=== PATIENT | male | born 1965 | race Caucasian/White ===

== ENCOUNTER 2023-02-04 22:13 | Outpatient (REF) | payer MEDICAID, SELFPAY ==
[2023-02-04 22:04] LABS: HCT 46.1 % (40.0-50.0); HGB 15.2 g/dL (13.5-17.5); MCH 28.8 pg (27.0-33.0); MCV 88 fL (80-95); MPV 10.3 fL (8.0-11.0); Platelet Count 254 10^3/uL (130-400); RBC 5.27 10^6/uL (4.36-5.78); RDW 13.2 % (11.8-14.1); RDW-SD 42.8 fL
[2023-02-04 22:17] LABS: Hemoglobin A1C 5.6 % (<5.7)
[2023-02-04 22:21] LABS: ALT 21 U/L (16-63); AST 17 U/L (15-37); Albumin 4.1 g/dL (3.4-5.0); Alkaline Phosphatase 69 U/L (46-116); Anion Gap 11.2 mmol/L (3-11); BUN 10 mg/dL (7-18); Bilirubin, Total 0.5 mg/dL (0.2-1.0); CO2 24.8 mmol/L (21.0-32.0); CREATININE 0.9 mg/dL (0.70-1.30); Calcium 9.2 mg/dL (8.5-10.1); Calculated LDL 142 mg/dL (<100); Chloride 105 mmol/L (98-107); Cholesterol 205 mg/dL (<200); Estimated GFR 100.24 (mL/min/1.73m2); Glucose 93 mg/dL (74-106); HDL Cholesterol 45 mg/dL (40-60); Potassium 4.3 mmol/L (3.5-5.1); Sodium 141 mmol/L (136-145); TSH (W/Ref FT4) 0.71 uIU/mL (0.36-3.74); Total Protein 7.2 g/dL (6.4-8.2); Triglyceride 92 mg/dL (<150)
[2023-02-04 22:29] LABS: Amylase 61 U/L (25-115); Lipase 32 U/L (16-77)
== END 2023-02-04 22:14 | disposition home or self-care (01) ==
LOC: LBN 22:13
PROVIDERS: PCP Nurse Practitioner Family; Visit Provider Nurse Practitioner Family
DX: F32.9 Major depressive disorder, single episode, unspecified (principal); F41.9 Anxiety disorder, unspecified; G89.29 Other chronic pain; J44.9 Chronic obstructive pulmonary disease, unspecified; M79.7 Fibromyalgia
CPT/HCPCS: 80053; 80061; 83690; 85027; 82150; 83036; 84443

== ENCOUNTER 2023-02-25 03:55 | Outpatient (CLI) | payer MEDICAID, SELFPAY ==
[2023-02-25] MEDS: Levalbuterol HFA 15 GM INH 4 PUFF IH (14:37)
[2023-02-25] MEDS: Inhaler, Assist Device 1 EACH MC (14:38)
--- NOTE | 2023-02-25 15:45 | W.6MWT ---
Date of service: 02/25/23 Time of Service: 12:50 6 Minute Walk Test Note: 6 Minute Walk Test Distance walked: 1300 feet Desaturations: 97% to 92% Heart rate changes: 89 to 113 bpm Recommendation: No supplemental O2 needed Chika Vaughan MD Pulmonary & Critical Care Medicine
--- NOTE | 2023-03-10 11:07 | W.PFT ---
Date of service: 03/27/23 Time of Service: 13:12 Pulmonary Function Test Result Indications: COPD Interpretation Spirometry: There is severe airflow limitation. No significant bronchodilator response. Lung Volumes: There is air trapping and hyperinflation Diffusion Capacity: Decreased diffusion Airway Pressure: Increased airways resistance Impression Severe airflow limitation with air trapping and a decreased diffusion. Clinical Correlation therefore is recommended.
== END 2023-02-25 03:56 | disposition home or self-care (01) ==
LOC: RT 03:55
PROVIDERS: PCP Nurse Practitioner Family; Visit Provider Physician Assistant Surgical
DX: J44.9 Chronic obstructive pulmonary disease, unspecified (principal)
CPT/HCPCS: 94060; 94726; 94729

== ENCOUNTER → 2023-02-28 00:14 | Outpatient (CLI) | payer MEDICAID, SELFPAY ==
[2023-02-28] MEDS: Normal Saline - Diluent 50 ML VIAL IJ (15:35)
[2023-02-28] MEDS: Barium Sulfate 2% W/V-Berry Smoothie 450 ML BTL 900 ML PO (15:36)
[2023-02-28] MEDS: Omnipaque 350 MG/ML 500 ML BTL-Imaging package 100 ML IJ (15:37)
--- NOTE | 2023-02-28 15:50 | DI.CT_ITS ---
Exam(s) CT ABDOMEN PELVIS W EXAM: CT ABDOMEN PELVIS W CLINICAL HISTORY: continued abd pain,luq,r10.12 TECHNIQUE: Imaging Protocol: Axial computed tomography images with coronal and sagittal reformatted images were created and reviewed CONTRAST MATERIAL: Intravenous: Omnipaque 350 Contrast volume:100 mL Oral: Yes COMPARISON: CT UPPER ABD WITH CONTRAST (P) from 06/02/2015 FINDINGS: ABDOMEN: Lung Bases: Mild emphysematous changes are seen in the lung bases. There is a stable 5 mm nodule in the right lower lobe. Liver: Normal density. No measurable mass. Portal, Superior Mesenteric, and Splenic Veins: Unremarkable. Gallbladder and Biliary Tract: No radiodense calculus or dilation. Pancreas: Normal density, no abnormal calcifications or inflammatory process. Spleen: Normal. Adrenals: No masses seen. Kidneys: Normal size, contour and axis. No radiodense stones or obstructive uropathy. No masses seen. Abdominal Aorta: Abdominal portion non-dilated. Atherosclerosis. There is occlusion of the left comm on iliac artery with reconstitution of the left internal and external carotid arteries distally. Bowel: No obstruction or bowel wall thickening. Appendix is unremarkable. Peritoneal Cavity: No ascites, collection or mesenteric inflammatory response. No free air. Lymph Nodes: Within normal limits. Bones: Within normal limits for the patient's age. Soft Tissues: Unremarkable. PELVIS: Bladder: There is a 2.3 x 3.7 cm diverticulum arising from the right aspect of the urinary bladder. Reproductive Organs: Mildly enlarged. Lymph Nodes: Within normal limits. Bones: Within normal limits for the patient's age. IMPRESSION: 1. Occlusion of the left common iliac artery with reconstitution of the left internal neck sternal il iac arteries distally. 2. Atherosclerosis. 3. Stable 5 mm nodule in the right lower lobe. 4. Right-sided urinary bladder diverticulum. RADIATION DOSE DELIVERED: Total DLP DATA REPOSITORY: All CT scans at this facility are submitted to the National Radiology Data Registry (NRDR) Dose Index Registry (DIR) with the [employer] (ACR). RADIATION OPTIMIZATION: All CT scans at this facility use at least one of these dose optimization te chniques: automated exposure control; mA and/or kV adjustment per patient size (includes targeted exa ms where dose is matched to clinical indication); or iterative reconstruction.
== END ==
PROVIDERS: PCP Nurse Practitioner Family; Visit Provider Nurse Practitioner Family
DX: I74.5 Embolism and thrombosis of iliac artery (principal); R91.1 Solitary pulmonary nodule; N32.3 Diverticulum of bladder
CPT/HCPCS: 74177

== ENCOUNTER 2023-03-13 01:48 | Outpatient (CLI) | payer MEDICAID, SELFPAY ==
--- NOTE | 2023-03-13 07:30 | DI.CTLCSR_ITS ---
Exam(s) CT CHEST LUNG CANCER SCREEN EXAM: CT CHEST LUNG CANCER SCREEN CLINICAL HISTORY: Screening for lung cancer,current smoker, f17.210 TECHNIQUE: Imaging Protocol: Axial computed tomography images with coronal and sagittal reformatted images were created and reviewed. Low dose screening protocol. COMPARISON: CT UPPER ABD WITH CONTRAST (P) from 06/02/2015 FINDINGS: Tracheobronchial tree: No bronchiectasis or mucus plugging.. Mediastinum and Alison: No dominant adenopathy or fluid collection. Pulmonary parenchyma: No consolidation or dominant measurable mass. Moderate to severe emphysematous changes, greater in the upper lobes. Emphysematous changes. Lung Nodules: Stable 5 millimeter nodule lateral inferior right lower lobe. 5 millimeter nodule righ t middle lobe. 3 millimeter nodule posterior right upper lobe. Pleura: No effusion. No pneumothorax. Heart: The heart is not dilated. Moderate coronary artery calcifications are seen. Aorta: Thoracic aorta non-dilated.Mild atherosclerotic changes. Upper abdomen: Unremarkable. Bones: Unremarkable for age. Soft Tissues: Unremarkable. IMPRESSION: No suspicious pulmonary nodules. Lung RADS Cat 2. Lung-RADS 1.0 CATEGORIES: Category 0 - Prior chest CT exam(s) being located for comparison. Category 1 - Annual screening in 12 months. No nodules or definitely benign nodules. Category 2 - Annual screening in 12 months. Benign appearance. Nodules with low likelihood of becomin g active cancer. Category 3 - 6-month follow-up. Probably benign. Short-term follow-up suggested. Nodules with low lik elihood of becoming active cancer. Category 4A - 3-month follow-up and CT/PET if >8 mm in size. Suspicious finding. Findings which requi re additional testing. Category 4B - Findings which require additional testing and tissue sampling. Category 4X - Category 3 or 4 nodules with additional features or imaging findings that increases the suspicion of malignancy. Modifier S- Potentially clinically significant findings (non lung cancer) RADIATION DOSE DELIVERED: Total DLP DATA REPOSITORY: All CT scans at this facility are submitted to the National Radiology Data Registry (NRDR) Dose Index Registry (DIR) with the [employer] (ACR). RADIATION OPTIMIZATION: All CT scans at this facility use at least one of these dose optimization te chniques: automated exposure control; mA and/or kV adjustment per patient size (includes targeted exa ms where dose is matched to clinical indication); or iterative reconstruction.
== END 2023-03-13 01:49 ==
PROVIDERS: PCP Nurse Practitioner Family; Visit Provider Physician Assistant Surgical
DX: F17.210 Nicotine dependence, cigarettes, uncomplicated (principal); Z12.2 Encounter for screening for malignant neoplasm of respiratory organs
CPT/HCPCS: 71271

== ENCOUNTER 2023-11-21 08:37 | Outpatient (CLI) | payer MEDICAID, SELFPAY ==
--- NOTE | 2023-11-21 07:45 | DI.CT_ITS ---
Exam(s) CT CHEST PE CTA EXAM: CT CHEST PE CTA CLINICAL HISTORY: Acute dyspnea, R06.00. TECHNIQUE: Imaging Protocol: CT angiography of the chest was performed using pulmonary embolus kristian col. Multi planar reconstructions were performed. CONTRAST MATERIAL: Intravenous: Omnipaque 350 Contrast volume: 100 cc COMPARISON: No exams were available for comparison FINDINGS: CHEST: PULMONARY ARTERIES: There are no intraluminal filling defects to suggest acute pulmonary emboli. LUNGS: Hyperinflation but no infiltrates nor pleural effusions. No evidence of pulmonary infarction. No ominous pulmonary nodules. No facet nicotine focal findings in the trachea and left mainstem br onchus. There is some mucus in the proximal right mainstem bronchus noted. There is no bronchiectas is.. MEDIASTINUM: There is no hilar nor mediastinal adenopathy. Visualized thyroid unremarkable. CARDIAC: Heart size is upper normal. There is no pericardial effusion.Caliber of the thoracic aorta is within normal limits. No evidence of aortic dissection. There is no significant shift of the inte rventricular septum. OSSEOUS: No fractures. No significant osseous lesions . IMPRESSION: 1. No evidence of acute pulmonary emboli. No evidence of pulmonary infarction.No pulmonary infiltrat es nor pleural effusions. 2. Some mucus is noted the right mainstem bronchus. There is no bronchiectasis. 3. See separate abdominal CT angiography report for significant findings. RADIATION DOSE DELIVERED: Total DLP DATA REPOSITORY: All CT scans at this facility are submitted to the National Radiology Data Registry (NRDR) Dose Index Registry (DIR) with the [employer] (ACR). RADIATION OPTIMIZATION: All CT scans at this facility use at least one of these dose optimization te chniques: automated exposure control; mA and/or kV adjustment per patient size (includes targeted exa ms where dose is matched to clinical indication); or iterative reconstruction.
--- NOTE | 2023-11-21 07:45 | DI.CT_ITS ---
Exam(s) CT ABDOMEN PELVIS CTA EXAM: CT ABDOMEN PELVIS CTA CLINICAL HISTORY: abdominal pain, iliac artery occlusion, R10.84. TECHNIQUE: Imaging Protocol: Axial computed tomography images with coronal and sagittal reformatted images were created and reviewed CONTRAST MATERIAL: Intravenous: Omnipaque 350 Contrast volume:100 ml Oral: None COMPARISON: CT CT CHEST PE CTA from 11/21/2023 FINDINGS: CTA ABDOMEN: ABDOMINAL AORTA/AORTOILIAC SEGMENTS: There is a fusiform infrarenal abdominal aortic aneurysm extending from just below the renal arteries down an to just above the bifurcation. There is abundant mural thrombus in this aneurysm. Maximum external diameter of the aneurysm is 2.6 cm. The left common iliac artery is occluded at its origin. The left external Iliac artery is reconstituted via retrograde flow in the left internal iliac artery. There is a mode rate focal stenosis at the mid aspect of the left external iliac artery. There is a focal stenosis at the origin of the left internal iliac artery. The right common iliac artery is not occluded but exhibits atherosclerotic involvement and there is a nonocclusive focal dissections vessel. There is, however, no significant stenosis at the junction o f the right common and right external iliac arteries and no significant stenosis in the right externa l iliac artery. There is moderate stenosis at the origin of the right internal iliac artery. Common femoral artery on the right side exhibits some posterior calcified plaque but no occlusion. T he proximal right SFA is patent. Left common femoral artery is a thin but patent vessel. Partially visualized proximal left SFA appears patent. There is no ascites. No obvious ischemic appearing bowel loops. LIVER: There are no focal hepatic lesions nor dilatation of intrahepatic ducts. GALLBLADDER/BILIARY: No obvious acute gallbladder pathology. CBD is not dilated. PANCREAS: Pancreas is difficult to delineate to due to the paucity of fat. SPLEEN: Spleen is not enlarged. There are no intrasplenic lesions. ADRENALS: There are no significant adrenal masses. KIDNEYS: No cysts evident. No calculi nor hydronephrosis. No solid renal masses. ABDOMINAL AORTA: The abdominal aorta is not enlarged. LYMPH NODES: There is no retroperitoneal nor para-aortic adenopathy. No obvious mesenteric masses. ABDOMINAL WALL: No evidence of significant anterior abdominal wall hernia. GI: There is no evidence of bowel obstruction, free air, nor abscess. PELVIS: LYMPH NODES: There is no intrapelvic nor inguinal adenopathy. GI: No evidence of appendicitis.No evidence of sigmoid diverticulitis. URINARY BLADDER: No calculi nor masses evident REPRODUCTIVE: Prostate size upper normal. OSSEOUS: No significant osseous lesions. IMPRESSION: 1. Fusiform infrarenal abdominal aortic aneurysm maximum external diameter 2.6 cm. 2. There is OCCLUSION OF THE LEFT COMMON ILIAC ARTERY AT ITS ORIGIN. The left external iliac artery is reconstituted by retrograde flow in the left internal iliac artery. 3. There is no occlusion of the right common iliac artery but there is significant atherosclerotic di sease in this vessel as well as nonocclusive focal dissection evident in this vessel. There is no cr itical stenosis at its junction with the right external iliac artery. 4. Celiac artery, SMA, DIANNA, and renal arteries are patent without significant stenosis evident in the se vessels. RADIATION DOSE DELIVERED: Total DLP DATA REPOSITORY: All CT scans at this facility are submitted to the National Radiology Data Registry (NRDR) Dose Index Registry (DIR) with the [employer] (ACR). RADIATION OPTIMIZATION: All CT scans at this facility use at least one of these dose optimization te chniques: automated exposure control; mA and/or kV adjustment per patient size (includes targeted exa ms where dose is matched to clinical indication); or iterative reconstruction.
[2023-11-21] MEDS: Normal Saline - Diluent 50 ML VIAL IJ (16:45)
[2023-11-21] MEDS: Omnipaque 350 MG/ML 100 ML BTL IJ (16:45)
--- NOTE | 2023-11-21 17:23 | DI.VRAD_ITS ---
PROCEDURE INFORMATION: Exam: CTA Abdomen and Pelvis With Contrast Exam date and time: 11/21/2023 4:23 PM Age: 58 years old Clinical indication: Other: Abdominal pain, iliac artery occlusion, r10.84 TECHNIQUE: Imaging protocol: Computed tomographic angiography of the abdomen and pelvis with contrast. Exam focused on the arteries. 3D rendering (Not supervised by radiologist): MIP and/or 3D reconstructed images were created by the technologist. Contrast material: 350; Contrast volume: 100 ml; Contrast route: INTRAVENOUS (IV); COMPARISON: CT ABDOMEN PELVIS W 02/28/2023 3:40 PM FINDINGS: Aorta: Redemonstrated is aneurysmal dilatation of the infrarenal abdominal aorta that measures 2.9 x 2.4 cm. There is eccentric mural thrombus especially on the right side of the aorta resulting in 50-60 % stenosis when compared to the distal portion of the aorta. No evidence of dissection. Celiac trunk and mesenteric arteries: No occlusion or significant stenosis. Renal arteries: No occlusion or significant stenosis. Right iliac arteries: Proximal common iliac artery has 50-60% stenosis. Left iliac arteries: Redemonstrated is occlusion of the common artery. Pelvic vessels reconstitute the external iliac artery. Liver: No mass. Gallbladder and biliary ducts: Unremarkable. No calcified stones. No ductal dilation. Pancreas: Unremarkable. No mass. No ductal dilation. Spleen: Unremarkable. No splenomegaly. Adrenal glands: Unremarkable. No mass. Kidneys and ureters: Unremarkable. No solid mass. No hydronephrosis. Stomach and bowel: Unremarkable. No obstruction. No mucosal thickening. Appendix: No evidence of appendicitis. Intraperitoneal space: Unremarkable. No free air. No significant fluid collection. Lymph nodes: Unremarkable. No enlarged lymph nodes. Urinary bladder: Unremarkable. No mass. Reproductive: Unremarkable as visualized. Bones/joints: No acute fracture. Soft tissues: Unremarkable. IMPRESSION: 1. Redemonstrated is mural thrombus within a small infrarenal abdominal aorta aneurysm that has moderate stenosis. 2. Redemonstrated is occlusion of the left common iliac artery. There is reconstitution of the external iliac artery by pelvic collaterals. 3. Redemonstrated is moderate stenosis of the proximal right iliac artery. Dictated and Authenticated by: Heriberto Garcia MD. Ordering:CARLYLE Shultz MD
--- NOTE | 2023-11-21 17:36 | DI.VRAD_ITS ---
PROCEDURE INFORMATION: Exam: CTA Chest With Contrast Exam date and time: 11/21/2023 4:23 PM Age: 58 years old Clinical indication: Other: Acute dyspnea TECHNIQUE: Imaging protocol: Computed tomographic angiography of the chest with contrast. Exam focused on the arteries. 3D rendering (Not supervised by radiologist): MIP and/or 3D reconstructed images were created by the technologist. Contrast material: 350; Contrast volume: 100 ml; Contrast route: INTRAVENOUS (IV); COMPARISON: CT CHEST LUNG CANCER SCREEN 03/13/2023 9:28 AM FINDINGS: Pulmonary arteries: Normal. No pulmonary emboli. Aorta: Unremarkable. No aortic aneurysm. No aortic dissection. Lungs: Moderate centrilobular emphysema. No consolidations, nodules or masses. Pleural spaces: Unremarkable. No pneumothorax. No pleural effusion. Heart: Unremarkable. No cardiomegaly. No pericardial effusion. Lymph nodes: Unremarkable. No enlarged lymph nodes. Bones/joints: Unremarkable. No acute fracture. Soft tissues: Unremarkable. IMPRESSION: 1. Examination negative for pulmonary emboli, thoracic aortic aneurysm or dissection. 2. See dedicated abdominal and pelvic CTA examination for further details. Dictated and Authenticated by: Heriberto Garcia MD. Ordering:CARLYLE Shultz MD
== END 2023-11-21 08:57 ==
LOC: DI 08:38
PROVIDERS: PCP Nurse Practitioner Family; Visit Provider Physician Assistant
DX: R06.00 Dyspnea, unspecified (principal); R10.84 Generalized abdominal pain
CPT/HCPCS: 71275; 74174; J3490

== ENCOUNTER 2024-02-17 04:30 | Outpatient (CLI) | payer MEDICAID, SELFPAY ==
[2024-02-17 12:23] LABS: HCT 48.8 % (40.0-50.0); HGB 16.1 g/dL (13.5-17.5); MCH 29.7 pg (27.0-33.0); MCV 90 fL (80-95); MPV 10.4 fL (8.0-11.0); Platelet Count 313 10^3/uL (130-400); RBC 5.43 10^6/uL (4.36-5.78); RDW 13.2 % (11.8-14.1); RDW-SD 43.3 fL; WBC 7.42 10^3/uL (4.4-10.8)
[2024-02-17 12:43] LABS: ALT 32 U/L (16-63); AST 22 U/L (15-37); Alkaline Phosphatase 85 U/L (46-116); Anion Gap 6.1 mmol/L (3-11); BUN 13 mg/dL (7-18); Bilirubin, Total 0.43 mg/dL (0.2-1.0); CO2 31.9 mmol/L (21.0-32.0); CREATININE 0.9 mg/dL (0.70-1.30); Calcium 9.3 mg/dL (8.5-10.1); Calculated LDL 71 mg/dL (<100); Chloride 105 mmol/L (98-107); Cholesterol 144 mg/dL (<200); Estimated GFR 99.62 (mL/min/1.73m2); Glucose 92 mg/dL (74-106); HDL Cholesterol 55 mg/dL (40-60); Sodium 143 mmol/L (136-145); TSH (W/Ref FT4) 1.71 uIU/mL (0.36-3.74); Total Protein 8.1 g/dL (6.4-8.2); Triglyceride 92 mg/dL (<150)
[2024-02-17 12:56] LABS: Hemoglobin A1C 5.5 % (<5.7)
== END 2024-02-17 04:31 | disposition home or self-care (01) ==
LOC: LOS 04:31
PROVIDERS: PCP Nurse Practitioner Family; Referring Provider Nurse Practitioner Family; Visit Provider Nurse Practitioner Family
DX: Z00.00 Encounter for general adult medical examination without abnormal findings (principal); F41.9 Anxiety disorder, unspecified; F32.9 Major depressive disorder, single episode, unspecified; I10 Essential (primary) hypertension; R10.9 Unspecified abdominal pain; G89.29 Other chronic pain; J44.9 Chronic obstructive pulmonary disease, unspecified; F17.210 Nicotine dependence, cigarettes, uncomplicated; M79.7 Fibromyalgia; Z12.5 Encounter for screening for malignant neoplasm of prostate
CPT/HCPCS: 36415; 80053; 80061; 84153; 85027; 83036; 84443

== ENCOUNTER 2024-04-26 05:26 | Inpatient (IN) | payer MEDICAID, SELFPAY ==
[2024-04-26] VITALS (128 sets, daily range): BP systolic 65–199; BP diastolic 50–126; PULSE 81–163; RESP 2–36; TEMP 35.1–37.4; O2SAT 67–100
--- NOTE | 2024-04-26 05:15 | RT.EKG_ITS ---
APPROVED REPORT Exam: Resting ECG Reason for Exam: Respiratory distress Patient Location: E HR:140 bpm ECG Measurements Heart Rate 140 AXIS NJ 119 P 85 QRSd 91 QRS 87 QT 297 T 71 QTc 454 Conclusion Sinus tachycardia...rate> 99 Nonspecific T abnormalities, lateral leads...T <-0.10mV, I aVL V5 V6 Normal [place] I have reviewed and interpreted ECG and agree with software generated interpretation.
--- NOTE | 2024-04-26 05:30 | DI.RAD_ITS ---
Exam(s) XR PORTABLE CHEST AP EXAM: XR PORTABLE CHEST AP CLINICAL HISTORY: SOB. TECHNIQUE: 2D digital imaging was performed. COMPARISON: CR ABD FLAT UPRIGHT PA CHEST from 04/13/2015 FINDINGS: Single AP portable view. Chest leads in place Heart size normal. The mediastinum is not widened. Bilateral hyperinflation noted. No infiltrates in the left lung. Slightly increased markings in the right lung base. Also mild blunting of the costophrenic angles which may imply small bilateral pleu ral effusions. IMPRESSION: Hyperinflation bilaterally. Possible mild infiltrate right lung base. Bilateral pleural based scarring versus small bilateral pleural effusions. DATA REPOSITORY: RADIATION DOSE DELIVERED:
[2024-04-26] MEDS: LORazepam 2 MG/ML VIAL (05:35)
[2024-04-26] MEDS: Normal Saline 1,000 ML 1000 ML IV (05:37)
[2024-04-26] MEDS: MAGNESIUM SULFATE 2 GM/50 ML BAG 300 GM (05:38)
[2024-04-26] MEDS: methylPREDNISolone SUCC 125 MG VIAL (05:38)
--- NOTE | 2024-04-26 05:44 | ED.GENADUL_ITS ---
Discharge Plan Disposition [facility] Condition: Critical Discharge Details Clinical Impression: COPD with acute exacerbation, Acute respiratory failure, Demand ischemia Primary Care Provider: Celeste Rodrigues ED Provider: Tyson Kimble Meds and New Rx's Prescriptions: No Action pregabalin [Lyrica] 25 mg capsule 25 mg PO BID Qty: 180 3RF ipratropium-albuterol 0.5 mg-3 mg(2.5 mg base)/3 mL solution for nebulization 3 ml inhalation QID PRN (Reason: wheezing) Qty: 180 12RF Airsupra 90-80 mcg/actuation HFA aerosol inhaler 2 inh inhalation ONCE Qty: 10.7 12RF Rx Instructions: as a single dose; may repeat up to 6 doses per day (12 inhalations) albuterol sulfate 90 mcg/actuation HFA aerosol inhaler 2 puff Inhalation Q6H PRN Qty: 3 4RF aspirin [Adult Aspirin Regimen] 81 mg tablet,delayed release (DR/EC) 81 mg PO DAILY Qty: 90 1RF atorvastatin 20 mg tablet 20 mg PO DAILY Qty: 90 3RF cilostazol 100 mg tablet 100 mg PO BID Qty: 180 1RF losartan 25 mg tablet 25 mg PO DAILY Qty: 90 1RF Spiriva Respimat 2.5 mcg/actuation mist 2 puff inhalation DAILY Qty: 4 2RF budesonide-formoterol [Symbicort] 160-4.5 mcg/actuation HFA aerosol inhaler 2 puff inhalation Q12H Qty: 20.4 1RF HPI General Mode of arrival: EMS . Date/Time Provider Initiated Documentation: 04/26/24 05:44 . Limitations to Documentation: other (resp distress) . Information obtained by: patient, EMS, RN notes reviewed and old records reviewed . HPI Narrative: Patient brought into ED by ambulance with respiratory distress. Patient with history of COPD. He still smokes. He is unable to provide much of a history. Per EMS it is reported that he has been having increased difficulty breathing over the last 2 to 3 days. Unknown whether he has had fever or not. Denies any type of pain. Received a DuoNeb treatment and is now on continuous albuterol neb. Did not tolerate CPAP in the field. IV established just prior to arrival, no meds given. Related Data Home Medications ?Medication ?Instructions ?Recorded ?Confirmed albuterol sulfate 90 mcg/actuation 2 puff inhalation Q6H PRN ##3 11/28/23 03/09/24 aerosol inhaler aspirin 81 mg tablet,delayed 81 mg PO DAILY #90 tabs 11/28/23 03/09/24 release (Adult Aspirin Regimen) atorvastatin 20 mg tablet 20 mg PO DAILY #90 tabs 11/28/23 03/09/24 cilostazol 100 mg tablet 100 mg PO BID #180 tabs 11/28/23 03/09/24 losartan 25 mg tablet 25 mg PO DAILY #90 tabs 11/28/23 03/09/24 ipratropium 0.5 mg-albuterol 3 mg 3 ml inhalation QID PRN wheezing 12/02/23 03/09/24 (2.5 mg base)/3 mL nebulization #180 mL soln tiotropium bromide 2.5 2 puff inhalation DAILY #4 grams 12/10/23 03/09/24 mcg/actuation mist for inhalation (Spiriva Respimat) budesonide-formoterol HFA 160 2 puff inhalation Q12H #20.4 grams 12/16/23 03/09/24 mcg-4.5 mcg/actuation aerosol inhaler (Symbicort) pregabalin 25 mg capsule (Lyrica) 25 mg PO BID #180 caps 02/10/24 03/09/24 albuterol 90 mcg-budesonide 80 2 inh inhalation ONCE #10.7 grams 03/10/24 03/10/24 mcg/actuation HFA aerosol inhaler (Airsupra) Previous Rx's ?Medication ?Instructions ?Recorded albuterol sulfate 90 mcg/actuation 2 puff inhalation Q6H PRN ##3 11/28/23 aerosol inhaler aspirin 81 mg tablet,delayed 81 mg PO DAILY #90 tabs 11/28/23 release (Adult Aspirin Regimen) atorvastatin 20 mg tablet 20 mg PO DAILY #90 tabs 11/28/23 cilostazol 100 mg tablet 100 mg PO BID #180 tabs 11/28/23 losartan 25 mg tablet 25 mg PO DAILY #90 tabs 11/28/23 ipratropium 0.5 mg-albuterol 3 mg 3 ml inhalation QID PRN wheezing 12/02/23 (2.5 mg base)/3 mL nebulization #180 mL soln tiotropium bromide 2.5 2 puff inhalation DAILY #4 grams 12/10/23 mcg/actuation mist for inhalation (Spiriva Respimat) budesonide-formoterol HFA 160 2 puff inhalation Q12H #20.4 grams 12/16/23 mcg-4.5 mcg/actuation aerosol inhaler (Symbicort) pregabalin 25 mg capsule (Lyrica) 25 mg PO BID #180 caps 02/10/24 albuterol 90 mcg-budesonide 80 2 inh inhalation ONCE #10.7 grams 03/10/24 mcg/actuation HFA aerosol inhaler (Airsupra) Allergies Allergy/AdvReac Type Severity Reaction Status Date / Time No Known Allergies Allergy Unverified 03/09/24 13:26 General Stated Complaint: SOB PEGGY: 2 Review of Systems Unobtainable due to (Unobtainable due to respiratory distress) Exam Narrative Exam Narrative: Const: Thin male in respiratory distress. Somewhat ashen and cyanotic. VS per triage. HEENT: NC/AT. Normal facial exam. Neck: Supple. Trachea midline. Lungs: Respiratory distress with minimal air movement. Cor: RRR without murmur. Tachy GI: Soft/ND/NT. Neuro: Somewhat altered. Cranial nerves II - XII grossly intact. No gross motor or sensory deficit. Ext: BLE edema R > L. Course Vital Signs Vital signs: Vital Signs Temperature 95.2 F L 04/26/24 05:24 Pulse 163 H 04/26/24 05:24 Respiratory Rate 28 H 04/26/24 05:24 Pulse Oximetry 67 L 04/26/24 05:24 Temperature 95.2 F L 04/26/24 05:24 Temperature Source Tympanic 04/26/24 05:24 Pulse 163 H 04/26/24 05:24 Respiratory Rate 28 H 04/26/24 05:24 Blood Pressure Position Sitting 04/26/24 05:24 Pulse Oximetry 67 L 04/26/24 05:24 Oxygen Delivery Method Room Air 04/26/24 05:24 Oxygen Flow Rate 0 04/26/24 05:24 Procedure Airway Management Date of Procedure: 04/26/24 Time of Procedure: 06:00 Patient Consented: Emergent Case Indication: Respiratory failure Provider that performed the procedure: Tyson Kimble Mallampati Class: Unable to Assess Sedation administered by provider performing procedure: Yes Sedation Given: Etomidate Route of Administration: IV. Etomidate dose(mg): 20.. Induction setup: BiPAP/CPAP and Delayed Sequence Induction Ultrasound: Not used Airway Type: Intubation Laryngoscopy: Edentulous. Grade: Airway Grade: 1. Airway Blades: Glidescope 3. Endotracheal Tube: Oral and 7.5mm. Secured at(cm): 24. Placement Confirmation: Cuff inflated with minimally occlusive pressure. Paralytic(indicate dose given): Rocuronium Post Induction Medication Management(indicate dose given): Managed by Requesting Provider and Propofol (mcg/kg/min) (40) Gastric Tube: Other (placed by me) Procedure Complications: Other (tube dislodged when stylet being removed) Procedure Outcome: Successful Procedure Description Note: Patient had been on BiPAP which he had been tolerating and was left on BiPAP just prior to induction. Patient given 20 of etomidate and 100 of rocuronium. He was intubated on the first attempt with use of glide scope. Unfortunately, tube was dislodged while stylette being removed. This was recognized immediately by me due to sound of air leak. Confirmed with glide scope that the tip of tube was past the vocal cords but the balloon was sitting right at the cords. Balloon deflated and attempted to advance ET tube. This was unsuccessful so stylette was replaced, ET tube passed through the cords once again, confirmation of intubation with breath sounds and end-tidal CO2. Medical Decision Making Patient presenting to ED via EMS with respiratory distress. Patient has history of COPD and continues to smoke. Per EMS people at the house where he was staying report 2 to 3 days of increasing shortness of breath. Patient was given DuoNeb en route and albuterol continuous. He did not tolerate CPAP. On arrival he is cyanotic, in distress, somewhat altered. We were able to get the BiPAP mask on. He was quite anxious with this but with 1 mg of lorazepam IV he tolerated it fairly well. Second IV was established. IV Solu-Medrol, magnesium given. Heart rate noted to be 150. Liter of saline ordered. Laboratory studies including VBG, Fluvid, portable chest x-ray obtained. Patient placed on continuous albuterol neb. Portable chest x-ray per my read showed hyperinflation but no pneumothorax or infiltrate. His EKG is sinus tachycardia with some nonspecific lateral ST changes likely rate related. Laboratory studies with normal white count and hemoglobin. VBG with a pH 7.23 and pCO2 of 58. Chemistries, kidney function normal. Liver function with mild abnormality. Initial troponin 341. Patient did well for about an hour with improvement of his work of breathing on BiPAP with continuous neb running. He actually had some increased aeration and wheezing heard. However, he began to have increased work of breathing and anxiety once again. Lung sounds were markedly diminished. Seem to be imminent respiratory failure. Had confirmed with him that intubation would be okay. With his decline elected to intubate. He was left on BiPAP. Saturations were 100%. He was given etomidate and rocuronium. BiPAP removed and patient intubated easily with a 7.5 ET tube using glide scope with MAC 3. Unfortunately, ET tube was dislodged during stylette removal. This was recognized by me almost immediately because of the abnormal sound of air leak with bagging. [place] scope reinserted and the tip of ET tube was noted to be through the cords but the balloon was above the cord. Balloon was let down but it was unable to advance the ET tube. ET tube removed and stylette replaced. Patient reintubated once again without difficulty. There was no issues removing the stylette. Breath sounds were heard though very diminished. End-tidal CO2 confirmed placement. Patient was started on propofol drip for sedation. NG tube was placed by me without difficulty. Chiu catheter placed by nursing. Postintubation chest x-ray obtained. Per my read there continues to be no pneumothorax. ET tube and NG tube in appropriate position. Repeat troponin was obtained approximately 90 minutes after the first. This is 397. I suspect this is demand, NSTEMI type II. Will continue continuous nebs through the ET tube. He remains quite tachycardic and he has bilateral lower extremity edema right much greater than left. While I suspect this is all COPD exacerbation I will obtain CTA to rule out pulmonary embolus. Discussed with hospitalist. Patient accepted to ICU for further management of COPD exacerbation, respiratory failure. Medical Records Medical records reviewed: Yes I reviewed the patient's medical records. Medical records narrative: Pulmonary notes Imaging Data Radiologic Study: Attestation: I personally reviewed and interpreted this imaging study as follows: Imaging: X-Ray My impression: Chest x-ray on arrival shows hyperinflation of lungs with no infiltrate. Postintubation chest x-ray shows no evidence pneumothorax with the ET tube and NG tube in position. Lab Data Lab results reviewed: Yes I reviewed the patient's lab results. Lab results narrative: See [facility] ECG Data Attestation: I personally reviewed and interpreted this ECG (s) as follows: Prior ECG tracings: not available for review Interpretation: See EKG/MDM Critical Care Time Critical Care Time Critical Care Time: Yes Total Critical Care Time: 90 Attestation: Upon my evaluation, this patient had a high probability of imminent or life- threatening deterioration, which required my direct attention, intervention, and personal management. I have personally provided 90 minutes of critical care time exclusive of time spent on separately billable procedures. Time includes monitoring for potential decompensation, ordering of tests and medications, review of laboratory and radiology results, discussion with consultants and documentation . Interventions were performed as documented above in procedures. [facility] All Active Problems (Updated 04/26/24 @ 08:15 by Tyson Kimble MD) Demand ischemia (Acute) Elevated troponin (Acute) COPD with acute exacerbation (Acute) Acute respiratory failure (Acute) Homeless (Acute) Bilateral tinnitus (Acute) Nicotine dependence, cigarettes, uncomplicated (Acute) Iliac artery occlusion, left (Acute) Screening for malignant neoplasm of colon declined (Acute) Low back pain (Chronic 07/11/20) MRI at [place]- mild spondylotic changes w/ no significant stenosis. A left foraminal region posterior annular fissure is present at L4-5 intervertebral disc w/ no herniation Fibromyalgia (Acute ~06/19/18) [facility] rheumatology visit in 2019 Chronic abdominal pain (Acute) CT at [place] 08/14/20 incidential occlusion of the left common iliac artery since previous study in 05/18/19 Otherwise no acute process identified. Unspecified dental caries (Acute) and gum disease Tubular adenoma (Acute 05/22/16) Depression (Acute) Anxiety (Acute) Medical History COPD (chronic obstructive pulmonary disease) Asthma NSTEMI (non-ST elevated myocardial infarction) (10/21/22) Hypertension PAD (peripheral artery disease) Per [facility] vascular Dr. Tori Diaz. ABIs demonstrate: Right mild, left moderate/severe GERD (gastroesophageal reflux disease) Surgical History History of open reduction and internal fixation (ORIF) procedure Hx of appendectomy Colonoscopy - IV Sedation (05/22/16) with polypectomy by forceps Family History Mother Heart disease Asthma Depression Father Personal history of malignant neoplasm LUNG Stroke Hyperlipidemia Social History Smoking/Tobacco Use Status: Current every day Tobacco Type: cigarettes Tobacco: How many years used: 30 Second Hand Exposure: Yes Smoking risk assessment performed?: Yes Alcohol Intake: never Drug use: Socially Substance use type: marijuana Caregiver/Support person: Yes Household members: none Housing: homeless Communication Needs: None Do you need help understanding health information?: Often Pets and animals: No Sexually active: No Do you think of yourself as: straight/heterosexual Current gender identity: male What is your relationship status?: never How often do you talk on the phone with friends or family?: three or more times per week How often do you get together with friends or relatives?: decline to answer Do you belong to any clubs or organized social groups?: no Panel score (0-1 are the most socially isolated patients): 1 What type of physical activity do you participate in: walking Duration: 15-30 minutes/day Frequency: 1-2 times per week Carole/Nondenominational: None Special carole needs: No Seatbelt use: always Drive intox or ride w/intox [id number] tank driver: No Do you feel safe in your relationship?: Yes
[2024-04-26] MEDS: Albuterol/Ipratropium 3 ML UPD VIAL (05:48)
[2024-04-26 05:50] LABS: Abs Immature Grans 0.03 10^3/uL (0.0-0.06); Absolute Basophil Count 0.03 10^3/uL (0.0-0.2); Absolute Eosinophil Count 0.04 10^3/uL (0.0-0.7); Absolute Monocyte Count 0.66 10^3/uL (0.1-0.8); Absolute Neutrophil Count 6.35 10^3/uL (1.2-6.7); Basophils % 0.4 %; Eosinophils % 0.5 %; HCT 47.4 % (40.0-50.0); Immature Grans % 0.4 %; Lymphocytes % 15.5 %; MCH 29.9 pg (27.0-33.0); MCHC 31.6 % (32.0-36.0); MCV 94 fL (80-95); MPV 9.4 fL (8.0-11.0); Monocytes % 7.8 %; Neutrophils % 75.4 %; Platelet Count 265 10^3/uL (130-400); RBC 5.02 10^6/uL (4.36-5.78); RDW-SD 44.5 fL; WBC 8.41 10^3/uL (4.4-10.8)
[2024-04-26 05:55] LABS: BE (Venous) -3 mmol/L (-2-3); HCO3 (Venous) 24 mmol/L (23-28); O2 Sat (Venous) 99 %; TCO2 (Venous) 22 mmol/L (24-29); pCO2 (Venous) 58 mmHg (41-51); pH (Venous) 7.23 (7.31-7.41); pO2 (Venous) 118 mmHg
[2024-04-26 06:09] LABS: ALT 80 U/L (16-63); AST 81 U/L (15-37); Albumin 3.9 g/dL (3.4-5.0); Alkaline Phosphatase 106 U/L (46-116); Anion Gap 8.7 mmol/L (3-11); BUN 12 mg/dL (7-18); Bilirubin, Total 0.61 mg/dL (0.2-1.0); CO2 28.3 mmol/L (21.0-32.0); CREATININE 1.1 mg/dL (0.70-1.30); Calcium 8.2 mg/dL (8.5-10.1); Chloride 106 mmol/L (98-107); Glucose 213 mg/dL (74-106); Magnesium 1.7 mg/dL (1.8-2.4); Potassium 4.4 mmol/L (3.5-5.1); Sodium 143 mmol/L (136-145); Total Protein 7.5 g/dL (6.4-8.2)
[2024-04-26 06:11] LABS: Troponin I 341 ng/L (<or=76)
--- NOTE | 2024-04-26 06:11 | DI.VRAD_ITS ---
PROCEDURE INFORMATION: Exam: XR Chest Exam date and time: 04/26/2024 5:58 AM Age: 58 years old Clinical indication: Shortness of breath; Patient HX: SOB TECHNIQUE: Imaging protocol: Radiologic exam of the chest. Views: 1 view. COMPARISON: No relevant prior studies are available for comparison. FINDINGS: Lungs: Hyperinflated lungs. Streaky bibasilar opacities. Pleural spaces: Blunting of the costophrenic angles bilaterally. Heart/Mediastinum: No cardiomegaly. Bones/joints: No acute abnormality. IMPRESSION: 1. Hyperinflated lungs. Correlate clinically for obstructive pulmonary disease. 2. Streaky bibasilar opacities, likely atelectasis or scarring. 3. Blunting of the costophrenic angles bilaterally, may be related to hyperinflated lungs. Cannot exclude small pleural effusions. Dictated and Authenticated by: Criselda Potts MD. Ordering:ISAI Mehta MD
[2024-04-26] MEDS: Etomidate 20 MG/10 ML VIAL (06:25)
[2024-04-26] MEDS: PROPOFOL 1,000 MG/100 ML BTL 14.4 MG IV (06:35)
--- NOTE | 2024-04-26 06:45 | DI.RAD_ITS ---
Exam(s) XR PORTABLE CHEST AP POST LINE EXAM: XR PORTABLE CHEST AP POST LINE CLINICAL HISTORY: intubated. TECHNIQUE: 2D digital imaging was performed. COMPARISON: CR,XR XR PORTABLE CHEST AP from 04/26/2024 FINDINGS: Single AP portable view. Patient is now intubated. Distal tip the endotracheal tube is in satisfactory position above the car [place]. There is also an NG tube in place with its distal tip beyond the field of view probably in the stomach. Heart size normal. Mediastinum is not widened. Lungs are clear. No infiltrates nor obvious pleural effusions. The increased markings seen in the right lung base the x-ray earlier same date are less evident on th is post intubation image. The possible small pleural effusions are less evident as this is a portable more supine image. IMPRESSION: ET tube in satisfactory position. No acute pulmonary findings. COPD. DATA REPOSITORY: RADIATION DOSE DELIVERED:
--- NOTE | 2024-04-26 07:00 | DI.VRAD_ITS ---
PROCEDURE INFORMATION: Exam: XR Chest Exam date and time: 04/26/2024 6:54 AM Age: 58 years old Clinical indication: Device placement; Other: Post intubation and ng; Patient HX: Intubated TECHNIQUE: Imaging protocol: Radiologic exam of the chest. Views: 1 view. COMPARISON: CR XR PORTABLE CHEST AP 04/26/2024 5:58 AM FINDINGS: Limitations: Left costophrenic angle and lung apices not imaged. Tubes, catheters and devices: Endotracheal tube terminates approximately 4.5 cm above the melani. Nasogastric tube extends below the diaphragm. Distal tip not imaged. Lungs: Hyperinflated lungs. Pleural spaces: No large pleural effusion seen. Heart/Mediastinum: No cardiomegaly. Bones/joints: No acute abnormality. IMPRESSION: Tubes and lines as above. Dictated and Authenticated by: Criselda Potts MD. Ordering:ISAI Mehta MD
--- NOTE | 2024-04-26 07:00 | DI.CT_ITS ---
Exam(s) CT CHEST PE CTA EXAM: CT CHEST PE CTA CLINICAL HISTORY: resp failure, tachy, RLE swollen. TECHNIQUE: Imaging Protocol: CT angiography of the chest was performed using pulmonary embolus kristian col. Multi planar reconstructions were performed. CONTRAST MATERIAL: Intravenous: Omnipaque 350 Contrast volume: 100 cc COMPARISON: CT CT ABDOMEN PELVIS CTA from 11/21/[address] CHEST PE CTA from 11/21/2023 FINDINGS: CHEST: Patient is intubated. Distal tip of the endotracheal tube is above the melani. PULMONARY ARTERIES: There are no intraluminal filling defects to suggest acute pulmonary emboli. LUNGS: There are COPD emphysematous changes but no confluent infiltrates nor pleural effusions.. The re are few small bilateral nodular densities which appear unchanged from 11/21/2023 CT scan.. There is also some mild scarring in the posterior basal segment of the right lower lobe which is unchanged. MEDIASTINUM: There is no hilar nor mediastinal adenopathy. CARDIAC: Heart size is normal. No pericardial effusion.Caliber of the thoracic aorta is within danna l limits. No dissection there is no significant shift of the interventricular septum. PARTIALLY VISUALIZED UPPERMOST ABDOMEN: NG tube is in the stomach. OSSEOUS: No significant osseous lesions.No fractures. IMPRESSION: 1. No evidence of acute pulmonary emboli. No evidence of pulmonary infarction.No pleural effusions. 2. COPD emphysematous changes but no infiltrates evident. 3. Stable small bilateral pulmonary nodules without significant change compared to 11/21/2023. 4. No evidence of aortic dissection nor pericardial effusion. 5. ET tube satisfactory position. NG tube is in the stomach. Report called by myself to ER provider 04/26/2024 8:45 a.m. RADIATION DOSE DELIVERED: 100.66mGy.cm Total DLP DATA REPOSITORY: All CT scans at this facility are submitted to the National Radiology Data Registry (NRDR) Dose Index Registry (DIR) with the [employer] (A[employer]). RADIATION OPTIMIZATION: All CT scans at this facility use at least one of these dose optimization te chniques: automated exposure control; mA and/or kV adjustment per patient size (includes targeted exa ms where dose is matched to clinical indication); or iterative reconstruction.
--- NOTE | 2024-04-26 07:38 | NUR.NOTE ---
Pt initially started on BiPAP, PAP 16 EPAP 8 RR18 FIO2 50 with a Continuous Albuterol Neb, Pt appeared to be responding well but suddenly became much worse, gasping and pulling off mask, unable to sit, pt unable to respond appropriately with major increased work of breathing, pt appeared to be getting very tired and appeared that he was going to further decline rapidly, decision was made by provider to intubate, pt was RSI'd and intubated and placed on a vent, PT measured to be 69 60 kg and vent settings were initially 430 TV 5 PEEP and 100 FIO2, pt is now stable, pt care turned over to CT RN without incident, SHEA
[2024-04-26 07:42] LABS: Troponin I 397 ng/L (<or=76)
[2024-04-26 07:46] LABS: COVID-19 PCR Negative (Negative); Influenza A PCR Negative (Negative); Influenza B PCR Negative (Negative); RSV PCR Negative (Negative); Source Nasopharynx
[2024-04-26] MEDS: Propofol 200 MG/20 ML VIAL 20 MG IVP ×4 (07:47→08:28)
--- NOTE | 2024-04-26 07:58 | W.PM.HP.N ---
Date of service: 04/26/24 Time of Service: 07:58 Assessment and Plan Assessment and plan (1) COPD with acute exacerbation: Status: Acute Assessment and plan: - Patient presented with known history of COPD, 2 to 3 days of shortness of breath without recent fever or change in sputum -Patient was trialed on BiPAP therapy in the emergency department but failed and was ultimately endotracheally intubated -Currently on propofol call for sedation, and fentanyl for discomfort, will continue -Appreciate respiratory therapy and management of ventilator settings -Given patient's rapid failure of BiPAP therapy in the emergency department, will recommend patient remain intubated for at least 24 hours for 4 spontaneous breathing trial -IV PPI, as needed IV Ativan -Will continue IV steroids while intubated -Every 4 hours scheduled nebulizers while intubated (2) Acute respiratory failure: Status: Acute Assessment and plan: - Secondary to COPD exacerbation as noted above (3) Elevated troponin: Status: Acute Assessment and plan: - Presumed secondary to respiratory failure as noted above -Initial troponin 341, repeat 397 which is consistent with somewhat flat troponin in the setting of severe respiratory distress -Additionally, EKG without acute findings with patient without complaints of chest pain -However, patient currently also receiving CTA chest to rule out pulmonary embolus (4) PAD (peripheral artery disease): (5) Hypertension: Assessment and plan: - Holding home antihypertensives at this time, patient's blood pressures in the low 100s systolic (6) GERD (gastroesophageal reflux disease): Assessment and plan: - Switch to IV PPI while intubated as noted above History of Present Illness History of Present Illness Chief Complaint: shortness of breath Narrative: 58-year-old male with past medical history of COPD, hyperlipidemia, anxiety presenting the emergency department via EMS for 2 to 3 days of shortness of breath. Patient was unable to give detailed history however, according to EMS and people at the home when he was being picked up he apparently had been complaining of shortness of breath over the last 2 to 3 days. It is unknown whether he had a fever, though he is able to shake send no when asked if he has had any pain. In the emergency department the patient was noted as being in significant respiratory distress with tripoding. He was given Ativan and BiPAP therapy was attempted. Initially appeared that the patient was improving. However, his respiratory status worsened and decision was made for patient to be endotracheally intubated and placed on a ventilator. Patient was also noted as being significantly tachycardic with heart rate in the 150s and improved now down to the 130s after being intubated, is normotensive blood pressures now in the 110's systolic, afebrile with a temperature of 95.2 ?F. CBC was unremarkable as well as CMP, however patient's initial troponin was 341 and repeat was 397. Patient was able to shake his head no when asked if he was experiencing any chest pain, and EKG was without any ST elevations, ST depressions or T wave inversions to suggest ND. Additionally, patient was also experiencing lower extremity edema worse on the right than the left there is a concern for potential PE for which the patient is currently receiving CT a chest PE. Which time emergency room physician paged hospitalist for admission for patient with severe COPD exacerbation currently intubated and on mechanical ventilation. Review of Systems All systems reviewed & are unremarkable except as noted in HPI and below PFSH All Active Problems (Updated 04/26/24 @ 08:15 by Tyson Kimble MD) Demand ischemia (Acute) Elevated troponin (Acute) COPD with acute exacerbation (Acute) Acute respiratory failure (Acute) Homeless (Acute) Bilateral tinnitus (Acute) Nicotine dependence, cigarettes, uncomplicated (Acute) Iliac artery occlusion, left (Acute) Screening for malignant neoplasm of colon declined (Acute) Low back pain (Chronic 07/11/20) MRI at [facility]- mild spondylotic changes w/ no significant stenosis. A left foraminal region posterior annular fissure is present at L4-5 intervertebral disc w/ no herniation Fibromyalgia (Acute ~06/19/18) [facility] rheumatology visit in 2019 Chronic abdominal pain (Acute) CT at [facility] 08/14/20 incidential occlusion of the left common iliac artery since previous study in 05/18/19 Otherwise no acute process identified. Unspecified dental caries (Acute) and gum disease Tubular adenoma (Acute 05/22/16) Depression (Acute) Anxiety (Acute) Medical History COPD (chronic obstructive pulmonary disease) Asthma NSTEMI (non-ST elevated myocardial infarction) (10/21/22) Hypertension PAD (peripheral artery disease) Per [facility] vascular Dr. Tori Diaz. ABIs demonstrate: Right mild, left moderate/severe GERD (gastroesophageal reflux disease) Surgical History History of open reduction and internal fixation (ORIF) procedure Hx of appendectomy Colonoscopy - IV Sedation (05/22/16) with polypectomy by forceps Family History Mother Heart disease Asthma Depression Father Personal history of malignant neoplasm LUNG Stroke Hyperlipidemia Social History Smoking/Tobacco Use Status: Current every day Tobacco Type: cigarettes Tobacco: How many years used: 30 Second Hand Exposure: Yes Smoking risk assessment performed?: Yes Alcohol Intake: never Drug use: Socially Substance use type: marijuana Caregiver/Support person: Yes Household members: none Housing: homeless Communication Needs: None Do you need help understanding health information?: Often Pets and animals: No Sexually active: No Do you think of yourself as: straight/heterosexual Current gender identity: male What is your relationship status?: never How often do you talk on the phone with friends or family?: three or more times per week How often do you get together with friends or relatives?: decline to answer Do you belong to any clubs or organized social groups?: no Panel score (0-1 are the most socially isolated patients): 1 What type of physical activity do you participate in: walking Duration: 15-30 minutes/day Frequency: 1-2 times per week Carole/Gnosticism: None Special carole needs: No Seatbelt use: always Drive intox or ride w/intox compressed air pile driver operator: No Do you feel safe in your relationship?: Yes Meds Allergies and Home Medications Allergies Allergy/AdvReac Type Severity Reaction Status Date / Time No Known Allergies Allergy Unverified 03/09/24 13:26 Home Medications ?Medication ?Instructions ?Recorded ?Confirmed ?Type albuterol sulfate 90 mcg/actuation 2 puff inhalation Q6H PRN ##3 11/28/23 03/09/24 Rx aerosol inhaler aspirin 81 mg tablet,delayed 81 mg PO DAILY #90 tabs 11/28/23 03/09/24 Rx release (Adult Aspirin Regimen) atorvastatin 20 mg tablet 20 mg PO DAILY #90 tabs 11/28/23 03/09/24 Rx cilostazol 100 mg tablet 100 mg PO BID #180 tabs 11/28/23 03/09/24 Rx losartan 25 mg tablet 25 mg PO DAILY #90 tabs 11/28/23 03/09/24 Rx ipratropium 0.5 mg-albuterol 3 mg 3 ml inhalation QID PRN wheezing 12/02/23 03/09/24 Rx (2.5 mg base)/3 mL nebulization #180 mL soln tiotropium bromide 2.5 2 puff inhalation DAILY #4 grams 12/10/23 03/09/24 Rx mcg/actuation mist for inhalation (Spiriva Respimat) budesonide-formoterol HFA 160 2 puff inhalation Q12H #20.4 grams 12/16/23 03/09/24 Rx mcg-4.5 mcg/actuation aerosol inhaler (Symbicort) pregabalin 25 mg capsule (Lyrica) 25 mg PO BID #180 caps 02/10/24 03/09/24 Rx albuterol 90 mcg-budesonide 80 2 inh inhalation ONCE #10.7 grams 03/10/24 03/10/24 Rx mcg/actuation HFA aerosol inhaler (Airsupra) Exam Narrative Exam Narrative: Intubated and sedated gentleman laying in bed in no acute distress, heart tachycardic, regular, rate in the 120s, lungs mechanical breath sounds heard throughout, abdomen soft, nontender, nondistended Results Labs 04/26/24 05:38 04/26/24 05:38 Labs: Laboratory Results - last 24 hr 04/26/24 04/26/24 04/26/24 05:38 05:51 07:02 WBC 8.41 RBC 5.02 Hgb 15.0 Hct 47.4 MCV 94 MCH 29.9 MCHC 31.6 L RDW 13.0 Plt Count 265 MPV 9.4 Immature Gran % 0.4 Neutrophils % 75.4 Lymphocytes % 15.5 Monocytes % 7.8 Eosinophils % 0.5 Basophils % 0.4 Nucleated RBC % 0.0 Absolute Neutrophils 6.35 Absolute Lymphocytes 1.30 Absolute Monocytes 0.66 Absolute Eosinophils 0.04 Absolute Basophils 0.03 VBG pH 7.23 L VBG pCO2 58 H VBG pO2 118 VBG HCO3 24 VBG Total CO2 22 L VBG O2 Saturation 99 VBG Base Excess -3 L Sodium 143 Potassium 4.4 Chloride 106 Carbon Dioxide 28.3 Anion Gap 8.7 BUN 12 Creatinine 1.1 Est GFR (CKD-EPI 2020) 78.30 Glucose 213 H Calcium 8.2 L Magnesium 1.7 L Total Bilirubin 0.61 AST 81 H ALT 80 H Alkaline Phosphatase 106 Troponin I 341 H* 397 H* Total Protein 7.5 Albumin 3.9 COVID-19 Source Nasopharynx SARS-CoV-2 (PCR) Negative Influenza Type A (PCR) Negative Influenza Type B (PCR) Negative RSV (PCR) Negative Last Vital Signs Temp 95.2 F L 04/26/24 05:24 Pulse 133 H 04/26/24 07:31 Resp 16 04/26/24 07:47 BP 107/73 04/26/24 07:31 Pulse Ox 99 04/26/24 07:47 Time Spent Time spent with Patient: >75 minutes Time was spent: preparing to see the patient(eg.review tests), obtaining and/or reviewing separately otained hiistory, ordering medications,tests, procedures, referring, communicating with other health med care manager, indepentently interpreting results, counseling the patient and care coordination
[2024-04-26] MEDS: Normal Saline - Diluent 50 ML VIAL IJ (08:14)
[2024-04-26] MEDS: Omnipaque 350 MG/ML 100 ML BTL 60 ML IJ (08:15)
[2024-04-26] MEDS: Normal Saline Flush 10 ML SYR IVP ×4 (08:46→21:25)
--- NOTE | 2024-04-26 09:52 | INITIAL_ITS ---
Date of service: 04/26/24 Time of Service: 09:52 Care Management Initial Assmt Initial Assessment Reason for Hospitalization: COPD with acute exacerbation Functional Status/Living Situation Patient Presentation: Stephon presented with known history of COPD, 2 to 3 days of shortness of breath without recent fever or change in sputum-Patient was trialed on BiPAP therapy in the emergency department but failed and was ultimately endotracheally intubated. He is currently on propofol for sedation. Stephon was intubated and sedated when CM went to see him today. He appeared comfortable. Town of Residence: per reports, Stephon is homeless Significant Other/Family: Local (friend Cheli is listed as contact and [employer]) Natural Supports: Friend, Cheli Smith, is the only one listed as contact and on HIPAA Employment Status: Unemployed Instrumental Activities of Daily Living (ADLs): Independent Advance Directives Advance Directives: Do you have an Advance Directive: N 01/30/23 09:20 AD On File at [facility]: N 01/30/23 09:20 Date Asked 04/26/24 04/26/24 08:39 AD Date Reviewed COLST On File at [facility] COLST Date Scanned Code Status Resuscitation Status Full Code Insurance Coverage/Financial Issues Insurance: [place] Medicaid Care Team Visit Care Team Role Provider Type Celeste Rodrigues NP Primary Care Provider NURSE PRACTITIONER Tyson Kimble MD Emergency Provider [facility] STAFF PHYSICIAN Chris Licona MD Admit Provider [facility] STAFF PHYSICIAN Attending Provider Other: Wally sees a long list of specialist including gastroenterology, neurology, rheumatology, vascular and pulmonology Discharge Potential Discharge Needs: PCP F/U Appt (PCP appt scheduled for 05/11, Pulmonolgy on 06/09, neuro on 07/22) and Other Anticipated Barriers to Discharge: None Identified Patient/Family Education Needs: Review discharge instructions, discuss Ask Me Three Plan: Wally is quite sick and his discharge plan has not been formulated as of yet. He has some scheduled appointments, as noted in his discharge needs. CM will continue to follow and work on Wally's discharge plan. Social Determinants of Health Screening Will the Patient Participate in the Screening?: Unable to obtain PFSH All Active Problems (Updated 04/26/24 @ 08:15 by Tyson Kimble MD) Demand ischemia (Acute) Elevated troponin (Acute) COPD with acute exacerbation (Acute) Acute respiratory failure (Acute) Homeless (Acute) Bilateral tinnitus (Acute) Nicotine dependence, cigarettes, uncomplicated (Acute) Iliac artery occlusion, left (Acute) Screening for malignant neoplasm of colon declined (Acute) Low back pain (Chronic 07/11/20) MRI at [place]- mild spondylotic changes w/ no significant stenosis. A left foraminal region posterior annular fissure is present at L4-5 intervertebral disc w/ no herniation Fibromyalgia (Acute ~06/19/18) [facility] rheumatology visit in 2019 Chronic abdominal pain (Acute) CT at [place] 08/14/20 incidential occlusion of the left common iliac artery since previous study in 05/18/19 Otherwise no acute process identified. Unspecified dental caries (Acute) and gum disease Tubular adenoma (Acute 05/22/16) Depression (Acute) Anxiety (Acute) Medical History COPD (chronic obstructive pulmonary disease) Asthma NSTEMI (non-ST elevated myocardial infarction) (10/21/22) Hypertension PAD (peripheral artery disease) Per [facility] vascular Dr. Tori Diaz. ABIs demonstrate: Right mild, left moderate/severe GERD (gastroesophageal reflux disease) Surgical History History of open reduction and internal fixation (ORIF) procedure Hx of appendectomy Colonoscopy - IV Sedation (05/22/16) with polypectomy by forceps Family History Mother Heart disease Asthma Depression Father Personal history of malignant neoplasm LUNG Stroke Hyperlipidemia Social History Smoking/Tobacco Use Status: Current every day Tobacco Type: cigarettes Tobacco: How many years used: 30 Second Hand Exposure: Yes Smoking risk assessment performed?: Yes Alcohol Intake: never Drug use: Socially Substance use type: marijuana Caregiver/Support person: Yes Household members: none Housing: homeless Communication Needs: None Do you need help understanding health information?: Often Pets and animals: No Sexually active: No Do you think of yourself as: straight/heterosexual Current gender identity: male What is your relationship status?: never How often do you talk on the phone with friends or family?: three or more times per week How often do you get together with friends or relatives?: decline to answer Do you belong to any clubs or organized social groups?: no Panel score (0-1 are the most socially isolated patients): 1 What type of physical activity do you participate in: walking Duration: 15-30 minutes/day Frequency: 1-2 times per week Carole/Moravian: None Special carole needs: No Seatbelt use: always Drive intox or ride w/intox superintendent drivers: No Do you feel safe in your relationship?: Yes Readmission Within the Past 30 Days Yes or No: No
[2024-04-26] MEDS: PROPOFOL 1,000 MG/100 ML BTL 18 MG IV (10:27)
[2024-04-26] MEDS: Pantoprazole 40 MG VIAL IVP (10:35)
[2024-04-26] MEDS: Enoxaparin 40 MG/0.4 ML SYR SC (10:36)
[2024-04-26] MEDS: fentaNYL 1,000 MCG in Normal Saline 80 ML 3 MCG IV_INF (11:53)
[2024-04-26 11:55] LABS: BE (Venous) -1 mmol/L (-2-3); HCO3 (Venous) 24 mmol/L (23-28); O2 Sat (Venous) 94 %; TCO2 (Venous) 22 mmol/L (24-29); pCO2 (Venous) 42 mmHg (41-51); pH (Venous) 7.37 (7.31-7.41); pO2 (Venous) 65 mmHg
[2024-04-26] MEDS: Albuterol/Ipratropium 3 ML UPD VIAL UPD ×3 (13:01→19:30)
[2024-04-26] MEDS: Budesonide/Formoterol 80/4.5 6.9 GM 60 PUFF INH IH (13:06)
[2024-04-26] MEDS: methylPREDNISolone SUCC 125 MG VIAL IVP ×2 (14:13→21:25)
[2024-04-26] MEDS: dexmedeTOMidine IN 0.9 % NACL 400 MCG/100 ML BTL IV ×2 (14:45→14:54)
--- NOTE | 2024-04-26 17:30 | RESPIRATORY ---
04/26/2024 Approx 0930 pt suctioned in-line for a small/mod amount of thick yellow secretions. Pt oral suctioned for clear thick secretions. Breath sounds cleared post sxn
[2024-04-26] MEDS: PROPOFOL 1,000 MG/100 ML BTL 3.6 MG IV (19:46)
[2024-04-26] MEDS: dexmedeTOMidine IN 0.9 % NACL 400 MCG/100 ML BTL 14.825 MCG IV (20:37)
[2024-04-26] MEDS: Normal Saline 1,000 ML 75 ML IV (22:47)
[2024-04-26 22:58] LABS: Bilirubin Small (Negative); Blood Large (Negative); Clarity Clear (Clear); Glucose Negative (Negative); Ketones Negative (Negative); Leukocyte Esterase Negative (Negative); Nitrite Negative (Negative); Specific Gravity >= 1.030 (1.005-1.025); Urobilinogen 0.2 mg/dL (Up to 0.2)
[2024-04-26 23:09] LABS: Bacteria Rare HPF (Negative); C & S Indicated? No; Casts 0-2 Hyaline LPF (Negative); Crystals Negative HPF (Negative); Epithelial Cells Rare HPF (Negative); Mucus Heavy (Negative); RBC >50 HPF (0-2); WBC 0-2 HPF (0-5)
[2024-04-27] VITALS (64 sets, daily range): BP systolic 84–195; BP diastolic 70–114; PULSE 85–126; RESP 5–26; TEMP 36.4–36.9; O2SAT 88–98
[2024-04-27] MEDS: Albuterol/Ipratropium 3 ML UPD VIAL UPD ×6 (02:30→20:05)
[2024-04-27] MEDS: dexmedeTOMidine IN 0.9 % NACL 400 MCG/100 ML BTL 14.825 MCG IV (03:30)
[2024-04-27] MEDS: PROPOFOL 1,000 MG/100 ML BTL 10.8 MG IV (05:13)
[2024-04-27] MEDS: Normal Saline Flush 10 ML SYR IVP ×4 (05:14→21:27)
[2024-04-27] MEDS: methylPREDNISolone SUCC 125 MG VIAL IVP ×2 (05:14→14:23)
[2024-04-27 05:41] LABS: BE 2 mmol/L (-2-3); HCO3 27 mmol/L (22-26); pCO2 50 mmHg (35-45); pH 7.34 (7.35-7.45); pO2 85 mmHg (80-105); sO2 97 % (95-98); tCO2 25 mmol/L (23-27)
[2024-04-27 05:43] LABS: FIO2 30 %; Site Left Radial
[2024-04-27 05:49] LABS: HCT 42.7 % (40.0-50.0); HGB 13.4 g/dL (13.5-17.5); MCH 29.6 pg (27.0-33.0); MCHC 31.4 % (32.0-36.0); MCV 94 fL (80-95); MPV 10.2 fL (8.0-11.0); Platelet Count 186 10^3/uL (130-400); RBC 4.53 10^6/uL (4.36-5.78); RDW-SD 45.1 fL; WBC 9.19 10^3/uL (4.4-10.8)
[2024-04-27 06:00] LABS: Anion Gap 3.3 mmol/L (3-11); BUN 20 mg/dL (7-18); CO2 30.7 mmol/L (21.0-32.0); CREATININE 0.9 mg/dL (0.70-1.30); Calcium 8.5 mg/dL (8.5-10.1); Chloride 107 mmol/L (98-107); Estimated GFR 99.62 (mL/min/1.73m2); Glucose 154 mg/dL (74-106); Potassium 4.8 mmol/L (3.5-5.1); Sodium 141 mmol/L (136-145)
[2024-04-27] MEDS: Enoxaparin 40 MG/0.4 ML SYR SC (07:55)
[2024-04-27] MEDS: Budesonide/Formoterol 80/4.5 6.9 GM 60 PUFF INH IH ×2 (08:00→20:13)
[2024-04-27] MEDS: Albuterol 2.5 MG/3 ML INH SOLN VIAL UPD (08:15)
--- NOTE | 2024-04-27 08:48 | PDOC.CMPRO ---
Date of service: 04/27/24 Time of Service: 08:48 Care Management Progress Note Progress Note Text Progress Note Text: Wally continues to requires ICU level care for respiratory failure secondary to COPD exacerbation, he was extubated a few hours ago and is being closely monitored for SOB. He is currently lying in bed with the HOB elevated, he is being medicated with lorazepam for anxiety and appears comfortable therefor CM did not wake him. Wally has an upcoming appt with his PCP on 05/11 and is scheduled to see Pulmonolgy on 06/09/24 and Neurology on 07/22/24. CM will meet with patient when he is less sedated. [facility] referral will be offered, when medically stable per report of homelessness. Discharge Potential Discharge Needs: PCP F/U Appt ( PCP appt scheduled for 05/11, Pulmonolgy on 06/09, neuro on 07/22) Anticipated Barriers to Discharge: Medical Status Patient/Family Education Needs: Review discharge instructions, discuss Ask Me Three Plan: Wally was extubated this morning and appeared to be resting comfortably when CM attempted to meet with him; he is currently medicated with Lorazepam for SOB and anxiety. CM will meet with him at a later time. Of note, housing related needs have been identified, community resources will be provided. Discharge plan of care to follow. Social Determinants of Health Screening Will the Patient Participate in the Screening?: Unable to obtain
[2024-04-27] MEDS: Pantoprazole 40 MG VIAL IVP (09:17)
[2024-04-27] MEDS: Normal Saline 10 ML VIAL IJ (09:17)
[2024-04-27] MEDS: Normal Saline 1,000 ML 75 ML IV ×2 (09:18→22:39)
[2024-04-27 09:23] LABS: Magnesium 2.4 mg/dL (1.8-2.4)
[2024-04-27 09:26] LABS: Troponin I 125 ng/L (<or=76)
[2024-04-27] MEDS: LORazepam 2 MG/ML VIAL 1 MG IVP (10:30)
[2024-04-27 11:09] LABS: BE (Venous) 1 mmol/L (-2-3); HCO3 (Venous) 27 mmol/L (23-28); O2 Sat (Venous) 94 %; TCO2 (Venous) 25 mmol/L (24-29); pCO2 (Venous) 53 mmHg (41-51); pH (Venous) 7.32 (7.31-7.41); pO2 (Venous) 71 mmHg
--- NOTE | 2024-04-27 12:03 | W.NUTRFU ---
Date of service: 04/27/24 Time of Service: 12:03 Nutrition Note NOTE: 58yo male intubated and npo for ~36hours at this time. Pt weight with stable recent history and current BMI wnl, although homelessness situation would certainly pose a great challenge to consistently meet nutrition need. Albumin and total protein labs wnl yesterday estimated energy needs: 1878kcals (30kcals/kg) , 75g protein (1.2g/kg), 1878ml fluid (1ml / required kcal) propofol rate of 10.8ml/hour results in 284calories per 24 hours from lipid solution. Unure if this rate with lipids alone poses risk for hypertriglyceridemia. Per ASPEN guidelines would suggest initiation of enteral feeding withing 24-48 hours of ventilation/admission to ICU to further protect against the catabolic nature of his respiratory distress/exacerbation. REcommendations- -initiate enteral feedings if care plan includes continued ventilation beyond this evening. -triglyceride lab Will monitor weight, po advancement, and interview to better assess nutritional status. Time Spent in Nutritional Counseling and Treatment: 0
--- NOTE | 2024-04-27 14:32 | W.PM.PROGNOT ---
Date of Service Date of service: 04/27/24 Time of Service: 14:32 Assessment and Plan Assessment and plan (1) Acute respiratory failure: Status: Acute Assessment and plan: - Secondary to COPD - Patient was trialed on BiPAP therapy in the emergency department, then endotracheally intubated -Successful sedation trial, extubated 04/27 AM. Oxygenation adequate even on room air, but in some respiratory distress still and CO2 elevated. =Repeat VBG pending, if no stable/improving, will trial back on BiPAP. -Continue lorazepam prn anxiety, can also try morphine to help with SOB, hopefully will allow him to tolerate BiPAP so he won't need to be reintubated. (2) COPD with acute exacerbation: Status: Acute Assessment and plan: - Patient presented with known history of COPD, 2 to 3 days of shortness of breath prior to admission, see above. - Continue IV steroids until stable taking PO. Continue nebs and restart outpatient inhalers. - smoking cessation (3) Elevated troponin: Status: Acute Assessment and plan: -Presumed secondary to respiratory failure as noted above -Initial troponin 341, repeat 397, down to 125 this morning, admission EKG reassuring, all c/w strain from acute respiratory illness. -CTA chest negative 04/26 for pulmonary embolus (4) PAD (peripheral artery disease): Assessment and plan: Resume oupatient antiplatelet agents and statin. (5) Hypertension: Assessment and plan: - resume losartan when taking po (6) GERD (gastroesophageal reflux disease): Assessment and plan: - Switched to IV PPI while intubated as noted above, oral tomorrow if he remains off ventilator (7) DVT prophylaxis: Status: Acute Assessment and plan: LMWH Subjective Subjective Patient reports: denies nausea, vomiting or fever Interval history since last seen: events: extubated this morning Denies pain, including chest pain, just feels SOB. Doesn't feel like he can lay down, feels anxious. Ativan did help after extubation. Feels a little lightheaded sitting up after extubation. He remembers taking medication for cholesterol and circulation, but wasn't taking them every day. Exam Narrative Exam Narrative: Sitting up in bed staring forward, slow to respond but then responds appropriately. heart regular in 90s, no murmur. Lungs diffusely diminished but no focal rales or wheezes. Abdomen soft, nontender, nondistended. Ext trace sierra edema ankles, feel with shiney hairless skin, thick nails, but warm, no cyanosis. Objective Last Vital Signs Temp 36.9 C 04/27/24 08:30 Pulse 92 H 04/27/24 14:12 Resp 15 04/27/24 14:12 BP 127/82 04/27/24 12:01 Pulse Ox 96 04/27/24 14:00 Laboratory Results - last 24 hr 04/26/24 04/27/24 04/27/24 22:20 05:30 08:54 WBC 9.19 RBC 4.53 Hgb 13.4 L Hct 42.7 MCV 94 MCH 29.6 MCHC 31.4 L RDW 13.0 Plt Count 186 MPV 10.2 ABG Sample Site Left Radial ABG pH 7.34 L ABG pCO2 50 H ABG pO2 85 ABG HCO3 27 H ABG Total CO2 25 ABG O2 Saturation 97 ABG Base Excess 2 VBG pH VBG pCO2 VBG pO2 VBG HCO3 VBG Total CO2 VBG O2 Saturation VBG Base Excess FiO2 30 Sodium 141 Potassium 4.8 Chloride 107 Carbon Dioxide 30.7 Anion Gap 3.3 BUN 20 H Creatinine 0.9 Est GFR (CKD-EPI 2020) 99.62 Glucose 154 H Calcium 8.5 Magnesium 2.4 Troponin I 125 H* Urine Color Yellow Urine Clarity Clear Urine pH 6.0 Ur Specific [place] >= 1.030 H Urine Protein 100 H Urine Ketones Negative Urine Blood Large H Urine Nitrite Negative Urine Bilirubin Small H Urine Urobilinogen 0.2 Ur Leukocyte Esterase Negative Urine RBC >50 H Urine WBC 0-2 Ur Epithelial Cells Rare Urine Crystals Negative Urine Bacteria Rare Urine Casts 0-2 Hyaline Urine Mucus Heavy Ur Culture Indicated? No Urine Glucose Negative 04/27/24 11:02 WBC RBC Hgb Hct MCV MCH MCHC RDW Plt Count MPV ABG Sample Site ABG pH ABG pCO2 ABG pO2 ABG HCO3 ABG Total CO2 ABG O2 Saturation ABG Base Excess VBG pH 7.32 VBG pCO2 53 H VBG pO2 71 VBG HCO3 27 VBG Total CO2 25 VBG O2 Saturation 94 VBG Base Excess 1 FiO2 Sodium Potassium Chloride Carbon Dioxide Anion Gap BUN Creatinine Est GFR (CKD-EPI 2020) Glucose Calcium Magnesium Troponin I Urine Color Urine Clarity Urine pH Ur Specific [place] Urine Protein Urine Ketones Urine Blood Urine Nitrite Urine Bilirubin Urine Urobilinogen Ur Leukocyte Esterase Urine RBC Urine WBC Ur Epithelial Cells Urine Crystals Urine Bacteria Urine Casts Urine Mucus Ur Culture Indicated? Urine Glucose Time Spent with Patient Time Spent with Patient: >50 minutes Time was spent: preparing to see the patient(eg.review tests), obtaining and/or reviewing separately otained hiistory, ordering medications,tests, procedures, referring, communicating with other health direct support professional caregiver, indepentently interpreting results, counseling the patient and care coordination
[2024-04-27] MEDS: LORazepam 2 MG/ML VIAL 0.5 MG IVP ×2 (14:46→18:06)
[2024-04-27 15:04] LABS: BE (Venous) 3 mmol/L (-2-3); HCO3 (Venous) 28 mmol/L (23-28); O2 Sat (Venous) 89 %; TCO2 (Venous) 25 mmol/L (24-29); pCO2 (Venous) 52 mmHg (41-51); pH (Venous) 7.35 (7.31-7.41); pO2 (Venous) 56 mmHg
[2024-04-27] MEDS: MORPHine 2 MG/ML SYR IVP (18:23)
[2024-04-27] MEDS: Ondansetron 4 MG/2 ML VIAL IVP (18:33)
[2024-04-27] MEDS: methylPREDNISolone SUCC 125 MG VIAL 80 MG IVP (21:27)
[2024-04-27] MEDS: Pregabalin 25 MG CAP PO (21:28)
[2024-04-27] MEDS: Cilostazol 100 MG TAB PO (21:28)
[2024-04-27 22:04] LABS: BE (Venous) 5 mmol/L (-2-3); HCO3 (Venous) 29 mmol/L (23-28); O2 Sat (Venous) 96 %; TCO2 (Venous) 26 mmol/L (24-29); pCO2 (Venous) 44 mmHg (41-51); pH (Venous) 7.44 (7.31-7.41); pO2 (Venous) 71 mmHg
[2024-04-27] MEDS: Levalbuterol 1.25 MG/3 ML UPD VIAL UPD (22:05)
[2024-04-28] VITALS (63 sets, daily range): BP systolic 121–187; BP diastolic 85–114; PULSE 72–130; RESP 4–30; TEMP 31–37.8; O2SAT 85–100
--- NOTE | 2024-04-28 | DI.CT_ITS ---
Exam(s) CT CHEST PE CTA EXAM: CT CHEST PE CTA CLINICAL HISTORY: respiratory failure, right heart strain on POCUS. TECHNIQUE: Imaging Protocol: Axial CT angiography was performed with multi-slice acquisition and mu lti-planar reconstructions as well as axial, coronal and sagittal MIP reconstructions. Computer aided detection (CAD) was utilized. CONTRAST MATERIAL: Intravenous: Omnipaque 350 Contrast volume:60 ml COMPARISON: CT CT ABDOMEN PELVIS CTA from 11/21/[address] CHEST PE CTA from 04/26/2024 FINDINGS: Exam is limited due to streak artifact from patient arm positioning as well as mild patient motion.. Pulmonary Arteries: No evidence of filling defect to suggest pulmonary emboli. Mediastinum and Alison: No dominant adenopathy or fluid collection. Pulmonary parenchyma: Emphysematous changes. Patchy infiltrates are noted at both lung bases, right greater than left. Other patchy infiltrates also seen in the superior segment of the right lower lob e and posterior right upper lobe. No dominant measurable mass. Trachea and bronchi: Patient no longer intubated. Mild bronchiectasis. Pleura: No effusion or pneumothorax. Heart: The heart is not dilated. Mild coronary artery calcifications are seen. Aorta: Thoracic aorta non-dilated. No dissection. Abdominal aorta is mildly dilated . Significan t intramural thrombus. This is only partially included on the exam. Similar to prior. Upper abdomen: Gastric distension. Bones: Unremarkable for age. Tubes, Catheters, and Lines: Patient no longer intubated. A nasogastric tube has been removed. Soft tissues: Unremarkable. IMPRESSION: No evidence of pulmonary embolism. Multifocal patchy infiltrates, greatest in the right lower lobe. RADIATION DOSE DELIVERED: Total DLP DATA REPOSITORY: All CT scans at this facility are submitted to the National Radiology Data Registry (NRDR) Dose Index Registry (DIR) with the [employer] (A[employer]). RADIATION OPTIMIZATION: All CT scans at this facility use at least one of these dose optimization te chniques: automated exposure control; mA and/or kV adjustment per patient size (includes targeted exa ms where dose is matched to clinical indication); or iterative reconstruction.
[2024-04-28] MEDS: Albuterol/Ipratropium 3 ML UPD VIAL UPD ×4 (02:10→20:25)
[2024-04-28] MEDS: methylPREDNISolone SUCC 125 MG VIAL 80 MG IVP ×3 (05:23→21:17)
[2024-04-28 06:58] LABS: ALT 55 U/L (16-63); AST 43 U/L (15-37); Albumin 2.9 g/dL (3.4-5.0); Alkaline Phosphatase 69 U/L (46-116); Anion Gap 2.2 mmol/L (3-11); BUN 20 mg/dL (7-18); Bilirubin, Total 0.32 mg/dL (0.2-1.0); CO2 36.8 mmol/L (21.0-32.0); CREATININE 0.7 mg/dL (0.70-1.30); Calcium 8.6 mg/dL (8.5-10.1); Chloride 107 mmol/L (98-107); Estimated GFR 107.47 (mL/min/1.73m2); Glucose 115 mg/dL (74-106); Potassium 4.3 mmol/L (3.5-5.1); Sodium 146 mmol/L (136-145); Total Protein 6.3 g/dL (6.4-8.2)
[2024-04-28 08:14] LABS: BE (Venous) 8 mmol/L (-2-3); HCO3 (Venous) 34 mmol/L (23-28); O2 Sat (Venous) 84 %; TCO2 (Venous) 30 mmol/L (24-29); pCO2 (Venous) 60 mmHg (41-51); pH (Venous) 7.36 (7.31-7.41); pO2 (Venous) 49 mmHg
[2024-04-28] MEDS: LORazepam 2 MG/ML VIAL 1 MG IVP ×5 (08:21→19:00)
[2024-04-28] MEDS: Normal Saline Flush 10 ML SYR IVP ×5 (08:22→21:18)
--- NOTE | 2024-04-28 08:30 | PDOC.CMPRO ---
Date of service: 04/28/24 Time of Service: 08:30 Care Management Progress Note Progress Note Text Progress Note Text: Wally continues to require ICU level care for respiratory failure secondary to COPD exacerbation. He was extubated yesterday and has not been able to tolerate being off the Bi-Pap. He is still acutely ill and not in a position to talk to CM at this time. CM will continue to follow and access patient for discharge needs when medically stable. A [facility] referral will be offered, when medically stable per report of homelessness. Discharge Potential Discharge Needs: PCP F/U Appt and Other ( Wally has an upcoming appt with his PCP on 05/11 and is scheduled to see Pulmonolgy on 06/09/24 and Neurology on 07/22/24. ) Anticipated Barriers to Discharge: Medical Status Patient/Family Education Needs: Review discharge instructions, discuss Ask Me Three Transportation: Private vehicle Plan: Wally was extubated yesterday and has not tolerate being off the Bi-pap. He continues to require ICU level care. CM will meet with him at a later time. Of note, housing related needs have been identified, community resources will be provided. Discharge plan of care to follow. Social Determinants of Health Screening Will the Patient Participate in the Screening?: Unable to obtain
[2024-04-28] MEDS: Budesonide/Formoterol 80/4.5 6.9 GM 60 PUFF INH IH ×2 (08:39→20:29)
[2024-04-28] MEDS: Tiotropium Bromide-Respimat 10 PUFF INH 2 PUFF IH (08:39)
[2024-04-28] MEDS: Metoprolol 5 MG/5 ML VIAL 2.5 MG IVP ×2 (09:30→11:36)
[2024-04-28] MEDS: Pantoprazole 40 MG VIAL IVP (09:31)
[2024-04-28] MEDS: Ondansetron 4 MG/2 ML VIAL IVP (09:31)
[2024-04-28] MEDS: MORPHine 2 MG/ML SYR IVP ×3 (09:56→16:34)
[2024-04-28] MEDS: Enoxaparin 40 MG/0.4 ML SYR SC (10:35)
--- NOTE | 2024-04-28 10:57 | PGE_ITS ---
Date of Service Date of service: 04/28/24 Time of Service: 10:57 Assessment and Plan Assessment and plan (1) Acute respiratory failure: Status: Acute Assessment and plan: - Secondary to COPD - Patient was trialed on BiPAP therapy in the emergency department, then endotracheally intubated -Successful sedation trial, extubated 04/27 AM. Oxygenation adequate even on room air since but CO2 high when not on BiPAP, back on this morning -Continue lorazepam prn anxiety, can also try morphine to help with SOB, hopefully will allow him to continue to tolerate BiPAP. -POCUS this afternoon to assess cardiac and fluid status and for focal lung findings. (2) COPD with acute exacerbation: Status: Acute Assessment and plan: - Patient presented with known history of COPD, 2 to 3 days of shortness of breath prior to admission, see above. - Continue IV steroids until stable taking PO. Continue nebs and restart outpatient inhalers. - smoking cessation (3) Elevated troponin: Status: Acute Assessment and plan: -Presumed secondary to respiratory failure as noted above -Initial troponin 341, repeat 397, down to 125 04/27, admission EKG reassuring, all c/w strain from acute respiratory illness. -CTA chest negative 04/26 for pulmonary embolus (4) PAD (peripheral artery disease): Assessment and plan: Resume oupatient antiplatelet agents and statin when able to take po. (5) Hypertension: Assessment and plan: - BP and pulse high, not taking po. Responds to metoprolol, will continue IV for now. (6) GERD (gastroesophageal reflux disease): Assessment and plan: - Switched to IV PPI while intubated as noted above, oral when he is able. (7) DVT prophylaxis: Status: Acute Assessment and plan: LMWH Subjective Subjective Patient reports: denies diarrhea, nausea, vomiting or fever Interval history since last seen: Events: Extubated 04/27 AM, back on BiPAP in afternoon, changed to CPAP overni ght as was becoming alkalotic Still feeling quite tired and short of breath and anxious. He hasn't been able to eat or drink, didn't tolerate coming off CPAP this morning. Exam Narrative Exam Narrative: Sitting up in bed staring forward, alert and oriented, responding appropriately. heart regular in 100s, no murmur. Lungs diffusely diminished but no focal rales or wheezes. Abdomen soft, nondistended, mild LLQ tenderness to deep palpation, no guarding/rebound.. Ext trace sierra edema ankles, feel with shiney hairless skin, thick nails, but warm, no cyanosis. Objective Last Vital Signs Temp 36.6 C 04/28/24 04:13 Pulse 109 H 04/28/24 10:27 Resp 19 04/28/24 09:24 BP 165/104 H 04/28/24 10:27 Pulse Ox 91 L 04/28/24 09:24 Laboratory Results - last 24 hr 04/27/24 04/27/24 04/27/24 11:02 14:55 21:55 VBG pH 7.32 7.35 7.44 H VBG pCO2 53 H 52 H 44 VBG pO2 71 56 71 VBG HCO3 27 28 29 H VBG Total CO2 25 25 26 VBG O2 Saturation 94 89 96 VBG Base Excess 1 3 5 H Sodium Potassium Chloride Carbon Dioxide Anion Gap BUN Creatinine Est GFR (CKD-EPI 2020) Glucose Calcium Total Bilirubin AST ALT Alkaline Phosphatase Total Protein Albumin 04/28/24 04/28/24 06:10 08:10 VBG pH 7.36 VBG pCO2 60 H VBG pO2 49 VBG HCO3 34 H VBG Total CO2 30 H VBG O2 Saturation 84 VBG Base Excess 8 H Sodium 146 H Potassium 4.3 Chloride 107 Carbon Dioxide 36.8 H Anion Gap 2.2 L BUN 20 H Creatinine 0.7 Est GFR (CKD-EPI 2020) 107.47 Glucose 115 H Calcium 8.6 Total Bilirubin 0.32 AST 43 H ALT 55 Alkaline Phosphatase 69 Total Protein 6.3 L Albumin 2.9 L Time Spent with Patient Time Spent with Patient: >50 minutes Time was spent: preparing to see the patient(eg.review tests), obtaining and/or reviewing separately otained hiistory, ordering medications,tests, procedures, referring, communicating with other health careers counsellor, indepentently interpreting results, counseling the patient and care coordination
[2024-04-28] MEDS: Normal Saline 1,000 ML 75 ML IV (11:03)
[2024-04-28 13:02] LABS: BE (Venous) 8 mmol/L (-2-3); HCO3 (Venous) 33 mmol/L (23-28); O2 Sat (Venous) 96 %; TCO2 (Venous) 30 mmol/L (24-29); pCO2 (Venous) 60 mmHg (41-51); pH (Venous) 7.35 (7.31-7.41); pO2 (Venous) 75 mmHg
[2024-04-28] MEDS: Normal Saline - Diluent 50 ML VIAL IJ (16:57)
[2024-04-28] MEDS: Omnipaque 350 MG/ML 100 ML BTL 60 ML IJ (16:58)
[2024-04-28 18:07] LABS: BE (Venous) 9 mmol/L (-2-3); HCO3 (Venous) 35 mmol/L (23-28); O2 Sat (Venous) 85 %; TCO2 (Venous) 32 mmol/L (24-29); pH (Venous) 7.31 (7.31-7.41); pO2 (Venous) 53 mmHg
[2024-04-28 18:08] LABS: pCO2 (Venous) 70 mmHg (41-51)
[2024-04-28 19:00] LABS: BE (Venous) 9 mmol/L (-2-3); HCO3 (Venous) 35 mmol/L (23-28); O2 Sat (Venous) 81 %; TCO2 (Venous) 31 mmol/L (24-29); pH (Venous) 7.36 (7.31-7.41); pO2 (Venous) 45 mmHg
[2024-04-28] MEDS: Nicotine 21 MG/24 HR PATCH TD (19:00)
[2024-04-28 19:11] LABS: pCO2 (Venous) 62 mmHg (41-51)
[2024-04-28] MEDS: CEFEPIME 2 GM in Normal Saline 100 ML IVPB (19:20)
[2024-04-28] MEDS: Normal Saline 10 ML VIAL IJ (19:48)
[2024-04-28] MEDS: VANCOMYCIN 1,500 MG in Normal Saline 250 ML 166.667 MG IVPB (19:48)
[2024-04-29] VITALS (40 sets, daily range): BP systolic 121–172; BP diastolic 81–127; PULSE 91–116; RESP 4–36; TEMP 36.6–37.5; O2SAT 87–95
[2024-04-29] MEDS: LORazepam 2 MG/ML VIAL 1 MG IVP (01:32)
[2024-04-29] MEDS: MORPHine 2 MG/ML SYR IVP ×7 (01:33→22:52)
[2024-04-29] MEDS: Albuterol/Ipratropium 3 ML UPD VIAL UPD ×4 (01:45→19:13)
[2024-04-29] MEDS: CEFEPIME 2 GM in Normal Saline 100 ML IVPB ×3 (04:54→20:15)
[2024-04-29] MEDS: methylPREDNISolone SUCC 125 MG VIAL 80 MG IVP ×3 (05:26→22:52)
[2024-04-29 05:48] LABS: BE (Venous) 11 mmol/L (-2-3); HCO3 (Venous) 36 mmol/L (23-28); O2 Sat (Venous) 98 %; TCO2 (Venous) 32 mmol/L (24-29); pCO2 (Venous) 55 mmHg (41-51); pH (Venous) 7.42 (7.31-7.41); pO2 (Venous) 85 mmHg
[2024-04-29 05:57] LABS: Abs Immature Grans 0.01 10^3/uL (0.0-0.06); Absolute Basophil Count 0.01 10^3/uL (0.0-0.2); Absolute Lymphocyte Count 0.39 10^3/uL (1.2-3.4); Absolute Monocyte Count 0.76 10^3/uL (0.1-0.8); Absolute Neutrophil Count 5.38 10^3/uL (1.2-6.7); Basophils % 0.2 %; HCT 40.5 % (40.0-50.0); HGB 12.6 g/dL (13.5-17.5); Immature Grans % 0.2 %; MCH 29.7 pg (27.0-33.0); MCHC 31.1 % (32.0-36.0); MCV 96 fL (80-95); MPV 10.1 fL (8.0-11.0); Monocytes % 11.6 %; Platelet Count 176 10^3/uL (130-400); RBC 4.24 10^6/uL (4.36-5.78); RDW 12.8 % (11.8-14.1); RDW-SD 45.1 fL; WBC 6.55 10^3/uL (4.4-10.8)
[2024-04-29 06:16] LABS: Anion Gap 2.7 mmol/L (3-11); BUN 22 mg/dL (7-18); CO2 36.3 mmol/L (21.0-32.0); CREATININE 0.7 mg/dL (0.70-1.30); Calcium 8.6 mg/dL (8.5-10.1); Chloride 109 mmol/L (98-107); Estimated GFR 107.47 (mL/min/1.73m2); Glucose 140 mg/dL (74-106); Potassium 4.4 mmol/L (3.5-5.1); Sodium 148 mmol/L (136-145); Vancomycin, Trough 6.9 ug/mL (10.0-20.0)
--- NOTE | 2024-04-29 07:12 | NUR.NOTE ---
Access chart to reconcile EKG orders with EKG's in [facility]. Duplicate order cancelled. Nursing Note:
[2024-04-29] MEDS: Tiotropium Bromide-Respimat 10 PUFF INH 2 PUFF IH (08:21)
[2024-04-29] MEDS: Budesonide/Formoterol 80/4.5 6.9 GM 60 PUFF INH IH ×2 (08:21→20:09)
--- NOTE | 2024-04-29 09:00 | RT.EKG_ITS ---
APPROVED REPORT Exam: Resting ECG Reason for Exam: worse chest pain Patient Location: I HR:99 bpm ECG Measurements Heart Rate 99 AXIS IN 103 P 87 QRSd 81 QRS 77 QT 353 T 83 QTc 454 Conclusion Sinus rhythm...normal P axis, V-rate 60- 99 Normal Electrocardiogram
--- NOTE | 2024-04-29 09:09 | CMPROGNOTE_ITS ---
Date of service: 04/29/24 Time of Service: 09:09 Care Management Progress Note Progress Note Text Progress Note Text: Wally is doing much better today and was able to transition of the Bipap and is currently sating 90% on 1L NC and talking on the phone with his family. He is being treated with IV steroids, IV ABX with cultures pending. Per pt, he resides in [facility] with his landlord and roommate Cheli. His daughter Franci lives in [place] and is supportive. He would like to make his HCA, if she agrees. Wally reported that he has mold in his apartment and it affects his lungs, however he doesn't have many options due to his criminal history. He wants a life line and thinks he can get one through [employer]. He is agreeable to a referral to [employer] for his community needs. CM will continue to follow. Discharge Potential Discharge Needs: PCP F/U Appt and Other (Palliative consult ordered, end of life care discussions) Anticipated Barriers to Discharge: Medical Status Patient/Family Education Needs: Review discharge instructions, discuss Ask Me Three Transportation: [facility] ( ) Plan: Wally continues to be closely treated and monitored in the ICU and may benefit from a PT consult. Discharge planning continues, anticipate patient will need SNF for STR vs. Home with services. [facility] provides his transportation. Referral was sent to [employer]. CM will follow. Social Determinants of Health Screening Will the Patient Participate in the Screening?: Unable to obtain
[2024-04-29] MEDS: VANCOMYCIN/WATER (PEG) 1.25 GM/250 ML BAG IVPB ×2 (09:15→20:09)
[2024-04-29] MEDS: Normal Saline Flush 10 ML SYR IVP ×4 (09:25→20:14)
[2024-04-29] MEDS: Pantoprazole 40 MG VIAL IVP (09:26)
[2024-04-29] MEDS: Enoxaparin 40 MG/0.4 ML SYR SC (09:28)
--- NOTE | 2024-04-29 10:40 | W.PM.PROGNOT ---
Date of Service Date of service: 04/29/24 Time of Service: 08:40 Assessment and Plan Assessment and plan (1) Acute respiratory failure: Status: Acute Assessment and plan: - Hypercarbic, secondary to COPD - Patient was trialed on BiPAP therapy in the emergency department, then endotracheally intubated -Successful sedation trial, extubated 04/27 AM. Oxygenation adequate even on room air since but CO2 high when not on BiPAP, back on overnight -Continue lorazepam prn anxiety, increase frequency of PRN morphine per palliative recommendations, BiPAP as needed. -Confirms full code, appreciate palliative care help. (2) COPD with acute exacerbation: Status: Acute Assessment and plan: - Patient presented with known history of COPD, 2 to 3 days of shortness of breath prior to admission, see above. - Continue IV steroids until stable taking PO. Continue nebs and restart outpatient inhalers. - smoking cessation (3) Ventilator associated pneumonia: Status: Acute Assessment and plan: Tempurature trending up 04/28 PM, CTA showed multifocal infiltrates. Recently intubated so covering with cefepime and vancomycin. Consider narrowing tomorrow. MRSA pcr to help guide this. (4) Elevated troponin: Status: Acute Assessment and plan: -Presumed secondary to respiratory failure as noted above -Initial troponin 341, repeat 397, down to 125 04/27, admission EKG reassuring, all c/w strain from acute respiratory illness. -CTA chest negative 04/26 for pulmonary embolus -Repeat EKG today again reassuring, repeat troponin given another chest pain episode. (5) PAD (peripheral artery disease): Assessment and plan: Resume oupatient antiplatelet agents and statin when able to take po. (6) Hypertension: Assessment and plan: - BP and pulse have been high, but improving today. Responds to metoprolol prn. Try oral meds today if he is able. (7) GERD (gastroesophageal reflux disease): Assessment and plan: - Switched to IV PPI while intubated as noted above, oral when he is able. (8) DVT prophylaxis: Status: Acute Assessment and plan: LMWH Subjective Subjective Patient reports: denies bowel movement, nausea, vomiting or fever Interval history since last seen: Events: Off BiPAP overnight, resumed in evening when again hypercarbic Given 2.5mg metoprolol x 2 for HTN CTA no PE, but sierra infiltrates, started on cefepime/vanco Feeling a little better this morning. Mouth and skin feels dry. Had chest pain this morning, which he has been getting, but a little worse. Not eating or drinking still. Exam Narrative Exam Narrative: Sitting back in bed, alert and oriented, no longer as clammy, responding appropriately. heart regular in 90s, no murmur. Lungs diffusely diminished but no focal rales or wheezes. Abdomen soft, nondistended, mild LLQ tenderness to deep palpation, no guarding/rebound.. Ext trace sierra edema ankles, feet with shiney hairless skin, thick nails, but warm, no cyanosis. Objective Last Vital Signs Temp 36.6 C 04/29/24 10:23 Pulse 98 H 04/29/24 10:01 Resp 13 04/29/24 10:01 BP 151/91 H 04/29/24 10:01 Pulse Ox 90 L 04/29/24 10:01 Laboratory Results - last 24 hr 04/28/24 04/28/24 04/28/24 12:55 18:00 18:50 WBC RBC Hgb Hct MCV MCH MCHC RDW Plt Count MPV Immature Gran % Neutrophils % Lymphocytes % Monocytes % Eosinophils % Basophils % Nucleated RBC % Absolute Neutrophils Absolute Lymphocytes Absolute Monocytes Absolute Eosinophils Absolute Basophils VBG pH 7.35 7.31 7.36 VBG pCO2 60 H 70 H* 62 H* VBG pO2 75 53 45 VBG HCO3 33 H 35 H 35 H VBG Total CO2 30 H 32 H 31 H VBG O2 Saturation 96 85 81 VBG Base Excess 8 H 9 H 9 H Sodium Potassium Chloride Carbon Dioxide Anion Gap BUN Creatinine Est GFR (CKD-EPI 2020) Glucose Calcium Vancomycin Trough 04/28/24 04/29/24 20:51 05:43 WBC 6.55 RBC 4.24 L Hgb 12.6 L Hct 40.5 MCV 96 H MCH 29.7 MCHC 31.1 L RDW 12.8 Plt Count 176 MPV 10.1 Immature Gran % 0.2 Neutrophils % 82.0 Lymphocytes % 6.0 Monocytes % 11.6 Eosinophils % 0.0 Basophils % 0.2 Nucleated RBC % 0.0 Absolute Neutrophils 5.38 Absolute Lymphocytes 0.39 L Absolute Monocytes 0.76 Absolute Eosinophils 0.00 Absolute Basophils 0.01 VBG pH 7.42 H VBG pCO2 55 H VBG pO2 85 VBG HCO3 36 H VBG Total CO2 32 H VBG O2 Saturation 98 VBG Base Excess 11 H Sodium 148 H Potassium 4.4 Chloride 109 H Carbon Dioxide 36.3 H Anion Gap 2.7 L BUN 22 H Creatinine 0.7 Est GFR (CKD-EPI 2020) 107.47 Glucose 140 H Calcium 8.6 Vancomycin Trough Cancelled 6.9 L Time Spent with Patient Time Spent with Patient: >50 minutes Time was spent: preparing to see the patient(eg.review tests), obtaining and/or reviewing separately otained hiistory, ordering medications,tests, procedures, referring, communicating with other health customer care associate, indepentently interpreting results, counseling the patient and care coordination
--- NOTE | 2024-04-29 14:45 | PCNE_ITS ---
Date of service: 04/29/24 Time of Service: 13:15 History of Present Illness Narrative: Mr. Lo is a 58 y/o M currently hospitalized at [facility] 2/2 COPD exacerbation; PMHx sig for COPD, fibromyalgia, depression and anxiety; on the phone w/daughter Franci at beginning of visit Hospital Course: presented to ED on 04/26 after 2d of worsening SOB, intubated in ED, admitted to ICU; extubated on 04/27 and put on BiPAP, this morning 04/29 he was able to come off BiPAP for the first time and is currently on NC w/1L, O2 sats ranging in low 90's dropping to high 80's w/effort/speech. EKG r/o acute cardiac concerns today, POCUS w/potential PNA, tx w/abx started. concerned w/hypercarbia and potential need for increased resp treatment (BiPAP or re- intubation) d/t his current status. - today he has been making lots of phone calls, which have been dropping his O2 levels, increasing SOB; RT following, receiving morphine 2mg IVP q3h PRN w/good effect for SOB; has not had lorazepam today d/t concerns of being too groggy - he has not gotten out of bed Wally is aware he has a serious lung condition and that it is getting worse. He feels it is his fault for smoking cigs, not stopping. he would like to stop smoking, states he will be throwing his last pack out when he gets out of hospital. he lives in [facility] w/his landlord and roommate Cheli. His bedroom has mold in it, they all smoke in home. He would like to relocate to a safer place for him. Money is tight, he lives on [address], he pays child support and this is a hardship on him. He has a daughter Chance, whom he trusts and has been checking in on him. These calls are important to him. He trusts her. She has a lot of personal/child things going on at the moment, he is concerned his care/decisions might be too much for her at current time. She lives in [place] He has requested his inhaler to help him w/breathing before visit started, breathing is getting more difficult for him, he is getting upset he has not received full treatment, he states prior treatment this morning was not complete d/t machine breaking. He is frustrated by this. he has central CP, chronically, which worsens w/worsening SOB/dyspnea, he feels this currently. He has never been a restoration/spiritual person, never believed in God. After his recent intubation he believes that God helped me out. He also feels that [facility] did right by him by giving him this treatment. Historically he is not fond of care he receives, so he is happy they did the right thing. - His preference would be to transfers to [facility] if he were to get sicker or need a higher level of care He would want to be intubated again for a trial if there was a chance he could come off, or it went like it did this time, he would not want to be kept alive on ventilator. He would want every opportunity to be kept alive, including CPR. He would want his daughter Franci to be his HCA, however bc of her own things, he would like to ask her first to ensure she feels comfortable with this. He is agreeable to follow up w/Palliative care, inpatient or outpatient or home visits; his phone number is [phone] Assessment and Plan Assessment and plan (1) Ventilator associated pneumonia: Status: Acute Assessment and plan: suspected after POCUS started on cefepime (2) COPD with acute exacerbation: Status: Acute Assessment and plan: w/intubation 04/26 to 04/27, extubated 04/27, difficulty coming off BiPAP, now on 1L NC recommend morphine orders changed to q1h PRN, in setting of delayed respiratory/inhaler therapies (3) Homeless: Status: Acute Assessment and plan: he reports today he lives in [facility] w/two roommates, one his landlord concern for home safety, demetrio w/mold (4) Nicotine dependence, cigarettes, uncomplicated: Status: Acute Assessment and plan: continue to smoke, plans for cessation (5) Fibromyalgia: Status: Acute Assessment and plan: did not address today (6) Anxiety: Status: Acute Assessment and plan: none in last day d/t concerns w/grogginess, w/good effect as needed (7) ACP (advance care planning): Status: Acute Assessment and plan: - Reviewed importance of identifying HCA in case he can't make own choices; preference for Franci however he would like to review/ask her first to ensure she okay with this role; Franci is on HIPAA - Reviewed intubation, he would want re-intubation if it could go like it did the first time, for a short time trial, he would not want to be kept alive indefinitely w/ventilation - He would want every opportunity to be kept alive, including CPR, at this time - He would want an early transfer to [facility] or tertiary care facility if he would not receive appropriate care at [facility] (8) Palliative care patient: Status: Acute Assessment and plan: PC will continue to follow Wally closely during this hospitalization and in the community if he were to be discharged sooner. Review of Systems Narrative: as per [facility] All Active Problems (Updated 04/29/24 @ 15:12 by Selam Weber NP) Palliative care patient (Acute) ACP (advance care planning) (Acute) Ventilator associated pneumonia (Acute) DVT prophylaxis (Acute) Demand ischemia (Acute) Elevated troponin (Acute) COPD with acute exacerbation (Acute) Acute respiratory failure (Acute) Homeless (Acute) Bilateral tinnitus (Acute) Nicotine dependence, cigarettes, uncomplicated (Acute) Iliac artery occlusion, left (Acute) Screening for malignant neoplasm of colon declined (Acute) Low back pain (Chronic 07/11/20) MRI at [place]- mild spondylotic changes w/ no significant stenosis. A left foraminal region posterior annular fissure is present at L4-5 intervertebral disc w/ no herniation Fibromyalgia (Acute ~06/19/18) [facility] visit in 2019 Chronic abdominal pain (Acute) CT at [place] 08/14/20 incidential occlusion of the left common iliac artery since previous study in 05/18/19 Otherwise no acute process identified. Unspecified dental caries (Acute) and gum disease Tubular adenoma (Acute 05/22/16) Depression (Acute) Anxiety (Acute) Medical History COPD (chronic obstructive pulmonary disease) Asthma NSTEMI (non-ST elevated myocardial infarction) (10/21/22) Hypertension PAD (peripheral artery disease) Per [facility] vascular Dr. Tori Diaz. ABIs demonstrate: Right mild, left moderate/severe GERD (gastroesophageal reflux disease) Surgical History History of open reduction and internal fixation (ORIF) procedure Hx of appendectomy Colonoscopy - IV Sedation (05/22/16) with polypectomy by forceps Family History Mother Heart disease Asthma Depression Father Personal history of malignant neoplasm LUNG Stroke Hyperlipidemia Social History Smoking/Tobacco Use Status: Current every day Tobacco Type: cigarettes Tobacco: How many years used: 30 Second Hand Exposure: Yes Smoking risk assessment performed?: Yes Alcohol Intake: never Drug use: Socially Substance use type: marijuana Caregiver/Support person: Yes Household members: none Housing: homeless Communication Needs: None Do you need help understanding health information?: Often Pets and animals: No Sexually active: No Do you think of yourself as: straight/heterosexual Current gender identity: male What is your relationship status?: never How often do you talk on the phone with friends or family?: three or more times per week How often do you get together with friends or relatives?: decline to answer Do you belong to any clubs or organized social groups?: no Panel score (0-1 are the most socially isolated patients): 1 What type of physical activity do you participate in: walking Duration: 15-30 minutes/day Frequency: 1-2 times per week Carole/Confucianism: None Special carole needs: No Seatbelt use: always Drive intox or ride w/intox mobile lounge driver: No Do you feel safe in your relationship?: Yes Exam Narrative Exam Narrative: General: older than stated age male, lying in ICU bed, on telephone for first 10m w/daughter Franci HEENT: normocephalic, atraumatic, hearing grossly WNL; dry MM Resp: NC in place, tachypnic, shallow, prolonged expiration, mouth breathing, lips slightly cyanotic; O2 levels range from 92% to 88% throughout visit; Psych: mood labile, frustrated w/lack of RT, cooperative, thought process normal to loose association; insight/judgment limited to fair Results Last Vital Signs Temp 97.9 F 04/29/24 10:23 Pulse 111 H 04/29/24 14:00 Resp 13 04/29/24 14:00 BP 151/91 H 04/29/24 10:01 Pulse Ox 90 L 04/29/24 14:00 Labs 04/29/24 05:43 04/29/24 05:43 Labs: Laboratory Results - last 24 hr 04/28/24 04/28/24 04/28/24 18:00 18:50 20:51 WBC RBC Hgb Hct MCV MCH MCHC RDW Plt Count MPV Immature Gran % Neutrophils % Lymphocytes % Monocytes % Eosinophils % Basophils % Nucleated RBC % Absolute Neutrophils Absolute Lymphocytes Absolute Monocytes Absolute Eosinophils Absolute Basophils VBG pH 7.31 7.36 VBG pCO2 70 H* 62 H* VBG pO2 53 45 VBG HCO3 35 H 35 H VBG Total CO2 32 H 31 H VBG O2 Saturation 85 81 VBG Base Excess 9 H 9 H Sodium Potassium Chloride Carbon Dioxide Anion Gap BUN Creatinine Est GFR (CKD-EPI 2020) Glucose Calcium Vancomycin Trough Cancelled 04/29/24 05:43 WBC 6.55 RBC 4.24 L Hgb 12.6 L Hct 40.5 MCV 96 H MCH 29.7 MCHC 31.1 L RDW 12.8 Plt Count 176 MPV 10.1 Immature Gran % 0.2 Neutrophils % 82.0 Lymphocytes % 6.0 Monocytes % 11.6 Eosinophils % 0.0 Basophils % 0.2 Nucleated RBC % 0.0 Absolute Neutrophils 5.38 Absolute Lymphocytes 0.39 L Absolute Monocytes 0.76 Absolute Eosinophils 0.00 Absolute Basophils 0.01 VBG pH 7.42 H VBG pCO2 55 H VBG pO2 85 VBG HCO3 36 H VBG Total CO2 32 H VBG O2 Saturation 98 VBG Base Excess 11 H Sodium 148 H Potassium 4.4 Chloride 109 H Carbon Dioxide 36.3 H Anion Gap 2.7 L BUN 22 H Creatinine 0.7 Est GFR (CKD-EPI 2020) 107.47 Glucose 140 H Calcium 8.6 Vancomycin Trough 6.9 L Time Spent Time Spent with Patient Time Spent(min): 120
[2024-04-29 16:02] LABS: BE (Venous) 11 mmol/L (-2-3); HCO3 (Venous) 35 mmol/L (23-28); O2 Sat (Venous) 98 %; TCO2 (Venous) 32 mmol/L (24-29); pCO2 (Venous) 51 mmHg (41-51); pH (Venous) 7.45 (7.31-7.41); pO2 (Venous) 83 mmHg
[2024-04-29 16:30] LABS: Troponin I 51 ng/L (<or=76)
[2024-04-29] MEDS: Nicotine 21 MG/24 HR PATCH TD (18:17)
[2024-04-29] MEDS: POTASSIUM CHLORIDE/D5-0.2%NACL 1,000 ML 150 MEQ IV (18:30)
[2024-04-29] MEDS: Acetaminophen 325 MG TAB PO (20:12)
[2024-04-29] MEDS: Cilostazol 100 MG TAB PO (20:12)
[2024-04-29] MEDS: Pregabalin 25 MG CAP PO (20:13)
[2024-04-29] MEDS: Levalbuterol 1.25 MG/3 ML UPD VIAL UPD ×2 (20:59→22:50)
[2024-04-30] VITALS (60 sets, daily range): BP systolic 108–187; BP diastolic 76–114; PULSE 0–162; RESP 2–26; TEMP 36.4–37.3; O2SAT 84–97
--- NOTE | 2024-04-30 | DI.US_ITS ---
Exam(s) US ABDOMEN EXAM: US ABDOMEN CLINICAL HISTORY: epigastric pain, distention. h/o AAA TECHNIQUE: Ultrasound abdomen performed using standard protocol. COMPARISON: CT CT ABDOMEN PELVIS W from 02/28/[address] CHEST PE CTA from 04/28/2024 FINDINGS: LIVER: Normal size and echogenicity. No focal liver lesions are seen. GALLBLADDER: No evidence of cholelithiasis. No evidence of wall thickening. No pericholecystic fluid identified. JOINER'S SIGN: Negative. BILIARY SYSTEM: No intrahepatic or extrahepatic biliary ductal dilation. KIDNEYS: Kidneys are symmetric in size. No evidence of renal calculi. No evidence of hydronephrosis. No renal mass or cyst identified. PANCREAS: Normal where visualized. Partially visualized. SPLEEN: Not enlarged. ABDOMINAL AORTA AND IVC: Aortic diameter measures maximally 2.6 x 2.4 cm. There is calcification and significant mural thrombus beginning just below the level of the renal arteries causing luminal narr owing to a diameter of 8 millimeters distally. ASCITES: Small amount of ascites seen at the lower border of the liver. IMPRESSION: Mild dilatation of the abdominal aorta to 2.6 cm. Significant mural thrombus narrowing the luminal d iameter distally to 8 millimeters. Small amount of ascites near liver. Liver and gallbladder are unremarkable. DATA REPOSITORY:
[2024-04-30 00:20] LABS: MRSA PCR Negative (Negative)
[2024-04-30] MEDS: Albuterol/Ipratropium 3 ML UPD VIAL UPD ×3 (01:36→14:29)
[2024-04-30] MEDS: MORPHine 2 MG/ML SYR IVP ×8 (01:37→23:32)
[2024-04-30] MEDS: guaiFENesin 600 MG TABCR PO ×2 (01:39→11:25)
[2024-04-30] MEDS: POTASSIUM CHLORIDE/D5-0.2%NACL 1,000 ML 150 MEQ IV (01:41)
[2024-04-30] MEDS: CEFEPIME 2 GM in Normal Saline 100 ML IVPB ×3 (03:48→20:46)
[2024-04-30 05:58] LABS: BE (Venous) 9 mmol/L (-2-3); HCO3 (Venous) 33 mmol/L (23-28); O2 Sat (Venous) 98 %; TCO2 (Venous) 30 mmol/L (24-29); pCO2 (Venous) 49 mmHg (41-51); pH (Venous) 7.44 (7.31-7.41); pO2 (Venous) 91 mmHg
[2024-04-30] MEDS: methylPREDNISolone SUCC 125 MG VIAL 80 MG IVP (06:01)
[2024-04-30] MEDS: Levalbuterol 1.25 MG/3 ML UPD VIAL UPD ×3 (06:01→22:45)
[2024-04-30 06:03] LABS: Abs Immature Grans 0.02 10^3/uL (0.0-0.06); Absolute Lymphocyte Count 0.25 10^3/uL (1.2-3.4); Absolute Monocyte Count 0.46 10^3/uL (0.1-0.8); Absolute Neutrophil Count 7.07 10^3/uL (1.2-6.7); HCT 37.9 % (40.0-50.0); HGB 12.6 g/dL (13.5-17.5); Immature Grans % 0.3 %; Lymphocytes % 3.2 %; MCH 30.3 pg (27.0-33.0); MCHC 33.2 % (32.0-36.0); MCV 91 fL (80-95); MPV 10.1 fL (8.0-11.0); Monocytes % 5.9 %; Neutrophils % 90.6 %; Platelet Count 178 10^3/uL (130-400); RBC 4.16 10^6/uL (4.36-5.78); RDW 12.3 % (11.8-14.1); RDW-SD 41.1 fL
[2024-04-30 06:12] LABS: Anion Gap 0.3 mmol/L (3-11); BUN 17 mg/dL (7-18); CO2 35.7 mmol/L (21.0-32.0); CREATININE 0.7 mg/dL (0.70-1.30); Calcium 8.5 mg/dL (8.5-10.1); Chloride 107 mmol/L (98-107); Estimated GFR 107.47 (mL/min/1.73m2); Glucose 155 mg/dL (74-106); Potassium 3.9 mmol/L (3.5-5.1); Sodium 143 mmol/L (136-145)
[2024-04-30] MEDS: Budesonide/Formoterol 80/4.5 6.9 GM 60 PUFF INH IH ×2 (07:53→19:45)
[2024-04-30] MEDS: Tiotropium Bromide-Respimat 10 PUFF INH 2 PUFF IH (07:54)
[2024-04-30] MEDS: Enoxaparin 40 MG/0.4 ML SYR SC (08:08)
[2024-04-30] MEDS: Pregabalin 25 MG CAP PO ×2 (08:09→20:32)
[2024-04-30] MEDS: Cilostazol 100 MG TAB PO ×2 (08:09→20:32)
[2024-04-30] MEDS: Atorvastatin 20 MG TAB 40 MG PO (08:09)
[2024-04-30] MEDS: Losartan 25 MG TAB PO (08:10)
[2024-04-30] MEDS: Aspirin E.C. 81 MG TABEC PO (08:10)
[2024-04-30] MEDS: VANCOMYCIN/WATER (PEG) 1.25 GM/250 ML BAG IVPB (08:11)
--- NOTE | 2024-04-30 08:41 | PDOC.CMPRO ---
Date of service: 04/30/24 Time of Service: 08:41 Care Management Progress Note Progress Note Text Progress Note Text: Wally continues to improve medically and will be transitioning to MS level care in the near future He is pleasant and engages in conversation and getting ready to eat his lunch. He reported left sided abdominal pain and mentioned that his doctor recently prescribed him a stool softner, CM notified RN. PT consult is ordered, awaiting recommendations. CM will continue to follow and support patient with his discharge needs. Discharge Potential Discharge Needs: PT Evaluation Anticipated Barriers to Discharge: Medical Status Patient/Family Education Needs: Review discharge instructions, discuss Ask Me Three Transportation: RCT Plan: Wally continues to be closely treated and monitored in the ICU. Anticipate discharge to SNF for STR vs. Home with services, awaiting PT recommendations. Transportation will be provided by RCT. Referral was sent to [facility] for support with community needs. CM will follow. Social Determinants of Health Screening Will the Patient Participate in the Screening?: Unable to obtain
[2024-04-30] MEDS: predniSONE 20 MG TAB 40 MG PO (09:15)
[2024-04-30] MEDS: Docusate Sodium 100 MG CAP PO (09:15)
[2024-04-30] MEDS: Normal Saline Flush 10 ML SYR IVP ×10 (09:16→20:32)
[2024-04-30] MEDS: Pantoprazole 40 MG VIAL IVP (10:02)
[2024-04-30] MEDS: LORazepam 2 MG/ML VIAL 1 MG IVP ×3 (10:30→23:31)
[2024-04-30] MEDS: DOXYCYCLINE 100 MG in Normal Saline 100 ML IVPB ×2 (11:24→21:53)
--- NOTE | 2024-04-30 14:25 | PT.INIE ---
PT Notes Visit Reasons: Acute exacerbation of COPD Inpatient Physical Therapy Evaluation Date: 04/30/24 Referring Doctor: Dr. Barrett PT Orders: PT CONSULT: respiratory failure, weakness, was intubated Precautions: fall, standard Patient Profile/Admitting Diagnosis: Patient admitted 04/26/24 after presenting to ER with shortness of breath. Diagnosed with acute respiratory failure requiring intubation; was extubated 04/27/24. Additional diagnoses of acute exacerbation of COPD and ventilator associated pneumonia. Social History/Home Situation: Patient resides in a mobile home with roommates. Has 4 CEZAR. States that he's hoping he will have a different living situation when he leaves here; primarily concerned about mold. He normally ambulates independently without device. Equipment Owned/DME: none Subjective: Wally states that he is very tired and continues to struggle with his breathing. He has not been up out of bed yet, and is nervous about doing so ,but agreeable to doing what he can. Objective: General Observation: Resting in bed in partial right sidelying. Telemetry, pulse oximetry and BP cuff in place. Chiu catheter. Supplemental O2 via nasal cannula. Edema noted in bilat foot/ankle, not extending into calf. Mental Status: A&Ox3. Pain: reports abdominal pain during transfer ROM: Right Upper Extremity: WFL Left Upper Extremity: WFL Right Lower Extremity: WFL Left Lower Extremity: WFL Strength: Upper Extremities: Shoulder motions grossly 3/5. Did not assess resisted strength due to significant shortness of breath with all movements. Lower Extremities: LE motions all 3/5 or greater. Did not assess resisted strength due to significant shortness of breath with all movements. Bed Mobility/Transfers: supine-sit: mod A x 1 sit-stand: initially mod A x 2. Second repetition CGA x 1 with cues for hand placement and bed elevated to ~22. SaO2 remains 89-93% throughout. stand-sit: CGA Gait: unable Balance: Static Sitting: fair Dynamic Sitting: fair Static Standing: poor Dynamic Standing: unable Special Tests: Mobility Limitations Standardized Measure [facility] AM-PAC 6 clicks Basic Mobility Inpatient Short Form: Raw Score: 12 CMS Score: 69% impairment Informed Consent/Education: Patient instructed in purpose of PT consult and plan of care. Treatment: Initial Evaluation (70391) Therapeutic Exercises ([id number]): Sit at EOB with SBA x 6 minutes, with intermittent need for cues for breathing Instructed in seated ankle pumps, 5x2, limited by fatigue Instructed in sit-stand 2x, with static standing x 45 seconds. Demonstrates heavy reliance on UE support to FWW, requires CGA throughout. SaO2 remains at 92% after standing. After completion of standing activities, patient requests breathing treatment. Nursing present and working toward getting RT consult. Assessment: Patient is a 58 year old male referred to physical therapy services for mobilization during acute care stay for management of acute respiratory failure requiring intubation; patient extubated 04/27/24. Patient presents with clinical signs and symptoms consistent with diagnosis. He demonstrated significant weakness and LAMA with mobility today, although was very motivated to improve and work on transfers. Requires frequent rest periods and anticipate slow gains in mobility due to his level of weakness and respiratory status. Will continue monitoring his progress for discharge recommendations; based on presentation today and low AM-PAC scores, anticipate need for SNF prior to returning to community. He currently demonstrates the following impairment level findings: 1. decreased activity tolerance 2. shortness of breath and deoxygenation with activity 3. LE weakness 4. UE weakness Impairments are contributing to the following functional limitations: 1. unable to transfer independently 2. unable to perform independent bed mobility 3. unable to ambulate 4. severe shortness of breath and LAMA with activity Patient is assessed as Moderate [id number] complexity based on the following: History: As above. Complicating factors include chronic respiratory issues, anxiety, and social factors (patient hoping to leave current living situation) Examination: functional limitations as above Presentation: evolving Decision Making: moderate complexity Goals: Goals X1 week 1. Supine-Sit : supervision 2. Sit-Supine : supervision 3. Sit-Stand : supervision 4. Stand-Sit : supervision 5. Bed-Chair : supervision with FWW 6. Chair-Bed : supervision with FWW 7. Gait : min A with FWW x 75' 8. Stairs : up and down 4 stairs with bilat rails Plan of Care/Treatment Plan: 1-2x/day, 7 days/week x 1 week. Plan of care has been reviewed with the RIGHT OF WAY SUPERVISOR providing the service under Physical Therapy direction. Initiate Physical Therapy intervention for strengthening, bed mobility, transfers, gait, stairs, balance training, use of assistive device. DISCHARGE RECOMMENDATIONS: SNF for continued rehabilitation TREATMENT CODE/TIME: 7502 -3686 (22615, [id number]) Dulce Abad PT, DPT [facility] All Active Problems (Updated 04/29/24 @ 15:12 by Selam Weber NP) Palliative care patient (Acute) ACP (advance care planning) (Acute) Ventilator associated pneumonia (Acute) DVT prophylaxis (Acute) Demand ischemia (Acute) Elevated troponin (Acute) COPD with acute exacerbation (Acute) Acute respiratory failure (Acute) Homeless (Acute) Bilateral tinnitus (Acute) Nicotine dependence, cigarettes, uncomplicated (Acute) Iliac artery occlusion, left (Acute) Screening for malignant neoplasm of colon declined (Acute) Low back pain (Chronic 07/11/20) MRI at [place]- mild spondylotic changes w/ no significant stenosis. A left foraminal region posterior annular fissure is present at L4-5 intervertebral disc w/ no herniation Fibromyalgia (Acute ~06/19/18) [facility] rheumatology visit in 2019 Chronic abdominal pain (Acute) CT at [place] 08/14/20 incidential occlusion of the left common iliac artery since previous study in 05/18/19 Otherwise no acute process identified. Unspecified dental caries (Acute) and gum disease Tubular adenoma (Acute 05/22/16) Depression (Acute) Anxiety (Acute) Medical History COPD (chronic obstructive pulmonary disease) Asthma NSTEMI (non-ST elevated myocardial infarction) (10/21/22) Hypertension PAD (peripheral artery disease) Per [facility] vascular Dr. Tori Diaz. ABIs demonstrate: Right mild, left moderate/severe GERD (gastroesophageal reflux disease) Surgical History History of open reduction and internal fixation (ORIF) procedure Hx of appendectomy Colonoscopy - IV Sedation (05/22/16) with polypectomy by forceps
--- NOTE | 2024-04-30 14:28 | W.PM.PROGNOT ---
Date of Service Date of service: 04/30/24 Time of Service: 14:28 Assessment and Plan Assessment and plan (1) Acute respiratory failure: Status: Acute Assessment and plan: - Hypercarbic, secondary to COPD - Patient was trialed on BiPAP therapy in the emergency department, then endotracheally intubated -Successful sedation trial, extubated 04/27 AM. Oxygenation adequate even on room air since but CO2 high when not on BiPAP for the following 48 hours. Since 04/29 has been stable on just 0.5-1L oxygen via NC, clearly improving. -Continue lorazepam prn anxiety, increase frequency of PRN morphine per palliative recommendations, give lower doses. -can change to floor status, get PT to help mobilize (2) COPD with acute exacerbation: Status: Acute Assessment and plan: - Patient presented with known history of COPD, 2 to 3 days of shortness of breath prior to admission, see above. - Now on oral steroids. Continue nebs and outpatient inhalers. - smoking cessation (3) Ventilator associated pneumonia: Status: Acute Assessment and plan: Tempurature trending up 04/28 PM, CTA showed multifocal infiltrates. Recently intubated so covering with cefepime and vancomycin. MRSA pcr negative, stop the vanco and add doxycycline. (4) Elevated troponin: Status: Acute Assessment and plan: -Presumed secondary to respiratory failure as noted above -Initial troponin 341, repeat 397, down to 125 04/27, admission EKG reassuring, all c/w strain from acute respiratory illness. -CTA chest negative 04/26 for pulmonary embolus -Repeat EKG today again reassuring, repeat troponin given another chest pain episode. (5) PAD (peripheral artery disease): Assessment and plan: Resume oupatient antiplatelet agents and statin now that taking. (6) Hypertension: Assessment and plan: - back on oral losartan, follow. (7) Abdominal pain: Status: Resolved Assessment and plan: This is chronic, but more today. He is on PPI for GERD. Try mylanta/lidocaine. He has had two contrast CTs, of chest. Start abdominal imaging with u/s. H/o AAA so should look at aorta as well. If pain getting worse get contrast CT. Repeat CBC/CMP and add lipase with the next set of labs. Get recent MRI from [facility]. (8) DVT prophylaxis: Status: Acute Assessment and plan: LMWH Subjective Subjective Patient reports: denies vomiting Interval history since last seen: Events: stable off BiPAP overnight Breathing is feeling better. Still feels very weak. Some cough. Had episode of chest pain yesterday, benign EKG and troponin. He is eating a little bit now. Continue to have some abdominal pain in epigastrum. This has been chronic for him, has been worked up with MRI at but he isn't sure what was found. Exam Narrative Exam Narrative: Sitting back in bed, alert and oriented, responding appropriately, slow to sit up. heart regular in 90s, no murmur. Lungs diffusely diminished but no focal rales, improved air movement, some slight end expiratory wheezes. Abdomen soft, nondistended, mild epigastric tenderness, no guarding/rebound.. Ext 1+ sierra edema ankles, feet with shiney hairless skin, but warm, no cyanosis. Objective Last Vital Signs Temp 37.1 C 04/30/24 13:14 Pulse 111 H 04/30/24 12:01 Resp 13 04/30/24 13:14 BP 130/93 H 04/30/24 12:01 Pulse Ox 90 L 04/30/24 13:14 Laboratory Results - last 24 hr 04/29/24 04/29/24 04/30/24 15:55 22:48 05:49 WBC 7.80 RBC 4.16 L Hgb 12.6 L Hct 37.9 L MCV 91 D MCH 30.3 MCHC 33.2 D RDW 12.3 Plt Count 178 MPV 10.1 Immature Gran % 0.3 Neutrophils % 90.6 Lymphocytes % 3.2 Monocytes % 5.9 Eosinophils % 0.0 Basophils % 0.0 Nucleated RBC % 0.0 Absolute Neutrophils 7.07 H Absolute Lymphocytes 0.25 L Absolute Monocytes 0.46 Absolute Eosinophils 0.00 Absolute Basophils 0.00 VBG pH 7.45 H 7.44 H VBG pCO2 51 49 VBG pO2 83 91 VBG HCO3 35 H 33 H VBG Total CO2 32 H 30 H VBG O2 Saturation 98 98 VBG Base Excess 11 H 9 H Sodium 143 Potassium 3.9 Chloride 107 Carbon Dioxide 35.7 H Anion Gap 0.3 L BUN 17 Creatinine 0.7 Est GFR (CKD-EPI 2020) 107.47 Glucose 155 H Calcium 8.5 Troponin I 51 MRSA (TEM-PCR) Negative Time Spent with Patient Time Spent with Patient: >50 minutes Time was spent: preparing to see the patient(eg.review tests), obtaining and/or reviewing separately otained hiistory, ordering medications,tests, procedures, referring, communicating with other health critical care paramedic, indepentently interpreting results, counseling the patient and care coordination
[2024-04-30] MEDS: MYLANTA 30 ML, LIDOCAINE 2% VISCOUS UD 15 ML PO (16:06)
--- NOTE | 2024-04-30 18:45 | RT.EKG_ITS ---
APPROVED REPORT Exam: Resting ECG Reason for Exam: tachycardia Patient Location: I HR:72 bpm ECG Measurements Heart Rate 72 AXIS MD 96 P 87 QRSd 83 QRS 69 QT 397 T 80 QTc 436 Conclusion Sinus rhythm...normal P axis, V-rate 60- 99 Late transition
[2024-04-30] MEDS: Metoprolol 5 MG/5 ML VIAL IVP (19:02)
[2024-04-30] MEDS: Metoprolol 5 MG/5 ML VIAL (19:08)
[2024-04-30] MEDS: Verapamil 5 MG/2 ML VIAL IVP ×2 (19:14→23:32)
--- NOTE | 2024-04-30 19:24 | W.EVENT ---
Date of service: 04/30/24 Time of Service: 19:24 Event Note: Called for tachycardia. Patient in AF on monitor, confirmed with 12 lead., rate up to 160s, BP 140-150s. Denies CP. No h/o AF. Given Lopressor 5 IV x2 without effect, then given Verapamil 5 IV with slowing of rate to 90-120s. Will check K, Mg, troponin, Verapamil 40 PO now and begin 40 tid. Check ECHO. Time Spent with Patient Time spent in critical care(minutes): 45 Time Spent Included: Coordination of care, Documenting critically ill care, Time at immediate bedside and Discussing critically ill care with other medical staff
[2024-04-30] MEDS: Verapamil 80 MG TAB 40 MG PO ×3 (19:30→23:34)
[2024-04-30 19:51] LABS: Magnesium 2.1 mg/dL (1.8-2.4); Potassium 3.6 mmol/L (3.5-5.1)
[2024-04-30 20:03] LABS: Troponin I 86 ng/L (<or=76)
[2024-04-30] MEDS: Nicotine 21 MG/24 HR PATCH TD (20:16)
[2024-04-30] MEDS: Acetaminophen 325 MG TAB PO (21:53)
[2024-05-01] VITALS (98 sets, daily range): BP systolic 92–143; BP diastolic 61–104; PULSE 56–148; RESP 2–26; TEMP 36.4; O2SAT 87–98
[2024-05-01] MEDS: Levalbuterol 1.25 MG/3 ML UPD VIAL UPD ×4 (01:54→14:28)
[2024-05-01] MEDS: dilTIAZem 125 MG in Normal Saline 100 ML IV (02:55)
[2024-05-01] MEDS: Normal Saline Flush 10 ML SYR IVP ×4 (04:25→21:07)
[2024-05-01] MEDS: CEFEPIME 2 GM in Normal Saline 100 ML IVPB ×3 (04:59→20:15)
[2024-05-01] MEDS: MORPHine 2 MG/ML SYR IVP ×5 (05:38→20:16)
[2024-05-01] MEDS: Tiotropium Bromide-Respimat 10 PUFF INH 2 PUFF IH (08:07)
[2024-05-01] MEDS: Budesonide/Formoterol 80/4.5 6.9 GM 60 PUFF INH IH ×2 (08:07→19:36)
[2024-05-01] MEDS: Albuterol/Ipratropium 3 ML UPD VIAL UPD ×2 (08:07→19:30)
[2024-05-01] MEDS: dilTIAZem 125 MG in Normal Saline 100 ML 17.5 MG IV ×2 (08:15→13:50)
[2024-05-01] MEDS: Cilostazol 100 MG TAB 50 MG PO (08:50)
[2024-05-01] MEDS: Enoxaparin 40 MG/0.4 ML SYR SC (08:50)
[2024-05-01] MEDS: Losartan 25 MG TAB PO (08:51)
[2024-05-01] MEDS: Verapamil 80 MG TAB PO ×3 (08:51→20:17)
[2024-05-01] MEDS: Pregabalin 25 MG CAP PO ×2 (08:51→20:17)
[2024-05-01] MEDS: predniSONE 20 MG TAB 40 MG PO (08:51)
[2024-05-01] MEDS: Aspirin E.C. 81 MG TABEC PO (08:52)
[2024-05-01] MEDS: Atorvastatin 20 MG TAB 40 MG PO (08:52)
[2024-05-01 09:16] LABS: Abs Immature Grans 0.06 10^3/uL (0.0-0.06); Absolute Basophil Count 0.01 10^3/uL (0.0-0.2); Absolute Eosinophil Count 0.01 10^3/uL (0.0-0.7); Absolute Lymphocyte Count 1.24 10^3/uL (1.2-3.4); Absolute Monocyte Count 0.92 10^3/uL (0.1-0.8); Basophils % 0.1 %; Eosinophils % 0.1 %; HCT 40.9 % (40.0-50.0); HGB 13.2 g/dL (13.5-17.5); Immature Grans % 0.5 %; Lymphocytes % 10.1 %; MCH 29.7 pg (27.0-33.0); MCHC 32.3 % (32.0-36.0); MCV 92 fL (80-95); MPV 9.8 fL (8.0-11.0); Monocytes % 7.5 %; Neutrophils % 81.7 %; Platelet Count 174 10^3/uL (130-400); RBC 4.45 10^6/uL (4.36-5.78); RDW 12.4 % (11.8-14.1); RDW-SD 41.8 fL
[2024-05-01 09:19] LABS: Absolute Neutrophil Count 10.05 10^3/uL (1.2-6.7)
[2024-05-01 09:34] LABS: ALT 97 U/L (16-63); AST 38 U/L (15-37); Albumin 2.5 g/dL (3.4-5.0); Alkaline Phosphatase 55 U/L (46-116); Anion Gap 0.6 mmol/L (3-11); BUN 18 mg/dL (7-18); Bilirubin, Total 0.32 mg/dL (0.2-1.0); CO2 36.4 mmol/L (21.0-32.0); CREATININE 0.7 mg/dL (0.70-1.30); Calcium 8.2 mg/dL (8.5-10.1); Chloride 108 mmol/L (98-107); Estimated GFR 107.47 (mL/min/1.73m2); Glucose 104 mg/dL (74-106); Lipase 51 U/L (<78); Magnesium 1.9 mg/dL (1.8-2.4); Potassium 3.3 mmol/L (3.5-5.1); Sodium 145 mmol/L (136-145); Total Protein 5.7 g/dL (6.4-8.2)
[2024-05-01 09:36] LABS: Troponin I 91 ng/L (<or=76)
[2024-05-01] MEDS: Potassium Chloride Liquid 20 MEQ PKT 40 MEQ PO (10:41)
[2024-05-01] MEDS: Pantoprazole 40 MG VIAL IVP (10:41)
[2024-05-01] MEDS: DOXYCYCLINE 100 MG in Normal Saline 100 ML IVPB ×2 (10:42→20:15)
[2024-05-01] MEDS: dilTIAZem 30 MG TAB PO (13:49)
[2024-05-01] MEDS: Acetaminophen 325 MG TAB PO ×2 (15:55→20:16)
--- NOTE | 2024-05-01 16:28 | W.PM.PROGNOT ---
Date of Service Date of service: 05/01/24 Time of Service: 16:28 Assessment and Plan Assessment and plan (1) Acute respiratory failure: Status: Acute Assessment and plan: - Hypercarbic, secondary to COPD - Patient was trialed on BiPAP therapy in the emergency department, then endotracheally intubated -Successful sedation trial, extubated 04/27 AM. Oxygenation adequate even on room air since but CO2 high when not on BiPAP for the following 48 hours. Since 04/29 has been stable on just 0.5-1L oxygen via NC, clearly improving. -Has lorazepam prn anxiety, increase frequency of PRN morphine per palliative recommendations, give lower doses, try to taper this. -can change back to floor status, has PT to help mobilize (2) COPD with acute exacerbation: Status: Acute Assessment and plan: - Patient presented with known history of COPD, 2 to 3 days of shortness of breath prior to admission, see above. - Now on oral steroids. Continue nebs and outpatient inhalers. - smoking cessation (3) Atrial fibrillation: Status: Chronic Assessment and plan: With RVR. Converted on dilt drip. Considered continuing dilt, but with elevated troponin with some possible CAD I will use metoprolol orally. Echo pending 05/03 (4) Ventilator associated pneumonia: Status: Acute Assessment and plan: Tempurature trending up 04/28 PM, CTA showed multifocal infiltrates. Recently intubated so covered with cefepime and vancomycin. MRSA pcr negative, stopped the vanco and add doxycycline. (5) Elevated troponin: Status: Acute Assessment and plan: -Presumed secondary to respiratory failure as noted above -Initial troponin 341, repeat 397, down to 125 04/27, admission EKG reassuring, all c/w strain from acute respiratory illness. -CTA chest negative 04/26 for pulmonary embolus -Repeat EKGs have not shown ischemia. Troponin did bump again with Afib RVR, will treand in AM. (6) PAD (peripheral artery disease): Assessment and plan: Resumed oupatient antiplatelet agents and statin. Now on apixaban so can stop ASA/platel as the don't have additional benefit to DOAC. (7) Hypertension: Assessment and plan: - back on oral losartan and now metoprolol, follow. (8) Abdominal pain: Status: Resolved Assessment and plan: This is chronic, better today. He is on PPI for GERD. Mylanta/lidocaine helped some. abdominal imaging with u/s benign. Repeat CBC/CMP and add lipase reassuring. Had recent MRI at [facility]. (9) DVT prophylaxis: Status: Acute Assessment and plan: Now apixaban Subjective Subjective Patient reports: feels better and tolerating a regular diet; denies diarrhea, nausea, vomiting or fever Interval history since last seen: 24hr: New atrial fibrillation with RVR, did not respond to metoprolol, started on diltiazem drip overnight. Converted back to sinus around 14:45 Feeling better now. A no chest pain. Eating a little more. Still some cough and shortness of breath, but slowly getting better. He didn't feel as good with heart fast. Exam Narrative Exam Narrative: Sitting up in bed, alert and oriented, more engaged, movements still slow. heart regular in 70s, no murmur. Lungs diffusely diminished but no focal rales, improved air movement, still some slight end expiratory wheezes. Abdomen soft, nondistended, mild epigastric tenderness, no guarding/rebound.. Ext 1+ sierra edema ankles, feet with shiney hairless skin, but warm, no cyanosis. Objective Last Vital Signs Temp 36.4 C L 04/30/24 20:30 Pulse 78 05/01/24 15:16 Resp 15 05/01/24 15:16 BP 122/77 05/01/24 15:16 Pulse Ox 90 L 05/01/24 15:16 Laboratory Results - last 24 hr 04/30/24 05/01/24 05/01/24 19:32 09:07 09:07 WBC 12.30 H RBC 4.45 Hgb 13.2 L Hct 40.9 MCV 92 MCH 29.7 MCHC 32.3 RDW 12.4 Plt Count 174 MPV 9.8 Immature Gran % 0.5 Neutrophils % 81.7 Lymphocytes % 10.1 Monocytes % 7.5 Eosinophils % 0.1 Basophils % 0.1 Nucleated RBC % 0.0 Absolute Neutrophils 10.05 H Absolute Lymphocytes 1.24 Absolute Monocytes 0.92 H Absolute Eosinophils 0.01 Absolute Basophils 0.01 Sodium 145 Potassium 3.6 3.3 L Chloride 108 H Carbon Dioxide 36.4 H Anion Gap 0.6 L BUN 18 Creatinine 0.7 Est GFR (CKD-EPI 2020) 107.47 Glucose 104 Calcium 8.2 L Magnesium 2.1 1.9 Total Bilirubin 0.32 AST 38 H ALT 97 H Alkaline Phosphatase 55 Troponin I 86 H* 91 H* Cancelled Total Protein 5.7 L Albumin 2.5 L Lipase 51 Time Spent with Patient Time Spent with Patient: >50 minutes Time was spent: preparing to see the patient(eg.review tests), obtaining and/or reviewing separately otained hiistory, ordering medications,tests, procedures, referring, communicating with other health customer care assistant, indepentently interpreting results, counseling the patient and care coordination
[2024-05-01] MEDS: Metoprolol 12.5 MG TAB PO ×2 (16:31→21:56)
--- NOTE | 2024-05-01 17:09 | PTTR_ITS ---
PT Notes Visit Reasons: Acute exacerbation of COPD Inpatient Physical Treatment Note Date: 05/01/24 Precautions: Fall. Standard. On continuous oxygen supplementation at 2 L/minute. Subjective: Glad about finally having gone out of bed and moving for this session. Was initially anxious at first but gained confidence later in the session. Objective: General Observation: Resting in bed with HOB at 30 degrees. Telemetry, pulse oximetry and BP cuff in place. Chiu catheter. Supplemental O2 via nasal cannula. Edema noted in bilat foot/ankle. DAughter Franci present in room throughout session. Mental Status: A&Ox3. Pain: None reported Bed Mobility/Transfers: Minimal cueing provided for use of B hands as needed for support, movement sequence, AD management, and posture to reduce fall risk and minimize pain report supine-sit: minimal assist with HOB at 30 degrees sit-stand: minimal assist with FWW stand-sit: contact guard assist bed to bedside chair: minimal assist and standby assist of another for safety using FWW Gait: Guided and assisted patient with a total of 7-8 slow, hesitant steps using the FWW with minimal assist of PT and stand by assist of Nurse. Oxygen saturation stayed above 90% throughout session. Patient reported minimal shortness of breath and fatigue after transfer but is happy that he was able to do do something more today. Balance: Static Sitting: Good Dynamic Sitting: Fair Static Standing: Fair Dynamic Standing: Poor Assessment: Oxygen saturation stayed within normal limits during today's transfer activity. Given enough time and encouragment, patient was able to complete bed mobility, transfer, and in-room ambulation without any desaturation episode. Plan of Care/Treatment Plan: 1-2x/day, 7 days/week x 1 week. Plan of care has been reviewed with the ACCOUNT REVIEW SPECIALIST providing the service under Physical Therapy direction. Initiate Physical Therapy intervention for strengthening, bed mobility, transfers, gait, stairs, balance training, use of assistive device. DISCHARGE RECOMMENDATIONS: SNF for continued rehabilitation TREATMENT CODE/TIME: 33785 x 28 minutes for 2 units (17:09-17:37).
[2024-05-01] MEDS: Docusate Sodium 100 MG CAP PO (20:17)
[2024-05-01] MEDS: Apixaban 5 MG TAB PO (20:17)
[2024-05-01] MEDS: Patch Removal 1 EACH TP (22:01)
[2024-05-01 22:39] LABS: Anion Gap 3.2 mmol/L (3-11); BUN 22 mg/dL (7-18); CO2 32.8 mmol/L (21.0-32.0); CREATININE 0.7 mg/dL (0.70-1.30); Calcium 8.4 mg/dL (8.5-10.1); Chloride 108 mmol/L (98-107); Estimated GFR 107.47 (mL/min/1.73m2); Glucose 147 mg/dL (74-106); Potassium 3.8 mmol/L (3.5-5.1); Sodium 144 mmol/L (136-145); Troponin I 74 ng/L (<or=76)
[2024-05-02] VITALS (25 sets, daily range): BP systolic 109–156; BP diastolic 69–115; PULSE 47–88; RESP 2–27; TEMP 36.4–37.3; O2SAT 90–97
[2024-05-02] MEDS: Albuterol/Ipratropium 3 ML UPD VIAL UPD ×4 (01:15→20:05)
[2024-05-02] MEDS: CEFEPIME 2 GM in Normal Saline 100 ML IVPB ×3 (04:39→20:26)
[2024-05-02 06:03] LABS: Abs Immature Grans 0.06 10^3/uL (0.0-0.06); Absolute Basophil Count 0.01 10^3/uL (0.0-0.2); Absolute Eosinophil Count 0.03 10^3/uL (0.0-0.7); Absolute Lymphocyte Count 1.02 10^3/uL (1.2-3.4); Absolute Monocyte Count 1.06 10^3/uL (0.1-0.8); Absolute Neutrophil Count 8.48 10^3/uL (1.2-6.7); Basophils % 0.1 %; Eosinophils % 0.3 %; HCT 37.6 % (40.0-50.0); HGB 12.2 g/dL (13.5-17.5); Immature Grans % 0.6 %; Lymphocytes % 9.6 %; MCH 29.8 pg (27.0-33.0); MCHC 32.4 % (32.0-36.0); MCV 92 fL (80-95); MPV 10.2 fL (8.0-11.0); Monocytes % 9.9 %; Neutrophils % 79.5 %; Platelet Count 190 10^3/uL (130-400); RDW 12.4 % (11.8-14.1); RDW-SD 41.7 fL; WBC 10.66 10^3/uL (4.4-10.8)
[2024-05-02 06:27] LABS: Anion Gap 2.3 mmol/L (3-11); BUN 21 mg/dL (7-18); CO2 31.7 mmol/L (21.0-32.0); CREATININE 0.6 mg/dL (0.70-1.30); Calcium 8.3 mg/dL (8.5-10.1); Chloride 109 mmol/L (98-107); Estimated GFR 112.59 (mL/min/1.73m2); Glucose 110 mg/dL (74-106); Potassium 3.3 mmol/L (3.5-5.1); Sodium 143 mmol/L (136-145); Troponin I 71 ng/L (<or=76)
[2024-05-02] MEDS: Nicotine 21 MG/24 HR PATCH TD (08:40)
[2024-05-02] MEDS: MORPHine 2 MG/ML SYR IVP ×2 (08:41→20:26)
[2024-05-02] MEDS: Potassium Chloride Liquid 20 MEQ PKT 40 MEQ PO (08:42)
[2024-05-02] MEDS: Pregabalin 25 MG CAP PO ×2 (08:43→19:28)
[2024-05-02] MEDS: Apixaban 5 MG TAB PO ×2 (08:43→19:28)
[2024-05-02] MEDS: predniSONE 20 MG TAB 40 MG PO (08:43)
[2024-05-02] MEDS: Losartan 25 MG TAB PO (08:43)
[2024-05-02] MEDS: Verapamil 80 MG TAB PO ×3 (08:43→19:28)
[2024-05-02] MEDS: Atorvastatin 20 MG TAB 40 MG PO (08:43)
[2024-05-02] MEDS: Normal Saline Flush 10 ML SYR IVP ×2 (08:44→19:30)
[2024-05-02] MEDS: Levalbuterol 1.25 MG/3 ML UPD VIAL UPD ×2 (09:35→12:37)
[2024-05-02] MEDS: Pantoprazole 40 MG VIAL IVP (09:44)
[2024-05-02] MEDS: DOXYCYCLINE 100 MG in Normal Saline 100 ML IVPB ×2 (09:44→21:30)
[2024-05-02] MEDS: Metoprolol 12.5 MG TAB PO ×3 (09:45→21:30)
[2024-05-02] MEDS: Tiotropium Bromide-Respimat 10 PUFF INH 2 PUFF IH (09:59)
[2024-05-02] MEDS: Budesonide/Formoterol 80/4.5 6.9 GM 60 PUFF INH IH ×2 (10:00→20:11)
--- NOTE | 2024-05-02 15:01 | PTTR_ITS ---
PT Notes Visit Reasons: Acute exacerbation of COPD Inpatient Physical Treatment Note Date: 05/02/24 Precautions: Fall. Standard. Subjective: Discharged oxygen supplementation as of today, now on room air but still feels out of breath. tends to get anxious with effort which increases tendencey to void urine. SAid that he was able to walk earlier today about 30 feet before anxiety took over and made him want to use the commode/urinal. Objective: General Observation: On bedside commode having bowel movement. Edema noted in bilat foot/ankle R more than L. Nurse mary vasquez and frined in room whne Pt came in. Patient agreeable to Pt helping out with transfer after bowel movement while he is cleaned by Nurse mary Vasquez. Mental Status: A&Ox3. Pain: Reported some disocmomfrt in hi L lateral lower chest which he said comes up from time to time Bed Mobility/Transfers: Minimal cueing provided for use of B hands as needed for support, movement sequence, AD management, and posture to reduce fall risk and minimize pain report sit-stand: standby assist with FWW stand-sit: stand by assist bedside commode to chair: standby assist using FWW Gait: Stand by assist with 4 small slow steps from edside commodeback to chair. Oxygen saturation stayed above 90% throughout session. Patient reported minimal shortness of breath and fatigue after transfer. Balance: Static Sitting: Good Dynamic Sitting: Fair Static Standing: Fair Dynamic Standing: Poor Assessment: Oxygen saturation stayed within normal limits during today's transfer activity on room air. Given enough time and encouragement, patient was able to complete bed mobility, transfer, and in-room ambulation without any desaturation episode. Plan of Care/Treatment Plan: 1-2x/day, 7 days/week x 1 week. Plan of care has been reviewed with the DEVELOPMENT ADMINISTRATOR providing the service under Physical Therapy direction. Initiate Physical Therapy intervention for strengthening, bed mobility, transfers, gait, stairs, balance training, use of assistive device. DISCHARGE RECOMMENDATIONS: SNF vs HH PT for continued rehabilitation and functional mobility training TREATMENT CODE/TIME: 78077 x 26 minutes for 2 units (15:01-15:27).
--- NOTE | 2024-05-02 15:33 | W.PM.PROGNOT ---
Date of Service Date of service: 05/02/24 Time of Service: 08:15 Assessment and Plan Assessment and plan (1) Acute respiratory failure: Status: Acute Assessment and plan: - Hypercarbic, secondary to COPD - Patient was trialed on BiPAP therapy in the emergency department, then endotracheally intubated -Successful sedation trial, extubated 04/27 AM. Oxygenation adequate even on room air since but CO2 high when not on BiPAP for the following 48 hours. Since 04/29 has been stable on just 0.5-1L oxygen via NC, clearly improving. -Has lorazepam prn anxiet and PRN morphine per palliative recommendations, given lower doses, try to limit this at this point. -Changed back to floor status 05/03, has PT to help mobilize (2) COPD with acute exacerbation: Status: Acute Assessment and plan: - Patient presented with known history of COPD, 2 to 3 days of shortness of breath prior to admission, see above. - Now on oral steroids. Continue nebs and outpatient inhalers. - smoking cessation (3) Atrial fibrillation: Status: Chronic Assessment and plan: With RVR. Converted on dilt drip. Considered continuing dilt, but with elevated troponin with some possible CAD changed to metoprolol orally. Rate well controlled currently, dameon overnight likely related to overlapping rate control meds. Echo pending 05/03 (4) Ventilator associated pneumonia: Status: Acute Assessment and plan: Tempurature trending up 04/28 PM, CTA showed multifocal infiltrates. Recently intubated so covered with cefepime and vancomycin. MRSA pcr negative, stopped the vanco and add doxycycline 04/30. Has been improving. Discontinue antibiotics after 5 days (after doses on 05/03) (5) Elevated troponin: Status: Acute Assessment and plan: -Presumed secondary to respiratory failure as noted above -Initial troponin 341, repeat 397, down to 125 04/27, admission EKG reassuring, all c/w strain from acute respiratory illness. -CTA chest negative 04/26 for pulmonary embolus -Repeat EKGs have not shown ischemia. Troponin did bump again with Afib RVR 04/30, trended down again. Echo 05/03 (6) PAD (peripheral artery disease): Assessment and plan: Resumed oupatient antiplatelet agents and statin. Now on apixaban so can stopped ASA/platel as the don't have additional benefit to DOAC. (7) Hypertension: Assessment and plan: - back on oral losartan and now metoprolol, follow. (8) Abdominal pain: Status: Resolved Assessment and plan: This is chronic, a little more tender today. He is on PPI for GERD. Mylanta/lidocaine helped some. abdominal imaging with u/s benign. Repeat CBC/CMP and lipase reassuring 05/01. Had recent MRI at [facility]. If worse, consider CT A/P, but my sense is that having BM would help. Ambulate, bowel regimen, follow. (9) DVT prophylaxis: Status: Acute Assessment and plan: Now apixaban Subjective Subjective Interval history since last seen: Events: converted back into NSR, cardizem stopped and metoprolol started orally Bradycardia as low as high 30s overnight, no symptoms Feeling a little better, but still weak and tired. Eatign a litle more. Abdomen continues to feel tight, more after eating. hasn't had BM. Exam Narrative Exam Narrative: Sitting up in bed, alert and oriented, more engaged, movements still slow. heart regular in 70s, no murmur. Lungs diffusely diminished but no focal rales, improved air movement, still some very slight end expiratory wheezes. Abdomen soft, nondistended, mild to moderated diffuse tenderness, Ext 1+ sierra edema ankles, feet with shiney hairless skin, but warm, no cyanosis. Objective Last Vital Signs Temp 36.4 C L 05/02/24 04:30 Pulse 85 05/02/24 10:05 Resp 18 05/02/24 10:05 BP 156/113 H 05/02/24 10:01 Pulse Ox 94 05/02/24 10:24 Laboratory Results - last 24 hr 05/01/24 05/02/24 22:05 05:20 WBC 10.66 RBC 4.10 L Hgb 12.2 L Hct 37.6 L MCV 92 MCH 29.8 MCHC 32.4 RDW 12.4 Plt Count 190 MPV 10.2 Immature Gran % 0.6 Neutrophils % 79.5 Lymphocytes % 9.6 Monocytes % 9.9 Eosinophils % 0.3 Basophils % 0.1 Nucleated RBC % 0.0 Absolute Neutrophils 8.48 H Absolute Lymphocytes 1.02 L Absolute Monocytes 1.06 H Absolute Eosinophils 0.03 Absolute Basophils 0.01 Sodium 144 143 Potassium 3.8 3.3 L Chloride 108 H 109 H Carbon Dioxide 32.8 H 31.7 Anion Gap 3.2 2.3 L BUN 22 H 21 H Creatinine 0.7 0.6 L Est GFR (CKD-EPI 2020) 107.47 112.59 Glucose 147 H 110 H Calcium 8.4 L 8.3 L Troponin I 74 71 Time Spent with Patient Time Spent with Patient: >50 minutes Time was spent: preparing to see the patient(eg.review tests), obtaining and/or reviewing separately otained hiistory, ordering medications,tests, procedures, referring, communicating with other health housekeeper child care, indepentently interpreting results, counseling the patient and care coordination
[2024-05-02] MEDS: Acetaminophen 325 MG TAB PO (19:30)
[2024-05-02] MEDS: Patch Removal 1 EACH TP (21:29)
[2024-05-03] VITALS (43 sets, daily range): BP systolic 128–164; BP diastolic 79–107; PULSE 52–96; RESP 2–28; TEMP 36.6–37.4; O2SAT 90–98
[2024-05-03] MEDS: Albuterol/Ipratropium 3 ML UPD VIAL UPD ×4 (02:05→19:48)
[2024-05-03] MEDS: Metoprolol 12.5 MG TAB PO ×4 (03:10→21:12)
[2024-05-03] MEDS: CEFEPIME 2 GM in Normal Saline 100 ML IVPB ×3 (03:13→19:39)
[2024-05-03 06:02] LABS: ALT 100 U/L (16-63); AST 44 U/L (15-37); Albumin 2.3 g/dL (3.4-5.0); Alkaline Phosphatase 51 U/L (46-116); Anion Gap 2.8 mmol/L (3-11); BUN 19 mg/dL (7-18); Bilirubin, Total 0.26 mg/dL (0.2-1.0); CO2 34.2 mmol/L (21.0-32.0); CREATININE 0.6 mg/dL (0.70-1.30); Calcium 8.1 mg/dL (8.5-10.1); Chloride 108 mmol/L (98-107); Estimated GFR 112.59 (mL/min/1.73m2); Glucose 93 mg/dL (74-106); Potassium 3.6 mmol/L (3.5-5.1); Sodium 145 mmol/L (136-145); Total Protein 5.3 g/dL (6.4-8.2)
[2024-05-03] MEDS: Budesonide/Formoterol 80/4.5 6.9 GM 60 PUFF INH IH ×2 (08:36→19:42)
[2024-05-03] MEDS: Tiotropium Bromide-Respimat 10 PUFF INH 2 PUFF IH (08:36)
--- NOTE | 2024-05-03 08:47 | PDOC.CMPRO ---
Date of service: 05/03/24 Time of Service: 08:47 Care Management Progress Note Progress Note Text Progress Note Text: Wally was sitting in a chair when CM met with him. He is somewhat anxious and agreeable to conversation. In the meantime, PT recommends SNF for STR vs. home with services when medically ready to discharge. Wally is planning on discharging back to his apartment in [place] when he is medically ready for discharge, and would consider SNF for STR, if absolutely necessary. New finding of a Mural Thrombus Narrowing was seen on his 04/30/24 Abdominal US. This finding requires further medical workup. Plan of care is unclear at this time, discharge planning continues. Wally states that his roommate and landlord both smoke and the place has mold and he has been trying to find alternative housing for a long time. Per pt, Dora Bautista at [facility] has tried to help him with his housing issues, but her efforts have been unsuccessful due to his criminal history. At this time, he is concerned about his compliance with the registry and asked CM to let [facility] know that he is here (Registry contact [phone] ). He is worried that he did not let them know he was admitted sooner. On admission Wally was critically ill, required ICU level care and was intubated. CM provided reassurance and contacted registry at pts request and is awaiting a return call. Discharge Potential Discharge Needs: PCP F/U Appt Anticipated Barriers to Discharge: Medical Status Patient/Family Education Needs: Review discharge instructions, discuss Ask Me Three Transportation: [facility] Plan: Wally continues to be closely treated and monitored in the ICU. New finding on Abdominal US requires further medical work up; plan of care to follow. PT recommends SNF for STR vs. Home with services, when medically ready for discharge. Transportation will be provided by [facility]. Referral was sent to [employer] for support with community needs. CM will follow. Social Determinants of Health Screening Will the Patient Participate in the Screening?: Unable to obtain
[2024-05-03] MEDS: predniSONE 20 MG TAB 40 MG PO (09:50)
[2024-05-03] MEDS: Nicotine 21 MG/24 HR PATCH TD (09:50)
[2024-05-03] MEDS: Apixaban 5 MG TAB PO ×2 (09:50→19:38)
[2024-05-03] MEDS: Pregabalin 25 MG CAP PO ×2 (09:50→19:38)
[2024-05-03] MEDS: Losartan 25 MG TAB PO (09:51)
[2024-05-03] MEDS: Pantoprazole 40 MG VIAL IVP (09:51)
[2024-05-03] MEDS: Atorvastatin 20 MG TAB 40 MG PO (09:51)
[2024-05-03] MEDS: Verapamil 80 MG TAB PO ×3 (09:51→19:39)
[2024-05-03] MEDS: Normal Saline 10 ML VIAL IJ (09:52)
[2024-05-03] MEDS: DOXYCYCLINE 100 MG in Normal Saline 100 ML IVPB ×2 (09:52→21:12)
[2024-05-03] MEDS: Normal Saline Flush 10 ML SYR IVP ×2 (09:54→19:41)
[2024-05-03] MEDS: Acetaminophen 325 MG TAB PO ×2 (10:55→18:48)
--- NOTE | 2024-05-03 11:25 | PT.INTREAT ---
PT Notes Visit Reasons: Acute exacerbation of COPD Inpatient Physical Treatment Note Date: 05/03/2024 Precautions: Fall. Standard. Subjective: Pt reports when he is anxious he has to urinate. He requested the fan and the urinal to be brought with him when he walks. Objective: General Observation: Seated in chair talking with Nurse . Edema noted in bilat foot/ankle R more than L. IV infusing and telemetry in place with saturation on RA while conversing 96% Mental Status: A&Ox3. Pain: Reported B calf tightness with ambulation which resolved when pt was cued to keep the FWW closer to his body. Bed Mobility/Transfers: Minimal cueing provided for use of B hands as needed for support, movement sequence, AD management, and posture to reduce fall risk and minimize pain report sit-stand: standby assist with FWW stand-sit: stand by assist bedside commode to chair: standby assist using FWW Gait: Stand by assist 50 feet x 2 Oxygen saturation stayed above 93% throughout session with pt using PLB techniques and use of fan.. Patient reported minimal shortness of breath but was able to continue conversing despite instruction to focus on breathing. Balance: Static Sitting: Good Dynamic Sitting: Fair Static Standing: Fair + Dynamic Standing: Fair with 1 UE support Assessment: Pt requires increased time to complete tasks at his pace to reduce anxiety. With the increase in time he was able to complete ambulation x 2 with seated rest period. Plan of Care/Treatment Plan: 1-2x/day, 7 days/week x 1 week. Plan of care has been reviewed with the PROGRAMMER NUMERICAL CONTROL providing the service under Physical Therapy direction. Initiate Physical Therapy intervention for strengthening, bed mobility, transfers, gait, stairs, balance training, use of assistive device. DISCHARGE RECOMMENDATIONS: SNF vs HH PT for continued rehabilitation and functional mobility training TREATMENT CODE/TIME: 35466 x 41 minutes for 3 units / [id number].
[2024-05-03] MEDS: Docusate Sodium 100 MG CAP PO (12:08)
--- NOTE | 2024-05-03 12:30 | W.NUTRFU ---
Date of service: 05/03/24 Time of Service: 12:30 Nutrition Note NOTE: pt weight stable. po intake has graduallly improved and taking 100% at meals. tolerating normal regular diet. As pt nutrition barriers are going to be high due to issues surrounding social determinant of health - homelessness. Community Connections and other support may be necessary. HAve offered food resources in the community and suggested community connections for support as well. Time Spent in Nutritional Counseling and Treatment: 5 min
--- NOTE | 2024-05-03 15:41 | PT.INTREAT ---
PT Notes Visit Reasons: Acute exacerbation of COPD Date: 05/03/2024 Precautions: Fall. Standard. Subjective: pt in the process of nebulizing, pt reports he would like to participate with therapy after he gets done with current nebulization, pt reports pain on the area of his diaphragm, thoracolumbar area and shoulder area. Objective: General Observation: telemetry, on active nebulization Mental Status: A&Ox3. Pain: Chest pain, back pain and shoulder pain at 5/10 Bed Mobility/Transfers: Supine to sitting: supervision sit to supine: supervision sit-stand: SBA stand-sit: SBA bedside commode to chair: SBA Gait: Stand by assist 100 feet x 2 Oxygen saturation stayed above 93% throughout session with pt using PLB techniques and use of fan. pt still able to converse despite report of difficulty breathing. Assessment: Pt able to tolerate gait distance given enough cue for PLB and rest break in between activity. pt reports he was starting to feel calf pain upon reaching the 100' berta, pain subsided after taking a seated rest break. pt education about energy conservation strategies to avoid muscle strain. Plan of Care/Treatment Plan: 1-2x/day, 7 days/week x 1 week. Plan of care has been reviewed with the FAMILY RESOURCE SPECIALIST providing the service under Physical Therapy direction. Initiate Physical Therapy intervention for strengthening, bed mobility, transfers, gait, stairs, balance training, use of assistive device. DISCHARGE RECOMMENDATIONS: SNF vs PT for continued rehabilitation and functional mobility training TREATMENT CODE/TIME: 46563b0 40mins (1:50-2:30pm)
--- NOTE | 2024-05-03 18:17 | W.PM.PROGNOT ---
Date of Service Date of service: 05/03/24 Time of Service: 18:17 Assessment and Plan Assessment and plan (1) Acute respiratory failure: Status: Acute Assessment and plan: - Hypercarbic, secondary to COPD - Patient was trialed on BiPAP therapy in the emergency department, then endotracheally intubated -Successful sedation trial, extubated 04/27 AM. Oxygenation adequate even on room air since but CO2 high when not on BiPAP for the following 48 hours. Since 04/29 has been stable on just 0.5-1L oxygen via NC, clearly improving. -Has lorazepam prn anxiet and PRN morphine per palliative recommendations, given lower doses, try to limit this at this point. -Changed back to floor status 05/03, has PT to help mobilize (2) COPD with acute exacerbation: Status: Acute Assessment and plan: - Patient presented with known history of COPD, 2 to 3 days of shortness of breath prior to admission, see above. - Now on oral steroids. Continue nebs and outpatient inhalers. - smoking cessation (3) Atrial fibrillation: Status: Chronic Assessment and plan: With RVR. Converted on dilt drip. Considered continuing dilt, but with elevated troponin with some possible CAD changed to metoprolol orally. Rate well controlled currently, dameon overnight likely related to overlapping rate control meds. Echo pending 05/0305.03.24 Echo not done today but is scheduled for tomorrow (4) Ventilator associated pneumonia: Status: Acute Assessment and plan: Tempurature trending up 04/28 PM, CTA showed multifocal infiltrates. Recently intubated so covered with cefepime and vancomycin. MRSA pcr negative, stopped the vanco and add doxycycline 04/30. Has been improving. Discontinue antibiotics after 5 days (after doses on 05/03) 05.03.24 Cefepime will be stopped today as well as doxy (5) Elevated troponin: Status: Acute Assessment and plan: -Presumed secondary to respiratory failure as noted above -Initial troponin 341, repeat 397, down to 125 04/27, admission EKG reassuring, all c/w strain from acute respiratory illness. -CTA chest negative 04/26 for pulmonary embolus -Repeat EKGs have not shown ischemia. Troponin did bump again with Afib RVR 04/30, trended down again. Echo 05/03 (6) PAD (peripheral artery disease): Assessment and plan: Resumed oupatient antiplatelet agents and statin. Now on apixaban so can stopped ASA/platel as the don't have additional benefit to DOAC. (7) Hypertension: Assessment and plan: - back on oral losartan and now metoprolol, follow. (8) Abdominal pain: Status: Resolved Assessment and plan: This is chronic, a little more tender today. He is on PPI for GERD. Mylanta/lidocaine helped some. abdominal imaging with u/s benign. Repeat CBC/CMP and lipase reassuring 05/01. Had recent MRI at [facility]. If worse, consider CT A/P, but my sense is that having BM would help. Ambulate, bowel regimen, follow. 05.03.24 abd usn as follows Exam(s) US ABDOMEN EXAM: US ABDOMEN CLINICAL HISTORY: epigastric pain, distention. h/o AAA TECHNIQUE: Ultrasound abdomen performed using standard protocol. COMPARISON: CT CT ABDOMEN PELVIS W from 02/28/[address] CHEST PE CTA from 04/28/2024 FINDINGS: LIVER: Normal size and echogenicity. No focal liver lesions are seen. GALLBLADDER: No evidence of cholelithiasis. No evidence of wall thickening. No pericholecystic fluid identified. JOINER'S SIGN: Negative. BILIARY SYSTEM: No intrahepatic or extrahepatic biliary ductal dilation. KIDNEYS: Kidneys are symmetric in size. No evidence of renal calculi. No evidence of hydronephrosis. No renal mass or cyst identified. PANCREAS: Normal where visualized. Partially visualized. SPLEEN: Not enlarged. ABDOMINAL AORTA AND IVC: Aortic diameter measures maximally 2.6 x 2.4 cm. There is calcification and significant mural thrombus beginning just below the level of the renal arteries causing luminal narrowing to a diameter of 8 millimeters distally. ASCITES: Small amount of ascites seen at the lower border of the liver. IMPRESSION: Mild dilatation of the abdominal aorta to 2.6 cm. Significant mural thrombus narrowing the luminal diameter distally to 8 millimeters. Small amount of ascites near liver. Liver and gallbladder are unremarkable. pt is on eliquis, will d/w vascular at [facility] in the AM (9) DVT prophylaxis: Status: Acute Assessment and plan: Now apixaban Subjective Subjective Interval history since last seen: Pt seen and examined this am. POC d/w pt as well as bedside nurse during icu huddle Exam Narrative Exam Narrative: Sitting up in bed, alert and oriented, more engaged, movements still slow. heart regular in 70s, no murmur. Lungs diffusely diminished but no focal rales, improved air movement, still some very slight end expiratory wheezes. Abdomen soft, nondistended, mild to moderated diffuse tenderness, Ext 1+ sierra edema ankles, feet with shiney hairless skin, but warm, no cyanosis. Objective Last Vital Signs Temp 37.4 C 05/03/24 17:09 Pulse 73 05/03/24 16:45 Resp 21 05/03/24 16:45 BP 147/87 H 05/03/24 17:09 Pulse Ox 92 05/03/24 16:45 Laboratory Results - last 24 hr 05/03/24 05:25 Sodium 145 Potassium 3.6 Chloride 108 H Carbon Dioxide 34.2 H Anion Gap 2.8 L BUN 19 H Creatinine 0.6 L Est GFR (CKD-EPI 2020) 112.59 Glucose 93 Calcium 8.1 L Total Bilirubin 0.26 AST 44 H ALT 100 H Alkaline Phosphatase 51 Total Protein 5.3 L Albumin 2.3 L Time Spent with Patient Time Spent with Patient: 35-49 minutes Time was spent: preparing to see the patient(eg.review tests), obtaining and/or reviewing separately otained hiistory, ordering medications,tests, procedures, referring, communicating with other health infant childcare provider, indepentently interpreting results, counseling the patient and care coordination
--- NOTE | 2024-05-03 18:23 | PGE_ITS ---
Date of Service Date of service: 05/21/24 Time of Service: 17:23 Objective Last Vital Signs Temp 37.4 C 05/03/24 17:09 Pulse 73 05/03/24 16:45 Resp 21 05/03/24 16:45 BP 147/87 H 05/03/24 17:09 Pulse Ox 92 05/03/24 16:45 Laboratory Results - last 24 hr 05/03/24 05:25 Sodium 145 Potassium 3.6 Chloride 108 H Carbon Dioxide 34.2 H Anion Gap 2.8 L BUN 19 H Creatinine 0.6 L Est GFR (CKD-EPI 2020) 112.59 Glucose 93 Calcium 8.1 L Total Bilirubin 0.26 AST 44 H ALT 100 H Alkaline Phosphatase 51 Total Protein 5.3 L Albumin 2.3 L Time Spent with Patient Time Spent with Patient: 35-49 minutes Time was spent: preparing to see the patient(eg.review tests), obtaining and/or reviewing separately otained hiistory, ordering medications,tests, procedures, referring, communicating with other health career development coordinator, indepentently interpreting results, counseling the patient and care coordination
[2024-05-03] MEDS: MORPHine 2 MG/ML SYR IVP (19:39)
--- NOTE | 2024-05-03 20:30 | DI.CT_ITS ---
Exam(s) CT ABDOMEN PELVIS WO EXAM: CT ABDOMEN PELVIS WO CLINICAL HISTORY: mural thrombus. TECHNIQUE: Imaging Protocol: Axial computed tomography images with coronal and sagittal reformatted images were created and reviewed. COMPARISON: CT CT ABDOMEN PELVIS W from 02/28/[address] ABDOMEN PELVIS CTA from 11/21/[address] CHEST PE CTA from 04/28/2024 FINDINGS: Lack of IV contrast limits evaluation of the arterial system and the abdominal pelvic organs. ABDOMEN: Lung Bases: There are calcified granuloma present. Emphysematous changes are seen in the lung bases. There is been improvement in the infiltrate seen in the lower lobe since 04/28/2024. Liver: Normal density. No measurable mass. Gallbladder and biliary tract: No radiodense calculus or biliary ductal dilation. Pancreas: Normal density, no abnormal calcifications or inflammatory process. Spleen: Normal. Kidneys: Normal size, contour and axis.No radiodense stones or obstructive uropathy. No masses seen. Adrenal glands: No mass is seen. Lymph nodes: Within normal limits. Abdominal Aorta: Atherosclerotic calcification is present. No aneurysmal dilatation. Mural thrombus is identified on the examination. It does appear to narrow the lumen of the aorta to 1 cm (series 7 , image 24). PELVIS: Bladder:Symmetric distention, no gross wall thickening. There is again seen a right-sided urinary smita dder diverticulum. There is a small focus of air anterior to the diverticulum which may lie within t he diverticulum. This may reflect prior instrumentation/Chiu catheter placement. Please correlate clinically. Bowel: There is stool throughout the colon suggesting constipation. There is no evidence of obstruct ion. No bowel wall thickening is present. There are no findings to suggest appendicitis. Peritoneal cavity: No ascites, collection or mesenteric inflammatory response. No free air. Reproductive organs: The prostate gland is mildly enlarged. Bones: Within normal limits. Soft Tissues: There is mild edema seen in the subcutaneous tissues. IMPRESSION: 1. Examination limited by lack of IV contrast. 2. Atherosclerotic calcification of the abdominal aorta. There is mural thrombus seen in the abdomin al aorta which appears to narrow the lumen to 1 cm (series 7, image 24). 3. Improvement in the infiltrate seen in the lower lobes since 04/28/2024. 4. Large amount of stool throughout the colon suggesting constipation. 5. Urinary bladder diverticulum. There is a small focus of air which appears to lie within the diver ticulum. This may reflect a recent Chiu catheter placement. Please correlate clinically. RADIATION DOSE DELIVERED: 297.65mGy.cm Total DLP DATA REPOSITORY: All CT scans at this facility are submitted to the National Radiology Data Registry (NRDR) Dose Index Registry (DIR) with the [employer] (ACR). RADIATION OPTIMIZATION: All CT scans at this facility use at least one of these dose optimization te chniques: automated exposure control; mA and/or kV adjustment per patient size (includes targeted exa ms where dose is matched to clinical indication); or iterative reconstruction.
--- NOTE | 2024-05-03 21:35 | DI.VRAD_ITS ---
PROCEDURE INFORMATION: Exam: CT Abdomen And Pelvis Without Contrast Exam date and time: 05/03/2024 8:25 PM Age: 58 years old Clinical indication: Other: Mural thrombus TECHNIQUE: Imaging protocol: Computed tomography of the abdomen and pelvis without contrast. Radiation optimization: All CT scans at this facility use at least one of these dose optimization techniques: automated exposure control; mA and/or kV adjustment per patient size (includes targeted exams where dose is matched to clinical indication); or iterative reconstruction. COMPARISON: CT ABDOMEN PELVIS CTA 11/21/2023 4:23 PM FINDINGS: Lungs: Linear bibasilar opacities most consistent with subsegmental atelectasis. Liver: The liver is unremarkable. Gallbladder and biliary ducts: No gallstones. Nondistended. No wall thickening. Pancreas: The pancreas is unremarkable. Spleen: No splenomegaly. No lesions. Adrenal glands: Normal. No mass. Kidneys and ureters: The kidneys are normal. Stomach and bowel: Click adrenalLarge amount of stool throughout the colon and rectum. Colonic diverticulosis without evidence of diverticulitis. Appendix: Appendix is not seen but there is no pericecal inflammatory change. Intraperitoneal space: Unremarkable. No free air. No significant fluid collection. Vasculature: Ectatic abdominal aorta with moderate diffuse atherosclerotic disease. Lymph nodes: No mesentery adenopathy. No edema. Urinary bladder: There is diffuse bladder wall thickening, this may be secondary to incomplete distension, however, cystitis can have a similar appearance. Correlate clinically. 3.3 cm cystic lesion in the right pelvis, this could represent a bladder diverticulum versus mesenteric cyst. Reproductive: Prostatomegaly. Bones/joints: No acute osseous abnormality. Soft tissues: Soft tissues are unremarkable as visualized. IMPRESSION: 1. There is diffuse bladder wall thickening, this may be secondary to incomplete distension, however, cystitis can have a similar appearance. Correlate clinically. 2. Prostatomegaly. 3. 3.3 cm cystic lesion in the right pelvis, this could represent a bladder diverticulum versus mesenteric cyst. 4. Ectatic abdominal aorta with moderate atherosclerotic disease and mural thrombus, although lack of contrast limits visibility of the vessels. Dictated and Authenticated by: Vanessa Bird MD. Orderin Bonilla Mehta MD
[2024-05-03] MEDS: HYDROmorphone 2 MG/ML SYR 0.5 MG IVP (21:57)
[2024-05-03] MEDS: Na Phosphate Enema-Adult 133 ML BTL PR (21:58)
[2024-05-03] MEDS: Polyethylene Glycol 3350 17 GM PACKET PO (21:58)
[2024-05-04] VITALS (40 sets, daily range): BP systolic 109–154; BP diastolic 66–139; PULSE 53–85; RESP 6–25; TEMP 37; O2SAT 91–99
[2024-05-04] MEDS: Albuterol/Ipratropium 3 ML UPD VIAL UPD ×4 (02:00→20:02)
[2024-05-04] MEDS: HYDROmorphone 2 MG/ML SYR 0.5 MG IVP ×3 (02:12→23:04)
[2024-05-04] MEDS: CEFEPIME 2 GM in Normal Saline 100 ML IVPB (03:11)
[2024-05-04] MEDS: Metoprolol 12.5 MG TAB PO ×4 (03:12→21:08)
[2024-05-04 06:10] LABS: Abs Immature Grans 0.13 10^3/uL (0.0-0.06); Absolute Basophil Count 0.01 10^3/uL (0.0-0.2); Absolute Eosinophil Count 0.17 10^3/uL (0.0-0.7); Absolute Lymphocyte Count 1.86 10^3/uL (1.2-3.4); Absolute Monocyte Count 1.14 10^3/uL (0.1-0.8); Absolute Neutrophil Count 7.24 10^3/uL (1.2-6.7); Basophils % 0.1 %; Eosinophils % 1.6 %; HCT 39.3 % (40.0-50.0); HGB 13.1 g/dL (13.5-17.5); Immature Grans % 1.2 %; Lymphocytes % 17.6 %; MCH 29.8 pg (27.0-33.0); MCHC 33.3 % (32.0-36.0); MCV 89 fL (80-95); MPV 10.1 fL (8.0-11.0); Monocytes % 10.8 %; Neutrophils % 68.7 %; Platelet Count 253 10^3/uL (130-400); RDW 12.2 % (11.8-14.1); RDW-SD 40.2 fL; WBC 10.55 10^3/uL (4.4-10.8)
[2024-05-04] MEDS: Docusate Sodium 100 MG CAP PO ×2 (06:37→23:04)
[2024-05-04] MEDS: Milk of Magnesia 30 ML CUP PO (06:37)
[2024-05-04] MEDS: Polyethylene Glycol 3350 17 GM PACKET PO (06:38)
[2024-05-04 06:44] LABS: ALT 104 U/L (16-63); AST 38 U/L (15-37); Albumin 2.4 g/dL (3.4-5.0); Alkaline Phosphatase 52 U/L (46-116); Anion Gap 1.1 mmol/L (3-11); BUN 16 mg/dL (7-18); Bilirubin, Total 0.43 mg/dL (0.2-1.0); CO2 33.9 mmol/L (21.0-32.0); CREATININE 0.6 mg/dL (0.70-1.30); Calcium 8.1 mg/dL (8.5-10.1); Chloride 108 mmol/L (98-107); Estimated GFR 112.59 (mL/min/1.73m2); Glucose 83 mg/dL (74-106); Potassium 3.4 mmol/L (3.5-5.1); Sodium 143 mmol/L (136-145); Total Protein 5.3 g/dL (6.4-8.2)
[2024-05-04] MEDS: Tiotropium Bromide-Respimat 10 PUFF INH 2 PUFF IH (07:54)
[2024-05-04] MEDS: Budesonide/Formoterol 80/4.5 6.9 GM 60 PUFF INH IH ×2 (07:54→19:25)
--- NOTE | 2024-05-04 08:16 | DI.US_ITS ---
APPROVED REPORT EXAM: Comprehensive 2D, Doppler, and color-flow Echocardiogram Patient Location: In-Patient Room/Bed: GKX577 Certified Veterinary Technician: Daria Felipe RDCS (AE) Indications: New onset A Fib, COPD, Smoker Other Information Study Quality: Fair. Technically limited study due to body habitus, smoker, very low imaging window. Conclusion Normal left ventricular wall thickness and chamber size. Ejection fraction is 55 to 60%. Wall motio n is normal Normal right ventricular size and function Both atria are normal in size There are no structural valvular abnormalities Trace mitral and tricuspid regurgitation Wall motion Left Ventricle Technically limited exam. Scan done from very low window do to smoking history. The overall left vent ricular systolic function appears normal. There is normal left ventricular wall thickness. There is n ormal LV segmental wall motion. There is no ventricular septal defect visualized. LVEF is 55%. Right Ventricle The right ventricle is normal size. The right ventricular systolic function is normal. Atria The left atrium size is normal. The right atrium size is normal. The interatrial septum is intact wit h no evidence for an atrial septal defect. Aortic Valve The aortic valve is normal in structure. Aortic valve is trileaflet. There is no aortic valvular sten osis. No aortic regurgitation is present. Mitral Valve The mitral valve is normal in structure. No evidence of mitral valve stenosis. Trace mitral regurgita tion. Tricuspid Valve The tricuspid valve is normal in structure. There is no tricuspid valve stenosis. Trace tricuspid reg urgitation. Unable to assess PA pressure. Pulmonic Valve The pulmonary valve is normal in structure. There is no pulmonic valvular stenosis. There is no pulmo clive valvular regurgitation. Great Vessels The aortic root is normal in size. Ascending aorta is not well visualized. Aortic arch is not well vi sualized. The IVC collapses <50% with inspiration. Pericardium There is no pericardial effusion. 2D Dimensions IVSD d PLAX 0.83 cm M: 0.6-1.2 Ao Root d 2.91 cm M: 3.1 - 3.7 LVPW d PLAX 0.80 cm M: 0.6 - 1.2 LVID d PLAX 4.94 cm M: 4.2 - 5.8 LVDs 3.53 cm M: 2.5 - 4.0 LV EF Teichholz 54.6 % FS 28.41 % LV EDV (Teich) 114.8 mL LV ESV (Teich) 52.1 mL M-Mode TAPSE 2.39 cm (M/F) >1.7 Auto EF LV EDV A4C 102.0 mL LV EDV A2C 77.8 mL LV EDV BP 87.6 mL LV ESV A4C 48.2 mL LV ESV A2C 36.0 mL LV ESV BP 40.8 mL LVEF(%) A4C 52.8 % LVEF(%) A2C 53.8 % LVEF(%) BP 53.5 % LV SV A4C 53.8 ml LV SV A2C 41.9 ml LV SV BP 46.9 ml LV CO A4C 3.5 L/min LV CO A2C 3.1 L/min LV CO BP 3.3 L/min HR A4C 65.46 BPM HR A2C 73.78 BPM LV EDV Index (BP) LV Diastology MV E' medial 0.101 (>0.07 m/s) MV E Vmax 0.74 (0.4-1.3 m/s) MV E/E' MED 7.35 (<14) MV A Vmax 0.85 (0.4-1.3 m/s) MV E' lateral 0.107 (>0.1 m/s) E/A Ratio 0.9 MV E/E' LAT 6.92 (<14) MV E' Average 0.104 m/s MV E/E'(average) 7.13 Aortic Valve AoV Vmax 1.29 m/s LVOT Vmax 0.86 m/s AoV Peak Grad 6.6 mmHg LVOT Peak Grad 3.0 mmHg AoV Area (Vmax) 1.81 cm2 LVOT VTI 0.171 m AoV VTI 0.257 m LVOT Mean Grad 1.7 mmHg AoV Mean Amrik. 0.87 m/s LVOT SV 46.34 mL AoV Mean Grad 3.5 mmHg LVOT Diam s 1.85 cm AoV Area (VTI) 1.80 cm2 AV Regurg Peak Gr. 6.61 mmHg Velocity Ratio 0.67 Mitral Valve MV DT 206 (160-240 msec) MV Vmax TIPS 0.80 m/s MV Mean Grad 1.2 (<2mmHg) MV VTI 0.257 m Pulmonary Valve PV Vmax 0.91 (0.5-1.5 m/s) RVOT Vmax 0.76 m/s PV Peak Grad 3.3 mmHg RVOT Peak Gr. 2.3 mmHg PV Mean Amrik 0.59 m/s RVOT VTI 0.164 m PV Mean Grad 1.7 mmHg RVOT Mean Gr. 1.1 mmHg Tricuspid Valve RA Pressure 8.00 mmHg TV S' 0.14 m/s
--- NOTE | 2024-05-04 08:26 | PDOC.CMPRO ---
Date of service: 05/04/24 Time of Service: 08:26 Care Management Progress Note Progress Note Text Progress Note Text: Wally is a 58 year old male who continues to be closely monitored and treated in the ICU (MS status) for respiratory failure. He is working with PT and requires further medical workup for a Mural Thrombus found by US on 04/30/24. Repeat US was done 05/03/24 and echo 05/04/24. Hospitalist is consulting with Surgical , treatment recommendations to follow. PT recommends SNF for STR vs. Home with services, when medically ready for discharge. Pt is agreeable to STR, and referrals are being sent to [facility] and [facility]. Palliative follow up is planned for tomorrow. Wally is motivated to discuss his goals of care and wants to find out as much about his prognosis as possible. His daughter Franci lives in [place], they have not seen each other for 6 years, however she did come to the hospital to see him and he feels she will be supportive. He wants to make her his HCA, but wants to ask her first. CM will continue to follow. Discharge Potential Discharge Needs: PCP F/U Appt Anticipated Barriers to Discharge: Medical Status Patient/Family Education Needs: Review discharge instructions, discuss Ask Me Three Transportation: [facility] Plan: Palliative follow up is planned for tomorrow. PT recommends SNF for STR vs. Home with services. Referrals are being sent to the [facility] and [facility]. Wally continues to be closely treated and monitored in the ICU. New finding on Abdominal US requires further medical work up; plan of care to follow. Transportation will be provided by [facility]. Referral was sent to [employer] for support with community needs. CM will follow. Social Determinants of Health Screening Will the Patient Participate in the Screening?: Unable to obtain
[2024-05-04] MEDS: Atorvastatin 20 MG TAB 40 MG PO (09:02)
[2024-05-04] MEDS: predniSONE 20 MG TAB 40 MG PO (09:02)
[2024-05-04] MEDS: Verapamil 80 MG TAB PO ×3 (09:02→19:22)
[2024-05-04] MEDS: Pregabalin 25 MG CAP PO ×2 (09:03→19:22)
[2024-05-04] MEDS: Apixaban 5 MG TAB PO ×2 (09:03→19:22)
[2024-05-04] MEDS: Nicotine 21 MG/24 HR PATCH TD (09:03)
[2024-05-04] MEDS: Losartan 25 MG TAB PO (09:03)
[2024-05-04] MEDS: Normal Saline Flush 10 ML SYR IVP ×3 (09:04→19:23)
[2024-05-04] MEDS: Pantoprazole 40 MG VIAL IVP (10:45)
[2024-05-04] MEDS: Normal Saline 10 ML VIAL IJ (10:45)
--- NOTE | 2024-05-04 11:19 | PDOC.CMDIS ---
Date of service: 05/04/24 Time of Service: 11:19 LACE Index Scoring Tool Questions: Length of Stay (in days): 7 - 13 Was the patient admitted via the E.D.?: Yes Comorbidities: Chronic Pulmonary Disease E.D. Visits: 1 Answers: Total Score: 11 Risk of Readmission: High Risk Care Management Discharge Plan Reason for Hospitalization: Respiratory Failure Discharge Plan: Discharge home with New [facility] RN/PT/ROLLER OPERATOR services. Follow up with community providers and discharge plan of care as instructions. Transportation will be provided by [facility] private vehicle. Patient/Family Education Needs: Review discharge instructions, limitations, medications and plan to follow up with community providers. Discuss ask me three. SDOH Health Related Social Needs: No Data to Display
--- NOTE | 2024-05-04 12:18 | PT.INTREAT ---
PT Notes Visit Reasons: Acute exacerbation of COPD Date: 05/04/2024 Precautions: Fall. Standard. Subjective: pt reports he has had a very busy morning including getting medication to have BM and then having ECHO performed. He reports feeling very anxious and overwhelmed. pt reports pain on the area of his diaphragm, thoracolumbar area and shoulder area. Objective: General Observation: Pt presents upright in bed holding fan to his face. Mental Status: A&Ox3. anxious, Pain: Chest pain, back pain and shoulder pain at 5/10 Bed Mobility/Transfers: Supine to sitting: independent with increased time with HOB fully elevated sit-stand: SBA stand-sit: SBA bed to commode : CGA without AD bedside commode to chair: SBA with FWW Gait: pm session Pt ambulated 100feet x x1, 30 feet x 1 with sit rest between. pt also took one stand rest during 100 feet. Assessment: Pt very anxious . pt functional mobility limited to his room in first session.Pt noted to have reduced RR to 14 while he is talking and elevated RR 20 21when at rest. Pt continues to rely on fan to ease his anxiety. pt education about energy conservation strategies to avoid muscle strain. Pt much calmer in pm session . Pt requires cues to attend to task and focus on mobility. He continues to rely on fan as a means to reduce anxiety when HR elevates with ambulation. Plan of Care/Treatment Plan: 1-2x/day, 7 days/week x 1 week. Plan of care has been reviewed with the CORPORATE AFFAIRS MANAGER providing the service under Physical Therapy direction. Initiate Physical Therapy intervention for strengthening, bed mobility, transfers, gait, stairs, balance training, use of assistive device. DISCHARGE RECOMMENDATIONS: SNF vs HH PT for continued rehabilitation and functional mobility training TREATMENT CODE/TIME: 1st session [id number] 2nd session [id number] x 2 [id number]
[2024-05-04] MEDS: MORPHine 2 MG/ML SYR IVP (13:05)
[2024-05-04] MEDS: Acetaminophen 325 MG TAB PO (13:05)
--- NOTE | 2024-05-04 17:24 | W.PM.PROGNOT ---
Date of Service Date of service: 05/04/24 Time of Service: 17:24 Assessment and Plan Assessment and plan (1) Acute respiratory failure: Status: Acute Assessment and plan: - Hypercarbic, secondary to COPD - Patient was trialed on BiPAP therapy in the emergency department, then endotracheally intubated -Successful sedation trial, extubated 04/27 AM. Oxygenation adequate even on room air since but CO2 high when not on BiPAP for the following 48 hours. Since 04/29 has been stable on just 0.5-1L oxygen via NC, clearly improving. -Has lorazepam prn anxiet and PRN morphine per palliative recommendations, given lower doses, try to limit this at this point. -Changed back to floor status 05/03, has PT to help mobilize 05.04.24 Pt continues to improve to the point that it is possible that he can dc in am. CW albuterol/ipratropium/budesonide/formoterol/xopenex/prednisone/tiotropium (2) COPD with acute exacerbation: Status: Acute Assessment and plan: - Patient presented with known history of COPD, 2 to 3 days of shortness of breath prior to admission, see above. - Now on oral steroids. Continue nebs and outpatient inhalers. - smoking cessation as above (3) Atrial fibrillation: Status: Chronic Assessment and plan: With RVR. Converted on dilt drip. Considered continuing dilt, but with elevated troponin with some possible CAD changed to metoprolol orally. Rate well controlled currently, dameon overnight likely related to overlapping rate control meds. Echo pending 05/0305.03.24 Echo not done today but is scheduled for tomorrow 05.04.24 Echo as below Conclusion Normal left ventricular wall thickness and chamber size. Ejection fraction is 55 to 60%. Wall motion is normal Normal right ventricular size and function Both atria are normal in size There are no structural valvular abnormalities Trace mitral and tricuspid regurgitation (4) Ventilator associated pneumonia: Status: Acute Assessment and plan: Tempurature trending up 04/28 PM, CTA showed multifocal infiltrates. Recently intubated so covered with cefepime and vancomycin. MRSA pcr negative, stopped the vanco and add doxycycline 04/30. Has been improving. Discontinue antibiotics after 5 days (after doses on 05/03) 05.03.24 Cefepime will be stopped today as well as doxy (5) Elevated troponin: Status: Acute Assessment and plan: -Presumed secondary to respiratory failure as noted above -Initial troponin 341, repeat 397, down to 125 04/27, admission EKG reassuring, all c/w strain from acute respiratory illness. -CTA chest negative 04/26 for pulmonary embolus -Repeat EKGs have not shown ischemia. Troponin did bump again with Afib RVR 04/30, trended down again. Echo 05/03 (6) PAD (peripheral artery disease): Assessment and plan: Resumed oupatient antiplatelet agents and statin. Now on apixaban so can stopped ASA/platel as the don't have additional benefit to DOAC. (7) Hypertension: Assessment and plan: - back on oral losartan and now metoprolol, follow. (8) Abdominal pain: Status: Resolved Assessment and plan: This is chronic, a little more tender today. He is on PPI for GERD. Mylanta/lidocaine helped some. abdominal imaging with u/s benign. Repeat CBC/CMP and lipase reassuring 05/01. Had recent MRI at [facility]. If worse, consider CT A/P, but my sense is that having BM would help. Ambulate, bowel regimen, follow. 05.03.24 abd usn as follows Exam(s) US ABDOMEN EXAM: US ABDOMEN CLINICAL HISTORY: epigastric pain, distention. h/o AAA TECHNIQUE: Ultrasound abdomen performed using standard protocol. COMPARISON: CT CT ABDOMEN PELVIS W from 02/28/[address] CHEST PE CTA from 04/28/2024 FINDINGS: LIVER: Normal size and echogenicity. No focal liver lesions are seen. GALLBLADDER: No evidence of cholelithiasis. No evidence of wall thickening. No pericholecystic fluid identified. JOINER'S SIGN: Negative. BILIARY SYSTEM: No intrahepatic or extrahepatic biliary ductal dilation. KIDNEYS: Kidneys are symmetric in size. No evidence of renal calculi. No evidence of hydronephrosis. No renal mass or cyst identified. PANCREAS: Normal where visualized. Partially visualized. SPLEEN: Not enlarged. ABDOMINAL AORTA AND IVC: Aortic diameter measures maximally 2.6 x 2.4 cm. There is calcification and significant mural thrombus beginning just below the level of the renal arteries causing luminal narrowing to a diameter of 8 millimeters distally. ASCITES: Small amount of ascites seen at the lower border of the liver. IMPRESSION: Mild dilatation of the abdominal aorta to 2.6 cm. Significant mural thrombus narrowing the luminal diameter distally to 8 millimeters. Small amount of ascites near liver. Liver and gallbladder are unremarkable. pt is on eliquis, will d/w vascular at [facility] in the AM see subjective, no interventions recommended by Vascular (9) DVT prophylaxis: Status: Acute Assessment and plan: Now apixaban (10) Lytic bone lesion of hip: Status: Acute Assessment and plan: exact etiology is unknown and will place ct reading below IMPRESSION: 1. There is diffuse bladder wall thickening, this may be secondary to incomplete distension, however, cystitis can have a similar appearance. Correlate clinically. 2. Prostatomegaly. 3. 3.3 cm cystic lesion in the right pelvis, this could represent a bladder diverticulum versus mesenteric cyst. 4. Ectatic abdominal aorta with moderate atherosclerotic disease and mural thrombus, although lack of contrast limits visibility of the vessels. Will d/w pt and radiology in am Subjective Subjective Interval history since last seen: Pt seen and examined in the AM. No new complaints noted. I did discuss with vascular surgery in [facility] who did not recommend any interventions at this time and recommend following up as an outpatient. Still with some abdominal pain Exam Narrative Exam Narrative: Sitting up in bed, alert and oriented, more engaged, movements still slow. heart regular in 70s, no murmur. Lungs diffusely diminished but no focal rales, improved air movement, still some very slight end expiratory wheezes. Abdomen soft, nondistended, mild to moderated diffuse tenderness, Ext 1+ sierra edema ankles, feet with shiney hairless skin, but warm, no cyanosis. Objective Last Vital Signs Temp 37.0 C 05/04/24 09:30 Pulse 72 05/04/24 13:59 Resp 16 05/04/24 13:59 BP 135/66 05/04/24 13:09 Pulse Ox 96 05/04/24 13:59 Laboratory Results - last 24 hr 05/04/24 05:26 WBC 10.55 RBC 4.40 Hgb 13.1 L Hct 39.3 L MCV 89 MCH 29.8 MCHC 33.3 RDW 12.2 Plt Count 253 MPV 10.1 Immature Gran % 1.2 Neutrophils % 68.7 Lymphocytes % 17.6 Monocytes % 10.8 Eosinophils % 1.6 Basophils % 0.1 Nucleated RBC % 0.0 Absolute Neutrophils 7.24 H Absolute Lymphocytes 1.86 Absolute Monocytes 1.14 H Absolute Eosinophils 0.17 Absolute Basophils 0.01 Sodium 143 Potassium 3.4 L Chloride 108 H Carbon Dioxide 33.9 H Anion Gap 1.1 L BUN 16 Creatinine 0.6 L Est GFR (CKD-EPI 2020) 112.59 Glucose 83 Calcium 8.1 L Total Bilirubin 0.43 AST 38 H ALT 104 H Alkaline Phosphatase 52 Total Protein 5.3 L Albumin 2.4 L Time Spent with Patient Time Spent with Patient: 25-34 minutes Time was spent: preparing to see the patient(eg.review tests), obtaining and/or reviewing separately otained hiistory, ordering medications,tests, procedures, referring, communicating with other health floor care technician, indepentently interpreting results, counseling the patient and care coordination
[2024-05-04] MEDS: guaiFENesin 600 MG TABCR PO (19:22)
[2024-05-05] VITALS (18 sets, daily range): BP systolic 104–131; BP diastolic 63–83; PULSE 55–112; RESP 9–23; TEMP 37–37.5; O2SAT 91–100
[2024-05-05] MEDS: Albuterol/Ipratropium 3 ML UPD VIAL UPD ×3 (02:00→15:34)
[2024-05-05] MEDS: Metoprolol 12.5 MG TAB PO ×3 (03:19→16:43)
[2024-05-05] MEDS: HYDROmorphone 2 MG/ML SYR 0.5 MG IVP ×3 (03:20→14:56)
[2024-05-05 06:02] LABS: Abs Immature Grans 0.12 10^3/uL (0.0-0.06); Absolute Basophil Count 0.01 10^3/uL (0.0-0.2); Absolute Eosinophil Count 0.25 10^3/uL (0.0-0.7); Absolute Monocyte Count 1.19 10^3/uL (0.1-0.8); Basophils % 0.1 %; Eosinophils % 2.3 %; HCT 40.5 % (40.0-50.0); HGB 13.3 g/dL (13.5-17.5); Immature Grans % 1.1 %; Lymphocytes % 19.2 %; MCH 29.4 pg (27.0-33.0); MCHC 32.8 % (32.0-36.0); MCV 90 fL (80-95); MPV 9.9 fL (8.0-11.0); Monocytes % 10.9 %; Neutrophils % 66.4 %; Platelet Count 283 10^3/uL (130-400); RBC 4.52 10^6/uL (4.36-5.78); RDW 12.2 % (11.8-14.1); RDW-SD 39.8 fL; WBC 10.96 10^3/uL (4.4-10.8)
[2024-05-05 06:15] LABS: Absolute Neutrophil Count 7.28 10^3/uL (1.2-6.7)
[2024-05-05 06:20] LABS: ALT 96 U/L (16-63); AST 30 U/L (15-37); Albumin 2.4 g/dL (3.4-5.0); Alkaline Phosphatase 52 U/L (46-116); Anion Gap 0.5 mmol/L (3-11); BUN 15 mg/dL (7-18); Bilirubin, Total 0.35 mg/dL (0.2-1.0); CO2 34.5 mmol/L (21.0-32.0); CREATININE 0.6 mg/dL (0.70-1.30); Calcium 8.2 mg/dL (8.5-10.1); Chloride 108 mmol/L (98-107); Estimated GFR 112.59 (mL/min/1.73m2); Glucose 81 mg/dL (74-106); Potassium 3.6 mmol/L (3.5-5.1); Sodium 143 mmol/L (136-145); Total Protein 5.3 g/dL (6.4-8.2)
[2024-05-05] MEDS: Tiotropium Bromide-Respimat 10 PUFF INH 2 PUFF IH (08:04)
[2024-05-05] MEDS: Budesonide/Formoterol 80/4.5 6.9 GM 60 PUFF INH IH (08:04)
[2024-05-05] MEDS: Normal Saline Flush 10 ML SYR IVP ×2 (08:44→14:56)
[2024-05-05] MEDS: Nicotine 21 MG/24 HR PATCH TD (08:44)
[2024-05-05] MEDS: Pantoprazole 40 MG TABCR PO (08:44)
[2024-05-05] MEDS: Losartan 25 MG TAB PO (08:45)
[2024-05-05] MEDS: Atorvastatin 20 MG TAB 40 MG PO (08:45)
[2024-05-05] MEDS: Pregabalin 25 MG CAP PO (08:45)
[2024-05-05] MEDS: predniSONE 20 MG TAB 40 MG PO (08:45)
[2024-05-05] MEDS: Apixaban 5 MG TAB PO ×2 (08:45→17:48)
[2024-05-05] MEDS: Verapamil 80 MG TAB PO (08:45)
--- NOTE | 2024-05-05 12:56 | PT.INTREAT ---
PT Notes Visit Reasons: Acute exacerbation of COPD Inpatient Physical Treatment Note Date: 05/05/24 Precautions: Fall. Standard. Activity as tolerated. Subjective: Still gasps for air eventhough his oxygen saturation has been consistently above 90% on room air. Understands the im,protance of corredt breathing techniques to inimize anxiety. Objective: General Observation: Sitting on bedside chair Mental Status: A&Ox3. Pain: None reported Bed Mobility/Transfers: Minimal cueing provided for use of B hands as needed for support, movement sequence, AD management, and posture to reduce fall risk and minimize pain report sit-stand: independent with FWW stand-sit: independent with FWW Gait: 150 feet + 150 using FWW. Irma slow. Anxiety high but with encouragement is able to complete task. SaO2 on tele remained above 90% throughout. Stairs: Up and down 3 x 4-inch steps and 2 x 6-inch steps while holding onto b rails for support with SaO2 above 90% consistently. Balance: Static Sitting: Good Dynamic Sitting: Fair Static Standing: Fair Dynamic Standing: Poor Assessment: Oxygen saturation stayed within normal limits during today's session. Given enough time and encouragement, patient was able to complete bed mobility, transfer, and hallway ambulation without any desaturation episode. Plan of Care/Treatment Plan: Continue with HH PT for functional safety training and energy conservation at D/C destination. DISCHARGE RECOMMENDATIONS: HH PT for continued rehabilitation and functional mobility training TREATMENT CODE/TIME: 32801 x 31 minutes for 2 units (11:39-12:10).
--- NOTE | 2024-05-05 13:49 | DSE_ITS ---
Date of service: 05/05/24 Time of Service: 13:49 DS: Diagnosis Discharge Diagnosis (1) Acute respiratory failure: Status: Acute (2) COPD with acute exacerbation: Status: Acute (3) Atrial fibrillation: Status: Chronic (4) Ventilator associated pneumonia: Status: Acute (5) Elevated troponin: Status: Acute (6) PAD (peripheral artery disease): (7) Hypertension: (8) Abdominal pain: Status: Resolved (9) DVT prophylaxis: Status: Acute (10) Lytic bone lesion of hip: Status: Acute Discharge Plan Disposition Patient Disposition: Home Condition: Good Discharge Details Reason For Visit: Acute exacerbation of COPD Admit Date/Time: 04/26/24 07:58 Admit Provider: Danny Barrett Attending Provider: Danny Barrett [facility] Course: This is a 58-year-old gentleman who was admitted on 26 April for respiratory failure requiring intubation. Patient was originally admitted to the ICU but was eventually extubated and continue improved in regards to his respiratory status. While he was here he was also diagnosed with atrial fibrillation as well as a lytic bone lesion versus possible bladder diverticulum. While he was in the house he is also noted to have an aortic aneurysm and a mural thrombus. I did discuss the mural thrombus and aneurysm with vascular surgery at [facility] who recommended outpatient follow-up only. I have attached his echo results as well as the CT and abdominal ultrasounds below for convenience. At the time of discharge she will go home with Eliquis as well as metoprolol and his other home medications. I have recommended follow-up with his primary care physician as well as with Dr. Martinez of the urology service. Patient is discharged in good health. I also had a discussion of over 15 minutes with Mr. Poole in regards to smoking cessation. echo result Conclusion Normal left ventricular wall thickness and chamber size. Ejection fraction is 55 to 60%. Wall motion is normal Normal right ventricular size and function Both atria are normal in size There are no structural valvular abnormalities Trace mitral and tricuspid regurgitation CT without contrast 1. Examination limited by lack of IV contrast. 2. Atherosclerotic calcification of the abdominal aorta. There is mural thrombus seen in the abdominal aorta which appears to narrow the lumen to 1 cm (series 7, image 24). 3. Improvement in the infiltrate seen in the lower lobes since 04/28/2024. 4. Large amount of stool throughout the colon suggesting constipation. 5. Urinary bladder diverticulum. There is a small focus of air which appears to lie within the diverticulum. This may reflect a recent Chiu catheter placement. Please correlate clinically. IMPRESSION: 1. There is diffuse bladder wall thickening, this may be secondary to incomplete distension, however, cystitis can have a similar appearance. Correlate clinically. 2. Prostatomegaly. 3. 3.3 cm cystic lesion in the right pelvis, this could represent a bladder diverticulum versus mesenteric cyst. 4. Ectatic abdominal aorta with moderate atherosclerotic disease and mural thrombus, although lack of contrast limits visibility of the vessels. abdominal usn IMPRESSION: Mild dilatation of the abdominal aorta to 2.6 cm. Significant mural thrombus narrowing the luminal diameter distally to 8 millimeters. Small amount of ascites near liver. Liver and gallbladder are unremarkable. Home Meds and New Rx's Prescriptions: New Eliquis 5 mg Tablet 5 mg PO BID Qty: 60 0RF metoprolol tartrate 25 mg tablet 25 mg PO DAILY Qty: 30 0RF Continued pregabalin [Lyrica] 25 mg capsule 25 mg PO BID Qty: 180 3RF ipratropium-albuterol 0.5 mg-3 mg(2.5 mg base)/3 mL solution for nebulization 3 ml inhalation QID PRN (Reason: wheezing) Qty: 180 12RF Airsupra 90-80 mcg/actuation HFA aerosol inhaler 2 inh inhalation ONCE Qty: 10.7 12RF Rx Instructions: as a single dose; may repeat up to 6 doses per day (12 inhalations) albuterol sulfate 90 mcg/actuation HFA aerosol inhaler 2 puff Inhalation Q6H PRN Qty: 3 4RF aspirin [Adult Aspirin Regimen] 81 mg tablet,delayed release (DR/EC) 81 mg PO DAILY Qty: 90 1RF atorvastatin 20 mg tablet 20 mg PO DAILY Qty: 90 3RF cilostazol 100 mg tablet 100 mg PO BID Qty: 180 1RF losartan 25 mg tablet 25 mg PO DAILY Qty: 90 1RF Spiriva Respimat 2.5 mcg/actuation mist 2 puff inhalation DAILY Qty: 4 2RF budesonide-formoterol [Symbicort] 160-4.5 mcg/actuation HFA aerosol inhaler 2 puff inhalation Q12H Qty: 20.4 1RF Discharge Instructions Referrals: Davonte Mratinez MD [ [facility] STAFF PHYSICIAN] - (follow up in 2-4 weeks) Celeste Rodrigues NP [Primary Care Provider] - (follow up in 5-7 days) Activity:: Activity as Tolerated Equipment/Supplies:: No Equipment Needed Diet:: As Tolerated Discharge Orders Discharge Orders: Discharge Order (Routine); Ordered 05/05/24 Ordered By: Tyson Crystal DS: Summary Summary Time spent discussing smoking cessation with patient: more than 10 minutes Time Spent with Patient providing and/or coordinating discharge services: Greater than 30 minutes Status at Discharge Functional status at discharge: independent ambulation Overall status at discharge: patient is back to baseline Mental Status: mental status grossly normal Speech and Movement: speech and movement normal Mood: congruent mood Affect: normal affect Quality:SDOH Health Related Social Needs: No Data to Display Exam Narrative Exam Narrative: Sitting up in bed, alert and oriented, more engaged, movements still slow. heart regular in 70s, no murmur. Lungs diffusely diminished but no focal rales, improved air movement, still some very slight end expiratory wheezes. Abdomen soft, nondistended, mild to moderated diffuse tenderness, Ext 1+ sierra edema ankles, feet with shiney hairless skin, but warm, no cyanosis. Psych Mental Status: mental status grossly normal Speech and Movement: speech and movement normal Mood: congruent mood Affect: normal affect DS: Data Vitals/I&O Vitals and I&O: Vital Signs Temperature 37.0 C 05/05/24 03:17 Temperature Source Temporal Artery Scan 05/04/24 09:30 Pulse 90 05/05/24 11:47 Pulse 85 05/05/24 11:47 Respiratory Rate 17 05/05/24 11:47 Respiratory Effort Short of Breath, Labored, Accessory Muscle Use, Tripod, Incrsd Work of Breathing 04/26/24 07:35 Respiratory Depth Deep 04/26/24 07:35 Respiratory Pattern Tachypnea 04/26/24 07:35 Blood Pressure 127/83 05/05/24 11:47 Blood Pressure Mean 96 05/05/24 11:47 Blood Pressure Position Supine 04/26/24 09:30 Pulse Oximetry 93 05/05/24 11:47 Respiratory End-tidal CO2 51 04/27/24 09:02 Oxygen Delivery Method Room Air 05/05/24 07:50 Oxygen Flow Rate 0 05/05/24 07:50 Fraction of Inspired Oxygen (FIO2) 28 04/30/24 22:54 Pain Level 0 05/05/24 04:20 Comment Patient is resting quietly and comfortably with eyes closed while lying in left lateral position in bed at this time. 04/28/24 17:02 Intake & Output 05/04/24 05/05/24 05/05/24 23:59 11:59 23:59 Intake Total 260 / 1050 740 / 740 Output Total 525 / 1675 950 / 950 Balance -265 / -625 -210 / -210 Weight 52.4 kg Intake: IV 40 / 180 40 / 40 Oral 220 / 870 700 / 700 Output: Urine 525 / 1675 950 / 950 Other: Urine Color Yellow Yellow Urine Appearance Clear Clear Urine Odor None Normal Data Completed and Pending Labs on day of discharge: Labs from last 24 hours 05/05/24 05:29 WBC 10.96 H RBC 4.52 Hgb 13.3 L Hct 40.5 MCV 90 MCH 29.4 MCHC 32.8 RDW 12.2 Plt Count 283 MPV 9.9 Immature Gran % 1.1 Neutrophils % 66.4 Lymphocytes % 19.2 Monocytes % 10.9 Eosinophils % 2.3 Basophils % 0.1 Nucleated RBC % 0.0 Absolute Neutrophils 7.28 H Absolute Lymphocytes 2.10 Absolute Monocytes 1.19 H Absolute Eosinophils 0.25 Absolute Basophils 0.01 Sodium 143 Potassium 3.6 Chloride 108 H Carbon Dioxide 34.5 H Anion Gap 0.5 L BUN 15 Creatinine 0.6 L Est GFR (CKD-EPI 2020) 112.59 Glucose 81 Calcium 8.2 L Total Bilirubin 0.35 AST 30 ALT 96 H Alkaline Phosphatase 52 Total Protein 5.3 L Albumin 2.4 L PFSH All Active Problems (Updated 05/04/24 @ 17:32 by Tyson Crystal MD) Lytic bone lesion of hip (Acute) Atrial fibrillation (Chronic) Palliative care patient (Acute) ACP (advance care planning) (Acute) Ventilator associated pneumonia (Acute) DVT prophylaxis (Acute) Demand ischemia (Acute) Elevated troponin (Acute) COPD with acute exacerbation (Acute) Acute respiratory failure (Acute) Homeless (Acute) Bilateral tinnitus (Acute) Nicotine dependence, cigarettes, uncomplicated (Acute) Iliac artery occlusion, left (Acute) Screening for malignant neoplasm of colon declined (Acute) Low back pain (Chronic 07/11/20) MRI at [facility]- mild spondylotic changes w/ no significant stenosis. A left foraminal region posterior annular fissure is present at L4-5 intervertebral disc w/ no herniation Fibromyalgia (Acute ~06/19/18) [facility] rheumatology visit in 2019 Chronic abdominal pain (Acute) CT at [facility] 08/14/20 incidential occlusion of the left common iliac artery since previous study in 05/18/19 Otherwise no acute process identified. Unspecified dental caries (Acute) and gum disease Tubular adenoma (Acute 05/22/16) Depression (Acute) Anxiety (Acute) Medical History COPD (chronic obstructive pulmonary disease) Asthma NSTEMI (non-ST elevated myocardial infarction) (10/21/22) Hypertension PAD (peripheral artery disease) Per [facility] [place] vascular Dr. Tori Diza. ABIs demonstrate: Right mild, left moderate/severe GERD (gastroesophageal reflux disease) Surgical History History of open reduction and internal fixation (ORIF) procedure Hx of appendectomy Colonoscopy - IV Sedation (05/22/16) with polypectomy by forceps Family History Mother Heart disease Asthma Depression Father Personal history of malignant neoplasm LUNG Stroke Hyperlipidemia Social History Smoking/Tobacco Use Status: Current every day Tobacco Type: cigarettes Tobacco: How many years used: 30 Second Hand Exposure: Yes Smoking risk assessment performed?: Yes Alcohol Intake: never Drug use: Socially Substance use type: marijuana Caregiver/Support person: Yes Household members: none Housing: homeless Communication Needs: None Do you need help understanding health information?: Often Pets and animals: No Sexually active: No Do you think of yourself as: straight/heterosexual Current gender identity: male What is your relationship status?: never How often do you talk on the phone with friends or family?: three or more times per week How often do you get together with friends or relatives?: decline to answer Do you belong to any clubs or organized social groups?: no Panel score (0-1 are the most socially isolated patients): 1 What type of physical activity do you participate in: walking Duration: 15-30 minutes/day Frequency: 1-2 times per week Carole/Mandaeism: None Special carole needs: No Seatbelt use: always Drive intox or ride w/intox refrigerated company driver: No Do you feel safe in your relationship?: Yes Time Spent with Patient Time Spent with Patient: 45-69 minutes Time was spent: preparing to see the patient(eg.review tests), obtaining and/or reviewing separately otained hiistory, ordering medications,tests, procedures, referring, communicating with other health nursing care attendant, indepentently interpreting results, counseling the patient and care coordination
--- NOTE | 2024-05-05 16:36 | PCPN_ITS ---
Date of service: 05/05/24 Time of Service: 14:00 Assessment and Plan Assessment and plan (1) COPD with acute exacerbation: Status: Acute Assessment and plan: w/intubation 04/26 to 04/27, extubated 04/27, difficulty coming off BiPAP, weaned down off oxygen now on RA dyspnic w/limited speech, increases anxiety nebs w/good effect recommend morphine concentrate 5mg PO q4h PRN for dyspnea on discharge need for review of his COPD, typical progression and where he is in this timeline. (2) Nicotine dependence, cigarettes, uncomplicated: Status: Acute Assessment and plan: continue to smoke, plans for cessation in home lives in home w/smokers (3) Anxiety: Status: Acute Assessment and plan: uncontrolled was getting lorazepam PRN in hospital w/good effect consider outpatient pending f/u requesting assistance w/connection to specialist, f/u w/PCP 05/11 (4) ACP (advance care planning): Status: Acute Assessment and plan: reviewed CODE status, full code remains; trial of interventions, would not want to be kept alive indefinitely on machines if no chance of coming off reviewed HCA preferences and purpose; would want daughter Robert Poole reviewed AD, completing his preferences as reviewed for him to look at once he returns home and consider completing formally in home. - LST as long as: able to care for self, be aware/conscious of surroundings, live w/o incapacitating pain his goals are to continue to grow his relationship with Franci and be part of her life 45m spent w/ACP (5) Palliative care patient: Status: Acute Assessment and plan: PC will continue to follow Wally in the community, HV to be scheduled recommend PCP consider reviewing COPD or ACP at f/u Wally does best with slow, direct communication. He needs redirection, but is comfortable with being brought back to topic. He is anxious, and needs reassurance. Subjective Subjective Interval history since last seen: Wally remains hospitalized 2/2 COPD exacerbation, in the ICU, plans for discharge home today - today's visit specifically to review ACP documents Continues to get worsening SOB easily, demetrio w/prolonged speaking. He is on room air now He is anxious, nervous and worried at his baseline. He is worried about returning home, his roommates all smoke and there is mold. he wishes he could move to a safer place and rely less on roommates Cheli and Lennox, who have a lot on their plate at the moment. He is aware that he could have been discharged to a short term rehab, however he did not feel like this would be helpful for him to plan for a longer term plan. - he would like to be connected for mental health supports in the community, to help him think about mind and body connection He has pain in abdomen/chest, demetrio w/worsening dyspnea and anxiety. So far his medications in hospital have been helping to relief the pain. - He has been constipated, he is aware that he needs to continue bowel regimen at home. He would like to review ACP documents, specifically AD today. He is grateful for the care he has received at [facility], it helped him change his perspective of care in this hospital PCP f/u 05/11 - Celeste Ravi Exam Narrative Exam Narrative: General: older than stated age male, sitting in chair at bedside in ICU; initial visit talking to CM then phone w/friend HEENT: normocephalic, atraumatic, hearing grossly WNL; Resp: room air; tachypnic, shallow, prolonged expiration, mouth breathing, accessory muscle use Psych: mood labile, cooperative, thought process normal to loose association; tangential, anxious, insight/judgment limited to fair Objective Last Vital Signs Temp 98.6 F 05/05/24 03:17 Pulse 95 H 05/05/24 15:43 Resp 19 05/05/24 15:43 BP 127/83 05/05/24 12:10 Pulse Ox 92 05/05/24 15:34 Laboratory Results - last 24 hr 05/05/24 05:29 WBC 10.96 H RBC 4.52 Hgb 13.3 L Hct 40.5 MCV 90 MCH 29.4 MCHC 32.8 RDW 12.2 Plt Count 283 MPV 9.9 Immature Gran % 1.1 Neutrophils % 66.4 Lymphocytes % 19.2 Monocytes % 10.9 Eosinophils % 2.3 Basophils % 0.1 Nucleated RBC % 0.0 Absolute Neutrophils 7.28 H Absolute Lymphocytes 2.10 Absolute Monocytes 1.19 H Absolute Eosinophils 0.25 Absolute Basophils 0.01 Sodium 143 Potassium 3.6 Chloride 108 H Carbon Dioxide 34.5 H Anion Gap 0.5 L BUN 15 Creatinine 0.6 L Est GFR (CKD-EPI 2020) 112.59 Glucose 81 Calcium 8.2 L Total Bilirubin 0.35 AST 30 ALT 96 H Alkaline Phosphatase 52 Total Protein 5.3 L Albumin 2.4 L
--- NOTE | 2024-05-05 16:50 | CMDISCH_ITS ---
Date of service: 05/05/24 Time of Service: 16:50 LACE Index Scoring Tool Questions: Length of Stay (in days): 7 - 13 Was the patient admitted via the E.D.?: Yes Comorbidities: Chronic Pulmonary Disease E.D. Visits: 1 Answers: Total Score: 11 Risk of Readmission: High Risk Care Management Discharge Plan Reason for Hospitalization: COPD exacerbation - required intubation Discharge Plan: Wally is discharged home this evening with new orders for HH PT, RN and [employer]. He will f/u with his PCP, and continue to be followed by Palliative Care. Wally will transport home in a private vehicle with a friend and continue per his plan of care. Community connections referral was sent today, and Wally has already spoken with them. Patient/Family Education Needs: Review of discharge instructions, activity, limitations and discuss ask me 3. Services Needed at Discharge: Home Health Care Services and Physical Therapy (RN) [facility] Health Related Social Needs: No Data to Display
--- NOTE | 2024-05-05 17:21 | PDOC.HHF2F_ITS ---
Home Health Referral Home Health Orders Clinical synopsis of why skilled professionals are needed: end stage copd Medical diagnosis necessitation home health referral: end stage copd Registered Nurse: Check all that apply Assess for exacerbation of medical condition, instruct patient/caregivers on signs and symptoms to report for early detection: Ordered Physical Therapist: Check all that apply Increase strength & endurance for safe mobility at home: Ordered To design/establish home maintenance program: Ordered Fall reduction therapy program for patient with history of frequent falls: Ordered Home safety evaluation and teaching/gait training including stair management (if applicable): Ordered Better Breathing Program: Ordered Manager Department: Assist with community resources: Ordered Assist with nursing home care planning: Ordered Encounter Date and Reason: I certify that a FTF encounter for this patient was performed on May 05 and that such encounter was related to the primary reason the patient requires home health services. The encounter was conducted in the following manner: * By me as the certifying physician, REVERSAL PRINT INSPECTOR, PA or * By an inpatient physician, REVERSAL PRINT INSPECTOR or PA during an inpatient stay who communicated findings to me, Certification And Authentication I certify that I composed the above information based on my clinical judgment relating to this patient's medical condition and, if applicable, clinical findings communicated to me by the NPP or inpatient physician who performed the FTF encounter. Name of Provider that will be monitoring home health services: Tyson Crystal
--- NOTE | 2024-06-23 14:24 | W.POCUS ---
Pocus Exam Limited Cardiac Exam DATE OF EXAM: 04/28/24 TIME OF EXAM: 15:07 PROVIDER THAT PERFORMED THE STUDY: David Drake IS THIS A REPEAT EXAM DURING THIS ENCOUNTER: no REASON FOR EXAM: Dyspnea VISUALIZED STRUCTURES: four chambers, left atrium, left ventricle, LVOT, right atrium, right ventricle, aortic valve, mitral valve and IVC VIEW OBTAINED: Apical 4-Chamber, Parasternal long-axis, Parasternal short-axis and Subxiphoid PERTINENT FINDINGS/IMPRESSION: IVC inspiratory collapsability (DECREASED) DIFFERENTIAL DIAGNOSES: chf, pe Exam complete Limited Thoracic Lung Exam DATE OF EXAM: 04/28/24 TIME OF EXAM: 15:07 PROVIDER THAT PERFORMED THE STUDY: David Drake IS THIS A REPEAT EXAM DURING THIS ENCOUNTER: No REASON FOR EXAM: Acute Respiratory Distress Syndrome and Hypoxia VISUALIZED STRUCTURES: right anterior, left anterior, right lateral and left lateral PERTINENT FINDINGS/IMPRESSION: B-lines/left side and Pneumonia Exam complete
== END 2024-05-05 18:00 | disposition home or self-care (01) | DRG 208 ==
LOC: ER 08:15 → ICU 08:39
PROVIDERS: Family Medicine; General Practice; Hospitalist; Student in an Organized Health Care Education/Training Program; Admitting Provider Family Medicine; Emergency Provider Emergency Medicine; PCP Nurse Practitioner Family; Visit Provider Family Medicine
DX: J44.1 Chronic obstructive pulmonary disease with (acute) exacerbation (principal); J96.02 Acute respiratory failure with hypercapnia; I24.89 Other forms of acute ischemic heart disease; Z59.00 Homelessness unspecified; J95.851 Ventilator associated pneumonia; I74.5 Embolism and thrombosis of iliac artery; I74.09 Other arterial embolism and thrombosis of abdominal aorta; I73.9 Peripheral vascular disease, unspecified; I10 Essential (primary) hypertension; K21.9 Gastro-esophageal reflux disease without esophagitis; F17.210 Nicotine dependence, cigarettes, uncomplicated; M79.7 Fibromyalgia; R10.84 Generalized abdominal pain; F41.9 Anxiety disorder, unspecified; I48.91 Unspecified atrial fibrillation; M89.8X5 Other specified disorders of bone, thigh; Z79.899 Other long term (current) drug therapy; M47.816 Spondylosis without myelopathy or radiculopathy, lumbar region; F32.A Depression, unspecified; I25.2 Old myocardial infarction; I71.40 Abdominal aortic aneurysm, without rupture, unspecified; Z78.1 Physical restraint status
CPT/HCPCS: 00123; 31500; 36415; 51702; 71045; 71275; 76604; 80048; 80053; 82805; 83690; 85027; 87040; 87637; 87641; 93005; 93308; 94640; 96361; 96365; 96366; 96375; 97110; 97162; 97530; 99291; J1650; 74176; 76700; 80202; 81003; 81015; 83735; 84132; 84484; 85025; 93010; 93306; 94002; 94003; 94660; 94664; 94667; 94668; 99223; 99232; 99233; 99239; J0692; J1171; J2060; J2270; J2405; J2470; J2704; J2919; J3010; J3370; J3372; J3475; J3490; J7512; J7613; J7614; J7620

== ENCOUNTER 2024-05-26 15:36 | Emergency (ER) | payer MEDICAID, SELFPAY ==
[2024-05-26] VITALS (39 sets, daily range): BP systolic 92–131; BP diastolic 55–76; PULSE 93–117; RESP 12–25; TEMP 36.9–37; O2SAT 1–99
--- NOTE | 2024-05-26 15:30 | RT.EKG_ITS ---
APPROVED REPORT Exam: Resting ECG Reason for Exam: SOB Patient Location: E HR:110 bpm ECG Measurements Heart Rate 110 AXIS WI 112 P 87 QRSd 85 QRS 77 QT 337 T 78 QTc 457 Conclusion Sinus tachycardia...rate> 99 Right atrial enlargement...P>0.25mV 2 lds or<-0.24mV aVR/aVL No STEMI
--- NOTE | 2024-05-26 15:30 | DI.RAD_ITS ---
Exam(s) XR PORTABLE CHEST AP EXAM: XR PORTABLE CHEST AP CLINICAL HISTORY: SOB. TECHNIQUE: 2D digital imaging was performed. COMPARISON: CR,XR XR PORTABLE CHEST AP POST LINE from 04/26/2024 FINDINGS: Single AP portable view. I note that this patient was intubated on prior images of 04/26/2024. There presently chest leads in place Heart size is upper normal. The mediastinum is not widened. Lungs are clear. No infiltrates nor obvious pleural effusions. Hyperinflation/COPD emphysematous changes again noted. IMPRESSION: No acute pulmonary findings on this single AP portable view of the chest.COPD emphysematous changes a gain evident. DATA REPOSITORY: RADIATION DOSE DELIVERED:
--- NOTE | 2024-05-26 15:41 | ED.GENADUL_ITS ---
Discharge Plan Disposition Patient Disposition: Home Condition: Stable Discharge Details Clinical Impression: COPD with acute exacerbation, Influenza A, Right lower lobe consolidation Primary Care Provider: Celeste Rodrigues ED Provider: Jennifer Blank Home Meds and New Rx's Prescriptions: New doxycycline hyclate 100 mg tablet 100 mg PO BID 10 Days Qty: 20 0RF prednisone 50 mg tablet 50 mg PO DAILY 5 Days Qty: 5 0RF Rx Instructions: Take 1 tablet daily for the next 5 days oseltamivir [Tamiflu] 75 mg capsule 75 mg PO BID 5 Days Qty: 10 0RF Continued pregabalin [Lyrica] 25 mg capsule 25 mg PO BID Qty: 180 3RF ipratropium-albuterol 0.5 mg-3 mg(2.5 mg base)/3 mL solution for nebulization 3 ml inhalation QID PRN (Reason: wheezing) Qty: 180 12RF albuterol sulfate [Ventolin HFA] 90 mcg/actuation HFA aerosol inhaler 2 puff inhalation Q6H PRN (Reason: shortness of breath or wheezing) Qty: 8.5 3RF sertraline 25 mg tablet 25 mg PO DAILY Qty: 90 3RF aspirin [Adult Aspirin Regimen] 81 mg tablet,delayed release (DR/EC) 81 mg PO DAILY Qty: 90 1RF atorvastatin 20 mg tablet 20 mg PO DAILY Qty: 90 3RF cilostazol 100 mg tablet 100 mg PO BID Qty: 180 1RF losartan 25 mg tablet 25 mg PO DAILY Qty: 90 1RF Spiriva Respimat 2.5 mcg/actuation mist 2 puff inhalation DAILY Qty: 4 2RF budesonide-formoterol [Symbicort] 160-4.5 mcg/actuation HFA aerosol inhaler 2 puff inhalation Q12H Qty: 20.4 1RF Tums 300 mg (750 mg) tablet,chewable 300 mg PO BID PRN (Reason: dyspepsia) Qty: 90 1RF Eliquis 5 mg Tablet 5 mg PO BID Qty: 60 0RF metoprolol tartrate 25 mg tablet 25 mg PO DAILY Qty: 30 0RF morphine concentrate 20 mg/mL syringe 20 mg sublingual Q6H PRNQty: 15 0RF Rx Instructions: 5mg po q8 hr sob 20mg po q8 hr pain Discharge Instructions Instructions: COPD Exacerbation, Adult ED, Pneumonia, Adult ED, Flu, Adult ED Additional Instructions: Please take the prednisone daily for the next 5 days, take the Tamiflu twice a day for the next 5 days. Take the doxycycline twice a day for the next 10 days. You are testing positive for flu A, you also have a infiltrate in right lower lobe which could be early pneumonia. Please continue to use your inhalers as previously prescribed. Follow up with primary care provider in 3-5 days. Return to ED sooner if any worsening or concerns. Thank you for allowing us to care for you today. Referrals: Celeste Rodrigues NP [Primary Care Provider] - 3 days HPI General Mode of arrival: EMS . Date/Time Provider Initiated Documentation: 05/26/24 15:39 . Limitations to Documentation: no limitations . Information obtained by: patient, EMS, RN notes reviewed and old records reviewed . HPI Narrative: 58 year old male presents to the ER via EMS with cc of SOB, fever x 1 week. Dx with Influenza 1 week ago. Was seen at [facility] today and had a documented fever of 104, Sat 88 % RA, with tachypneia, was given Tylenol and 500 ml NS [employer]. Upon arrival pt is tri-podding,with prolonged expiration period feels warm to the touch. Lung sounds diminished bilaterally. Reports mid epigastric pain and abdominal pain which patient states is chronic. Patient has a hx of COPD, NSTEMI, PAD, GERD, Current every day smoker. Had a neb at home [employer] which reportedly helped. 92-93 % on 4L nc. Related Data Home Medications ?Medication ?Instructions ?Recorded ?Confirmed aspirin 81 mg tablet,delayed 81 mg PO DAILY #90 tabs 11/28/23 05/26/24 release (Adult Aspirin Regimen) atorvastatin 20 mg tablet 20 mg PO DAILY #90 tabs 11/28/23 05/26/24 cilostazol 100 mg tablet 100 mg PO BID #180 tabs 11/28/23 05/26/24 losartan 25 mg tablet 25 mg PO DAILY #90 tabs 11/28/23 05/26/24 ipratropium 0.5 mg-albuterol 3 mg 3 ml inhalation QID PRN wheezing 12/02/23 05/26/24 (2.5 mg base)/3 mL nebulization #180 mL soln tiotropium bromide 2.5 2 puff inhalation DAILY #4 grams 12/10/23 05/26/24 mcg/actuation mist for inhalation (Spiriva Respimat) budesonide-formoterol HFA 160 2 puff inhalation Q12H #20.4 grams 12/16/23 05/26/24 mcg-4.5 mcg/actuation aerosol inhaler (Symbicort) pregabalin 25 mg capsule (Lyrica) 25 mg PO BID #180 caps 02/10/24 05/26/24 apixaban 5 mg tablet (Eliquis) 5 mg PO BID #60 tabs 05/05/24 05/26/24 metoprolol tartrate 25 mg tablet 25 mg PO DAILY #30 tabs 05/05/24 05/26/24 morphine concentrate 20 mg/mL oral 20 mg sublingual Q6H PRN #15 mL 05/05/24 05/26/24 syringe (FOR ORAL USE ONLY) albuterol sulfate 90 mcg/actuation 2 puff inhalation Q6H PRN 05/11/24 05/26/24 aerosol inhaler (Ventolin HFA) shortness of breath or wheezing #8.5 grams sertraline 25 mg tablet 25 mg PO DAILY #90 tabs 05/11/24 05/26/24 calcium carbonate (Tums) 300 mg PO BID PRN dyspepsia #90 05/20/24 05/26/24 tabs doxycycline hyclate 100 mg tablet 100 mg PO BID 10 days #20 tabs 05/26/24 oseltamivir 75 mg capsule (Tamiflu) 75 mg PO BID 5 days #10 caps 05/26/24 prednisone 50 mg tablet 50 mg PO DAILY Inflammation 5 days 05/26/24 #5 tabs Previous Rx's ?Medication ?Instructions ?Recorded aspirin 81 mg tablet,delayed 81 mg PO DAILY #90 tabs 11/28/23 release (Adult Aspirin Regimen) atorvastatin 20 mg tablet 20 mg PO DAILY #90 tabs 11/28/23 cilostazol 100 mg tablet 100 mg PO BID #180 tabs 11/28/23 losartan 25 mg tablet 25 mg PO DAILY #90 tabs 11/28/23 ipratropium 0.5 mg-albuterol 3 mg 3 ml inhalation QID PRN wheezing 12/02/23 (2.5 mg base)/3 mL nebulization #180 mL soln tiotropium bromide 2.5 2 puff inhalation DAILY #4 grams 12/10/23 mcg/actuation mist for inhalation (Spiriva Respimat) budesonide-formoterol HFA 160 2 puff inhalation Q12H #20.4 grams 12/16/23 mcg-4.5 mcg/actuation aerosol inhaler (Symbicort) pregabalin 25 mg capsule (Lyrica) 25 mg PO BID #180 caps 02/10/24 apixaban 5 mg tablet (Eliquis) 5 mg PO BID #60 tabs 05/05/24 metoprolol tartrate 25 mg tablet 25 mg PO DAILY #30 tabs 05/05/24 morphine concentrate 20 mg/mL oral 20 mg sublingual Q6H PRN #15 mL 05/05/24 syringe (FOR ORAL USE ONLY) albuterol sulfate 90 mcg/actuation 2 puff inhalation Q6H PRN 05/11/24 aerosol inhaler (Ventolin HFA) shortness of breath or wheezing #8.5 grams sertraline 25 mg tablet 25 mg PO DAILY #90 tabs 05/11/24 calcium carbonate (Tums) 300 mg PO BID PRN dyspepsia #90 05/20/24 tabs doxycycline hyclate 100 mg tablet 100 mg PO BID 10 days #20 tabs 05/26/24 oseltamivir 75 mg capsule (Tamiflu) 75 mg PO BID 5 days #10 caps 05/26/24 prednisone 50 mg tablet 50 mg PO DAILY Inflammation 5 days 05/26/24 #5 tabs Allergies Allergy/AdvReac Type Severity Reaction Status Date / Time No Known Allergies Allergy Unverified 05/26/24 15:42 General PEGGY: 2 Review of Systems All systems reviewed & are unremarkable except as noted in HPI and below Constitutional Constitutional: Reports as per HPI and Reports difficulty sleeping Cardiovascular Cardiovascular: Reports dyspnea and Reports dyspnea on exertion Respiratory Respiratory: Reports as per HPI, Reports cough, Reports pain with cough, Reports dyspnea and Reports dyspnea on exertion Exam Narrative Exam Narrative: Constitutional: Alert and oriented x3. Appears stated age. Very thin body habitus. Appears acute on chronically ill Head: Normocephalic, no trauma. Eyes: Pupils PERRL, Red reflex noted, EOM's intact. Eyelids symmetrical without lesions, discharge, or swelling. ENT: Bilateral TM's WNL, External ear normal to inspection, no mastoid TTP, swelling, or erythema, Nasal turbinates WNL, no nasal discharge. Normal dentition, Posterior pharynx WNL, no exudate. Chest: RRR, Normal S1, S2, distal pulses intact. Resp: Lungs diminished to auscultation, prolonged expiratory phase, tripodding initially Abdomen: Soft, non-distended, Normoactive bowel sounds all 4 quads. Musculoskeletal: Normal gait, Moves all 4 extremities without difficulty. Skin: No suspicious rashes or lesions. Capillary refill less than 2 sec. Neurologic: Cranial nerves II-XII intact. Alert and oriented x 3. Motor: No deficits noted. Sensory: Intact bilaterally all 4 extremities. Hematologic/Lymphatic: No ecchymosis, no lymphadenopathy. Course Lab/Test Results Lab/Test Results: 05/26/24 15:30 Blood Blood Culture - Pending 05/26/24 15:30 Blood Blood Culture - Pending Medical Decision Making 58 year old male presents to the ER via EMS with cc of SOB, fever x 1 week. Dx with Influenza 1 week ago. Was seen at [facility] and had a documented fever of 104, Sat 88 % RA, with tachypneia, was given Tylenol and 500 ml NS [employer]. Upon arrival pt is tri-podding,with prolonged expiration period feels warm to the touch. Lung sounds diminished bilaterally. Reports mid epigastric pain and abdominal pain which patient states is chronic. Patient has a hx of COPD, NSTEMI, PAD, GERD, Current every day smoker. Had a neb at home [employer] which reportedly helped. 92-93 % on 4L nc. Decreased O2 to 1.5 L n/c at this time patient is satting 97%, will continue to monitor. VBG within normal limits, pH is 7.47, pCO2 35, pO2 92 bicarb 25 CO2 23 O2 sat 98% lactate is 1.3. No leukocytosis. Remainder of the labs are pending at this time. Patient states he quit smoking after his last admission. Blood Pressure is 107/ 59 MAP 75 at this time, O2 sat 93% on 1.5 L. Heart rate 103. D-dimer elevated at 1219, CT chest ordered to rule out PE, sodium 135 glucose 119 calcium 8.3 which initial troponin 18, albumin 3.0 urinalysis is within normal limits. Positive for flu. Will give Tamiflu. Pending CT results. Informed by ED staff toxicologist that patient has been on since before CAT scan this time he is 95% in the good pleth. Ordered Tamiflu, will send home with dose of Prednisone and close follow up with PCP. Spoke with Dr. Chinchilla radiologist regarding chest CT, no PE, CT results and read noted below. Will attempt a ambulatory trial. He has been on room air for the last hour satting 90% or above. Patient discharged with a ride, O2 sat 91 to 94% on room air with exertion. Patient reports some increased shortness of breath and anxiety. He was discharged home with prescription for prednisone, Tamiflu, doxycycline for possible early pneumonia.. This text was generated using IntelligentMDxation system, please disregard any oddities of phrase or misspellings. Medical Records Medical records reviewed: Yes I reviewed the patient's medical records. Imaging Data Radiologic Study: Imaging: CT Scan Radiologist's impression: IMPRESSION: 1. No evidence of acute pulmonary emboli. No evidence of pulmonary infarction.No pleural effusions. 2. There is persistent-slightly increased infiltrate in the posterior basal segment of the right lower lobe which will require follow-up to rule out neoplasm. There is no associated pleural effusion although there is a nearby small 0.7 cm calcified nodular density in the lateral basal segment of the right lower lobe, unchanged from previous. 3. Minimally increasing infiltrate also evident in the left lower lobe. No left pleural effusion. No evidence of aortic dissection nor pericardial effusion. Heart size is normal. Report called by myself to ER provider 05/26/2024 at 5:56 p.m. Lab Data Lab results reviewed: Yes I reviewed the patient's lab results. Labs: 05/26/24 16:45 Blood Blood Culture - Pending 05/26/24 15:45 Blood Blood Culture - Pending Laboratory Tests Range/Units 05/26/24 05/26/24 05/26/24 15:45 17:00 17:02 WBC (4.4-10.8) 10^3/uL 5.63 RBC (4.36-5.78) 10^6/uL 3.96 L Hgb (13.5-17.5) g/dL 11.6 L Hct (40.0-50.0) % 35.0 L MCV (80-95) fL 88 MCH (27.0-33.0) pg 29.3 MCHC (32.0-36.0) % 33.1 RDW (11.8-14.1) % 12.6 Plt Count (130-400) 10^3/uL 251 MPV (8.0-11.0) fL 9.1 Immature Gran % % 0.4 Neutrophils % % 83.6 Lymphocytes % % 6.0 Monocytes % % 9.8 Eosinophils % % 0.0 Basophils % % 0.2 Nucleated RBC % (0.0-0.3) % 0.0 Absolute Neutrophils (1.2-6.7) 10^3/uL 4.71 Absolute Lymphocytes (1.2-3.4) 10^3/uL 0.34 L Absolute Monocytes (0.1-0.8) 10^3/uL 0.55 Absolute Eosinophils (0.0-0.7) 10^3/uL 0.00 Absolute Basophils (0.0-0.2) 10^3/uL 0.01 PT (9.1-11.1) sec 12.7 H INR (0.9-1.1) 1.3 H APTT (20.6-30.2) sec 32.2 H D-Dimer (<500) ng/mlFEU 1219 H VBG pH (7.31-7.41) 7.47 H VBG pCO2 (41-51) mmHg 35 L VBG pO2 mmHg 92 VBG HCO3 (23-28) mmol/L 25 VBG Total CO2 (24-29) mmol/L 23 L VBG O2 Saturation % 98 VBG Base Excess (-2-3) mmol/L 1 VBG Lactate (<or=2.0) mmol/L 1.3 Sodium (136-145) mmol/L 135 L Potassium (3.5-5.1) mmol/L 3.7 Chloride (98-107) mmol/L 100 Carbon Dioxide (21.0-32.0) mmol/L 24.5 Anion Gap (3-11) mmol/L 10.5 BUN (7-18) mg/dL 15 Creatinine (0.70-1.30) mg/dL 1.0 Est GFR (CKD-EPI 2020) (mL/min/1.73m2) 87.78 Glucose (74-106) mg/dL 119 H Calcium (8.5-10.1) mg/dL 8.3 L Magnesium (1.8-2.4) mg/dL 1.8 Total Bilirubin (0.2-1.0) mg/dL 0.33 AST (15-37) U/L 34 ALT (16-63) U/L 35 Alkaline Phosphatase (46-116) U/L 72 Troponin I (<or=76) ng/L 18 17 NT-Pro-B Natriuret Pep (<300) pg/mL 178 Total Protein (6.4-8.2) g/dL 6.5 Albumin (3.4-5.0) g/dL 3.0 L Urine Color (Yellow) Yellow Urine Clarity (Clear) Clear Urine pH (5-8) 6.0 Ur Specific [place] (1.005-1.025) 1.025 Urine Protein (Neg-Trace) mg/dL Trace Urine Ketones (Negative) mg/dL Negative Urine Blood (Negative) Negative Urine Nitrite (Negative) Negative Urine Bilirubin (Negative) Negative Urine Urobilinogen (Up to 0.2) mg/dL 0.2 Ur Leukocyte Esterase (Negative) Negative Urine Glucose (Negative) mg/dL Negative Range/Units 05/26/24 18:30 WBC (4.4-10.8) 10^3/uL RBC (4.36-5.78) 10^6/uL Hgb (13.5-17.5) g/dL Hct (40.0-50.0) % MCV (80-95) fL MCH (27.0-33.0) pg MCHC (32.0-36.0) % RDW (11.8-14.1) % Plt Count (130-400) 10^3/uL MPV (8.0-11.0) fL Immature Gran % % Neutrophils % % Lymphocytes % % Monocytes % % Eosinophils % % Basophils % % Nucleated RBC % (0.0-0.3) % Absolute Neutrophils (1.2-6.7) 10^3/uL Absolute Lymphocytes (1.2-3.4) 10^3/uL Absolute Monocytes (0.1-0.8) 10^3/uL Absolute Eosinophils (0.0-0.7) 10^3/uL Absolute Basophils (0.0-0.2) 10^3/uL PT (9.1-11.1) sec INR (0.9-1.1) APTT (20.6-30.2) sec D-Dimer (<500) ng/mlFEU VBG pH (7.31-7.41) VBG pCO2 (41-51) mmHg VBG pO2 mmHg VBG HCO3 (23-28) mmol/L VBG Total CO2 (24-29) mmol/L VBG O2 Saturation % VBG Base Excess (-2-3) mmol/L VBG Lactate (<or=2.0) mmol/L Sodium (136-145) mmol/L Potassium (3.5-5.1) mmol/L Chloride (98-107) mmol/L Carbon Dioxide (21.0-32.0) mmol/L Anion Gap (3-11) mmol/L BUN (7-18) mg/dL Creatinine (0.70-1.30) mg/dL Est GFR (CKD-EPI 2020) (mL/min/1.73m2) Glucose (74-106) mg/dL Calcium (8.5-10.1) mg/dL Magnesium (1.8-2.4) mg/dL Total Bilirubin (0.2-1.0) mg/dL AST (15-37) U/L ALT (16-63) U/L Alkaline Phosphatase (46-116) U/L Troponin I (<or=76) ng/L Cancelled NT-Pro-B Natriuret Pep (<300) pg/mL Total Protein (6.4-8.2) g/dL Albumin (3.4-5.0) g/dL Urine Color (Yellow) Urine Clarity (Clear) Urine pH (5-8) Ur Specific [place] (1.005-1.025) Urine Protein (Neg-Trace) mg/dL Urine Ketones (Negative) mg/dL Urine Blood (Negative) Urine Nitrite (Negative) Urine Bilirubin (Negative) Urine Urobilinogen (Up to 0.2) mg/dL Ur Leukocyte Esterase (Negative) Urine Glucose (Negative) mg/dL Quality:SDOH Health Related Social Needs: No Data to Display PFSH All Active Problems (Updated 05/26/24 @ 18:12 by Jennifer Blank NP) Right lower lobe consolidation (Acute) Influenza A (Acute) COPD with acute exacerbation (Acute) Influenza A (Acute) Hypertension (Chronic) Lytic bone lesion of hip (Acute) Atrial fibrillation (Chronic) Palliative care patient (Acute) Demand ischemia (Acute) COPD with acute exacerbation (Acute) Acute respiratory failure (Acute) Homeless (Acute) Bilateral tinnitus (Acute) Nicotine dependence, cigarettes, uncomplicated (Acute) Iliac artery occlusion, left (Acute) Screening for malignant neoplasm of colon declined (Acute) Low back pain (Chronic 07/11/20) MRI at [place]- mild spondylotic changes w/ no significant stenosis. A left foraminal region posterior annular fissure is present at L4-5 intervertebral disc w/ no herniation Fibromyalgia (Acute ~06/19/18) [facility] rheumatology visit in 2019 Chronic abdominal pain (Acute) CT at [place] 08/14/20 incidential occlusion of the left common iliac artery since previous study in 05/18/19 Otherwise no acute process identified. Unspecified dental caries (Acute) and gum disease Tubular adenoma (Acute 05/22/16) Depression (Acute) Anxiety (Acute) Medical History COPD (chronic obstructive pulmonary disease) Asthma NSTEMI (non-ST elevated myocardial infarction) (10/21/22) Hypertension PAD (peripheral artery disease) Per [facility] vascular Dr. Tori Diaz. ABIs demonstrate: Right mild, left moderate/severe GERD (gastroesophageal reflux disease) Surgical History History of open reduction and internal fixation (ORIF) procedure Hx of appendectomy Colonoscopy - IV Sedation (05/22/16) with polypectomy by forceps Family History Mother Heart disease Asthma Depression Father Personal history of malignant neoplasm LUNG Stroke Hyperlipidemia Social History Smoking/Tobacco Use Status: Former Tobacco Use Quit Date: 04/26/24 Tobacco: How many years used: 30 Second Hand Exposure: Yes Smoking risk assessment performed?: Yes Alcohol Intake: never Substance use type: does not use Caregiver/Support person: Yes Household members: none Housing: house Communication Needs: None Do you need help understanding health information?: Often Pets and animals: No Sexually active: No Do you think of yourself as: straight/heterosexual Current gender identity: male What is your relationship status?: never How often do you talk on the phone with friends or family?: three or more times per week How often do you get together with friends or relatives?: decline to answer Do you belong to any clubs or organized social groups?: no Panel score (0-1 are the most socially isolated patients): 1 What type of physical activity do you participate in: walking Duration: 15-30 minutes/day Frequency: 1-2 times per week Carole/Buddhism: None Special carole needs: No Seatbelt use: always Drive intox or ride w/intox shuttle truck driver: No Do you feel safe at home: Yes Do you feel safe in your relationship?: Yes
[2024-05-26] MEDS: Albuterol/Ipratropium 3 ML UPD VIAL UPD (15:55)
[2024-05-26] MEDS: methylPREDNISolone SUCC 125 MG VIAL IVP (15:55)
[2024-05-26 15:56] LABS: BE (Venous) 1 mmol/L (-2-3); HCO3 (Venous) 25 mmol/L (23-28); O2 Sat (Venous) 98 %; TCO2 (Venous) 23 mmol/L (24-29); pCO2 (Venous) 35 mmHg (41-51); pH (Venous) 7.47 (7.31-7.41); pO2 (Venous) 92 mmHg
[2024-05-26 15:57] LABS: Lactate 1.3 mmol/L (<or=2.0)
[2024-05-26 16:01] LABS: Abs Immature Grans 0.02 10^3/uL (0.0-0.06); Absolute Basophil Count 0.01 10^3/uL (0.0-0.2); Absolute Lymphocyte Count 0.34 10^3/uL (1.2-3.4); Absolute Monocyte Count 0.55 10^3/uL (0.1-0.8); Absolute Neutrophil Count 4.71 10^3/uL (1.2-6.7); Basophils % 0.2 %; HGB 11.6 g/dL (13.5-17.5); Immature Grans % 0.4 %; MCH 29.3 pg (27.0-33.0); MCHC 33.1 % (32.0-36.0); MCV 88 fL (80-95); MPV 9.1 fL (8.0-11.0); Monocytes % 9.8 %; Neutrophils % 83.6 %; Platelet Count 251 10^3/uL (130-400); RBC 3.96 10^6/uL (4.36-5.78); RDW 12.6 % (11.8-14.1); RDW-SD 41.3 fL; WBC 5.63 10^3/uL (4.4-10.8)
[2024-05-26 16:19] LABS: INR 1.3 (0.9-1.1); PTT Activated 32.2 sec (20.6-30.2); Prothrombin Time 12.7 sec (9.1-11.1)
[2024-05-26 16:27] LABS: D-Dimer 1219 ng/mlFEU (<500)
--- NOTE | 2024-05-26 16:30 | DI.CT_ITS ---
Exam(s) CT CHEST PE CTA EXAM: CT CHEST PE CTA CLINICAL HISTORY: Elevated dimer. Shortness of breath TECHNIQUE: Imaging Protocol: CT angiography of the chest was performed using pulmonary embolus kristian col. Multi planar reconstructions were performed. CONTRAST MATERIAL: Intravenous: Omnipaque 350 Contrast volume: 65 cc COMPARISON: CT CT CHEST PE CTA from 04/28/2024 FINDINGS: CHEST: PULMONARY ARTERIES: There are no intraluminal filling defects to suggest acute pulmonary emboli. LUNGS: There is COPD emphysematous changes again noted in both lung salgado. There is persistent infi ltrate in the right lower lobe posterior basal segment which appears slightly more confluent than pre vious but again not associated with a pleural effusion. In addition, there is an unchanged 7 mm nodu lar density in the lateral basal segment of the right lower lobe, unchanged. Also some increased mar kings are noted in the medial basal segment of the right lower lobe, unchanged. There are no signifi cant findings in the superior segment of the right lower lobe nor significant focal findings in the r ight upper lobe and right middle lobe. In the opposite-left lung there are no findings in the left u pper lobe and lingular segment. No findings in superior segment left lower lobe. However, there is some mild increased subpleural infiltrate in the lateral aspect of the left lower lobe. There is per sistent subpleural infiltrate in the posterior basal segment of the left lower lobe. No pleural effu rajani on either side. MEDIASTINUM: There is no hilar nor mediastinal adenopathy. Visualized thyroid unremarkable. CARDIAC: Heart size is normal. There is no pericardial effusion.Caliber of the thoracic aorta is wit hin normal limits. No evidence of aortic dissection. There is no significant shift of the interventr icular septum. PARTIALLY VISUALIZED UPPERMOST ABDOMEN: Patient is cachectic. No adrenal masses evident. OSSEOUS: No significant osseous lesions.No fractures. IMPRESSION: 1. No evidence of acute pulmonary emboli. No evidence of pulmonary infarction.No pleural effusions. 2. There is persistent-slightly increased infiltrate in the posterior basal segment of the right lowe r lobe which will require follow-up to rule out neoplasm. There is no associated pleural effusion al though there is a nearby small 0.7 cm calcified nodular density in the lateral basal segment of the r ight lower lobe, unchanged from previous. 3. Minimally increasing infiltrate also evident in the left lower lobe. No left pleural effusion. No evidence of aortic dissection nor pericardial effusion. Heart size is normal. Report called by myself to ER provider 05/26/2024 at 5:56 p.m. RADIATION DOSE DELIVERED: 114.91mGy.cm Total DLP DATA REPOSITORY: All CT scans at this facility are submitted to the National Radiology Data Registry (NRDR) Dose Index Registry (DIR) with the [employer] (ACR). RADIATION OPTIMIZATION: All CT scans at this facility use at least one of these dose optimization te chniques: automated exposure control; mA and/or kV adjustment per patient size (includes targeted exa ms where dose is matched to clinical indication); or iterative reconstruction.
[2024-05-26 16:31] LABS: ALT 35 U/L (16-63); AST 34 U/L (15-37); Alkaline Phosphatase 72 U/L (46-116); Anion Gap 10.5 mmol/L (3-11); BUN 15 mg/dL (7-18); Bilirubin, Total 0.33 mg/dL (0.2-1.0); CO2 24.5 mmol/L (21.0-32.0); Calcium 8.3 mg/dL (8.5-10.1); Chloride 100 mmol/L (98-107); Estimated GFR 87.78 (mL/min/1.73m2); Glucose 119 mg/dL (74-106); Magnesium 1.8 mg/dL (1.8-2.4); NT-proBNP 178 pg/mL (<300); Potassium 3.7 mmol/L (3.5-5.1); Sodium 135 mmol/L (136-145); Total Protein 6.5 g/dL (6.4-8.2); Troponin I 18 ng/L (<or=76)
[2024-05-26] MEDS: Normal Saline - Diluent 50 ML VIAL IJ (16:58)
[2024-05-26] MEDS: Omnipaque 350 MG/ML 100 ML BTL 65 ML IJ (16:59)
[2024-05-26 17:08] LABS: Bilirubin Negative (Negative); Blood Negative (Negative); Clarity Clear (Clear); Glucose Negative (Negative); Ketones Negative (Negative); Leukocyte Esterase Negative (Negative); Nitrite Negative (Negative); Specific Gravity 1.025 (1.005-1.025); Urobilinogen 0.2 mg/dL (Up to 0.2)
[2024-05-26] MEDS: Oseltamivir 75 MG CAP PO (17:35)
[2024-05-26 17:57] LABS: Troponin I 17 ng/L (<or=76)
[2024-05-26] MEDS: Doxycycline Hyclate 100 MG, 2 CAPS/BTL PO (18:36)
[2024-05-26] MEDS: Doxycycline Hyclate 100 MG CAP PO (18:37)
[2024-05-26] MEDS: Inhaler, Assist Device 1 EACH MC (18:37)
[2024-05-26] MEDS: Albuterol HFA 8 GM 60 PUFF INH IH (18:37)
== END 2024-05-26 18:41 | disposition home or self-care (01) ==
PROVIDERS: Emergency Provider Registered Nurse Emergency; PCP Nurse Practitioner Family
DX: J10.08 Influenza due to other identified influenza virus with other specified pneumonia (principal); J18.1 Lobar pneumonia, unspecified organism; J44.1 Chronic obstructive pulmonary disease with (acute) exacerbation; I10 Essential (primary) hypertension; I48.91 Unspecified atrial fibrillation; I25.2 Old myocardial infarction; Z79.82 Long term (current) use of aspirin; Z79.01 Long term (current) use of anticoagulants; Z87.891 Personal history of nicotine dependence
CPT/HCPCS: 36415; 71275; 80053; 82805; 87040; 87637; 93005; 94640; 96374; 99285; 71045; 81003; 83605; 83735; 83880; 84484; 85025; 85379; 85610; 85730; 93010; J2919; J3490; J7620

== ENCOUNTER 2024-12-28 00:39 | Outpatient (CLI) | payer MEDICAID, SELFPAY | END 2024-12-28 00:40 | disposition home or self-care (01) | LOC: RT 00:39 | PROVIDERS: PCP Nurse Practitioner Family; Visit Provider Physician Assistant Surgical | DX: J44.9 Chronic obstructive pulmonary disease, unspecified (principal); F17.210 Nicotine dependence, cigarettes, uncomplicated | CPT/HCPCS: 94762 ==

== ENCOUNTER 2024-12-28 00:52 | Outpatient (CLI) | payer MEDICAID, SELFPAY ==
--- NOTE | 2024-12-28 06:00 | DI.CTLCSR_ITS ---
Exam(s) CT CHEST LUNG CANCER SCREEN EXAM: CT CHEST LUNG CANCER SCREEN CLINICAL HISTORY: Screening for lung cancer,FORMER TOBACCO USE,Z87.891 TECHNIQUE: Imaging Protocol: Axial computed tomography images with coronal and sagittal reformatted images were created and reviewed. Low dose screening protocol. COMPARISON: CT UPPER ABD WITH CONTRAST (P) from 06/02/[address] CHEST LUNG CANCER SCREEN from 03/13/[address] ABDOMEN PELVIS CTA from 11/21/[address] CHEST PE CTA from 11/21/[address] CHEST PE CTA from 04/28/[address] CHEST PE CTA from 05/26/2024 FINDINGS: Tracheobronchial tree: No bronchiectasis or mucus plugging. Mediastinum and Alison: No dominant adenopathy or fluid collection. Pulmonary parenchyma: New roughly 2 centimeter area of spiculation with central cavitation in the superior right upper lobe. Clearing of previously noted bibasilar infiltrates no consolidation. Severe emphysematous changes in the upper lobes. No significant interstitial changes. Lung Nodules: Stable 7 millimeter nodule right lung base. Stable 5 millimeter nodule posterior right upper lobe. Stable 5 millimeter nodule right middle lobe. Pleura: No effusion. No pneumothorax. Heart: The heart is not dilated. Mild coronary artery calcifications are seen. No pericardial effusion. Aorta: Thoracic aorta non-dilated. Upper abdomen: Unremarkable. Bones: Unremarkable for age. Soft Tissues: Unremarkable. IMPRESSION: New 2 centimeter area of spiculation in the right upper lobe. Other small nodules are stable. Lung RADS Cat 4B - Suspicious: Findings for which additional diagnostic testing and/or tissue sampling is recommended Lung-RADS 1.0 CATEGORIES: Category 0 - Prior chest CT exam(s) being located for comparison. Category 1 - Annual screening in 12 months. No nodules or definitely benign nodules. Category 2 - Annual screening in 12 months. Benign appearance. Nodules with low likelihood of becoming active cancer. Category 3 - 6-month follow-up. Probably benign. Short-term follow-up suggested. Nodules with low likelihood of becoming active cancer. Category 4A - 3-month follow-up and CT/PET if >8 mm in size. Suspicious finding. Findings which require additional testing. Category 4B - Findings which require additional testing and tissue sampling. Category 4X - Category 3 or 4 nodules with additional features or imaging findings that increases the suspicion of malignancy. Modifier S- Potentially clinically significant findings (non lung cancer) Unexpected findings RADIATION DOSE DELIVERED: 25.15mGy.cm Total DLP DATA REPOSITORY: All CT scans at this facility are submitted to the National Radiology Data Registry (NRDR) Dose Index Registry (DIR) with the [employer] ([employer]). RADIATION OPTIMIZATION: All CT scans at this facility use at least one of these dose optimization techniques: automated exposure control; mA and/or kV adjustment per patient size (includes targeted exams where dose is matched to clinical indication); or iterative reconstruction.
== END 2024-12-28 01:12 ==
LOC: DI 00:52
PROVIDERS: PCP Nurse Practitioner Family; Visit Provider Physician Assistant Surgical
DX: Z87.891 Personal history of nicotine dependence (principal); Z12.2 Encounter for screening for malignant neoplasm of respiratory organs
CPT/HCPCS: 71271